=== PATIENT | female | born 1955 | race Caucasian/White ===

== ENCOUNTER 2017-12-11 18:19 | Emergency (ER) | payer MEDICARE, MEDICAID ==
--- NOTE | 2017-12-11 19:08 | EDM.PDOC ---
ED HPI GENERAL MEDICAL PROBLEM - General Chief Complaint: Bite:Animal, Insect Stated Complaint: BEE STING ON LEFT WRIST/INFECTION Time Seen by Provider: 12/11/17 18:55 Source of Information: Reports: Patient History Limitations: Reports: No Limitations - History of Present Illness INITIAL COMMENTS - FREE TEXT/NARRATIVE: The patient got stung by a bee a few days ago and now she has redness and itching to that area. She had a bad bee sting 10 years ago and she had a bad infection and she has a bad scare to her forearm. She denies any fever or chills with this one. She has no chest pain, shortness of breath, abdominal pain, nausea or vomiting. She has some itching with it but very little pain. Onset: Sudden Duration: Day(s): (a couple days ago) Location: Reports: Upper Extremity, Left (Forearm) Quality: Reports: Other (Itchy) Improves with: Reports: None Worsens with: Reports: None Context: Reports: Other (Stung by a bee) Associated Symptoms: Reports: No Other Symptoms Left Arm Pain Score (Numeric/FACES): 2 - Related Data Allergies Allergy/AdvReac Type Severity Reaction Status Date / Time No Known Allergies Allergy Verified 12/11/17 18:43 Home Meds: Home Meds Doxycycline [Vibramycin] 100 mg PO BID #20 cap 12/11/17 [Rx] Lisinopril 10 mg PO DAILY 12/11/17 [History] Simvastatin [Zocor] 20 mg PO BEDTIME 12/11/17 [History] Umeclidinium Brm/Vilanterol Tr [Anoro Ellipta 62.5-25 MCG] 1 puff INH DAILY 05/21 [History] Past Medical History Cardiovascular History: Reports: Hypertension Respiratory History: Reports: Other (See Below) Other Respiratory History: lung issue Social & Family History - Tobacco Use Smoking Status *Q: Current Every Day Smoker Years of Tobacco use: 40 Packs/Tins Daily: 0.5 ED ROS GENERAL - Review of Systems Review Of Systems: See Below Constitutional: Reports: No Symptoms HEENT: Reports: No Symptoms Respiratory: Reports: No Symptoms Cardiovascular: Reports: No Symptoms Endocrine: Reports: No Symptoms GI/Abdominal: Reports: No Symptoms : Reports: No Symptoms Musculoskeletal: Reports: Other (Left forearm redness and itchiness) ED EXAM, ANIMAL BITE - Physical Exam Exam: See Below Exam Limited By: No Limitations General Appearance: Alert, No Apparent Distress Ears: Normal External Exam Nose: Normal Inspection Head: Atraumatic, Normocephalic Neck: Normal Inspection Respiratory/Chest: No Respiratory Distress Extremities: Other (3cm circular area of erythema to the left inner forearm. She has a few small little puncture wounds and 1 larger puncture wound with a scar on it.) Course - Vital Signs Last Recorded V/S: Last Vital Signs Temp 98.2 F 12/11/17 18:44 Pulse 100 12/11/17 18:44 Resp 20 12/11/17 18:44 BP 177/87 H 12/11/17 18:44 Pulse Ox 89 L 12/11/17 18:44 - Re-Assessments/Exams Free Text/Narrative Re-Assessment/Exam: 12/11/17 19:06 She has a cellulitis from a bee sting. I will get her on some doxycycline and have her follow up with Dr Martinez. Departure - Departure Time of Disposition: 19:10 Disposition: Home, Self-Care 01 Condition: Good Clinical Impression: Cellulitis Qualifiers: Site of cellulitis: extremity Site of cellulitis of extremity: upper extremity Laterality: left Qualified Code(s): L03.114 - Cellulitis of left upper limb Bee sting Qualifiers: Encounter type: initial encounter Injury intent: accidental or unintentional Qualified Code(s): T63.441A - Toxic effect of venom of bees, accidental ( unintentional), initial encounter - Discharge Information Prescriptions: Doxycycline [Vibramycin] 100 mg PO BID #20 cap Referrals: Bernard Martinez MD [Primary Care Provider] - 1 Week Additional Instructions: Take the doxycycline 2 times per day for 10 days. Apply warm compresses to the affected area 3 times per day and apply antibiotic ointment after. Follow up with Dr Martinez within a week. Please return if you are worse.
== END 2017-12-11 19:20 | disposition home or self-care (01) ==
LOC: JD.ED 18:19
DX: T63.441A Toxic effect of venom of bees, accidental (unintentional), initial encounter (principal); L03.114 Cellulitis of left upper limb; F17.210 Nicotine dependence, cigarettes, uncomplicated; I10 Essential (primary) hypertension
CPT/HCPCS: 99281; 99283

== ENCOUNTER 2020-08-07 20:14 | Inpatient (IN) | payer MEDICARE, MEDICAID ==
[2020-08-07] MEDS ORDERED: Sodium Chloride 0.9% 10 ML Syringe FLUSH PRN (20:33)
--- NOTE | 2020-08-07 21:21 | EDM.PDOC ---
ED HPI GENERAL MEDICAL PROBLEM - General Chief Complaint: Respiratory Problem Stated Complaint: [facility] Time Seen by Provider: 08/07/20 20:26 Source of Information: Reports: Patient, RN Notes Reviewed History Limitations: Reports: No Limitations - History of Present Illness INITIAL COMMENTS - FREE TEXT/NARRATIVE: Patient is a 65-year-old female presenting to the emergency department after having a fall at home. She has a history of COPD and CHF for which she wears 3 L of chronic home O2. She states of the last few days, she has felt increasingly short of breath and weak. She was walking to the bathroom today and fell backward landing on her tailbone and then hitting her head. She does not feel that she lost consciousness, however she does have a fairly significant headache. She complains of bilateral lower extremity edema. States this has been around for months but that she feels it is worsened over the last few days. She states that she smokes "occasionally ". Denies any cough, fever, chills, nausea, vomiting, or diarrhea. Treatments HALL MONITOR: Reports: Other (see below) Other Treatments HALL MONITOR: nebulizer Headache Pain Score (Numeric/FACES): 9 Buttock Pain Score (Numeric/FACES): 8 - Related Data Allergies Allergy/AdvReac Type Severity Reaction Status Date / Time No Known Allergies Allergy Verified 08/07/20 20:17 Home Meds: Home Meds Simvastatin [Zocor] 20 mg PO BEDTIME 12/11/17 [History] Albuterol [Ventolin HFA] 2 puff INH Q4H PRN 08/07/20 [History] Fluticasone Propion/Salmeterol [Advair Hfa 230-21 Mcg Inhaler] 1 puff IH BID 08/07/20 [History] Furosemide [Lasix] 20 mg PO DAILY 08/07/20 [History] Past Medical History HEENT History: Reports: Impaired Vision Other HEENT History: Wears glasses Cardiovascular History: Reports: Heart Failure, High Cholesterol, Hypertension Respiratory History: Reports: COPD Other Respiratory History: lung issue Dermatologic History: Reports: Cellulitis Social & Family History - Tobacco Use Tobacco Use Status *Q: Former Tobacco User Used Tobacco, but Quit: Yes Month/Year Tobacco Last Used: 01/2019 ED ROS GENERAL - Review of Systems Review Of Systems: See Below Constitutional: Reports: Weakness, Fatigue. Denies: Fever, Chills HEENT: Reports: No Symptoms Respiratory: Reports: Shortness of Breath. Denies: Pleuritic Chest Pain, Cough Cardiovascular: Reports: Edema. Denies: Chest Pain, Lightheadedness Endocrine: Reports: No Symptoms GI/Abdominal: Reports: No Symptoms : Reports: No Symptoms Musculoskeletal: Reports: Back Pain (Lumbar and coccyx.) Skin: Reports: No Symptoms Neurological: Reports: Headache. Denies: Confusion, Dizziness Psychiatric: Reports: No Symptoms Hematologic/Lymphatic: Reports: No Symptoms Immunologic: Reports: No Symptoms ED EXAM, GENERAL - Physical Exam Exam: See Below General Appearance: Alert, WD/WN, No Apparent Distress Respiratory/Chest: No Respiratory Distress, No Accessory Muscle Use, Chest Non- Tender, Decreased Breath Sounds, Crackles (Bilateral bases), Wheezing (Faint expiratory) Cardiovascular: Normal Peripheral Pulses, Regular Rate, Rhythm, No Gallop, No JVD, No Murmur, No Rub, Other (3+ pitting edema to bilateral lower extremities from the level of the ankle to the groin. Pedal pulses 2+.) GI/Abdominal: Normal Bowel Sounds, Soft, Non-Tender, No Organomegaly, No Distention, No Abnormal Bruit, No Mass Back Exam: Normal Inspection, Vertebral Tenderness (L5-S5) Neurological: Alert, Oriented, CN II-XII Intact, Normal Cognition, Normal Gait, Normal Reflexes, No Motor/Sensory Deficits Psychiatric: Normal Affect, Normal Mood Skin Exam: Warm, Dry, Intact, Normal Color, No Rash #1 Interpretation EKG Date: 08/07/20 Time: 20:47 Rhythm: NSR Rate (Beats/Min): 76 [place]: RAD-Right [place] Deviation P-Wave: Present QRS: Normal ST-T: Normal QT: Normal Course - Vital Signs Last Recorded V/S: Last Vital Signs Temp 99.5 F 08/10/20 08:00 Pulse 75 08/10/20 08:00 Resp 18 08/10/20 08:00 BP 153/98 H 08/10/20 08:00 Pulse Ox 92 L 08/10/20 08:00 - Orders/Labs/Meds Orders: Medication Orders Acetaminophen (Tylenol) 975 mg PO Q6H PRN PRN Reason: Pain Albuterol (Proventil Neb Soln) 2.5 mg NEB Q2H PRN PRN Reason: Shortness Of Breath/wheezing Albuterol/Ipratropium (Duoneb 3.0-0.5 Mg/3 Ml) 3 ml NEB BIDRT [facility] Last Admin: 08/10/20 05:17 Dose: 3 ml Documented by: Admin: 08/09/20 20:29 Dose: 3 ml Documented by: Admin: 08/09/20 08:59 Dose: 3 ml Documented by: MARISA Enoxaparin Sodium (Lovenox) 40 mg SUBCUT DAILY [facility] Last Admin: 08/10/20 08:52 Dose: 40 mg Documented by: Admin: 08/09/20 08:07 Dose: 40 mg Documented by: Admin: 08/08/20 08:03 Dose: 40 mg Documented by: JA Furosemide (Lasix) 40 mg IVPUSH BIDDIURETIC [facility] Last Admin: 08/10/20 05:54 Dose: 40 mg Documented by: Admin: 08/09/20 13:58 Dose: 40 mg Documented by: JOSSE Ceftriaxone Sodium 1 gm/ (Sodium Chloride) 100 mls @ 200 mls/hr IV Q24H [facility] Last Admin: 08/09/20 21:09 Dose: 200 mls/hr Documented by: Infusion: 08/08/20 22:46 Dose: 200 mls/hr Documented by: Admin: 08/08/20 22:16 Dose: 200 mls/hr Documented by: EITAN Methylprednisolone Sodium Succinate (Solu-Medrol) 40 mg IVPUSH Q6H [facility] Last Admin: 08/10/20 08:52 Dose: 40 mg Documented by: Admin: 08/10/20 04:05 Dose: 40 mg Documented by: Admin: 08/09/20 19:53 Dose: 40 mg Documented by: Admin: 08/09/20 13:58 Dose: 40 mg Documented by: Admin: 08/09/20 07:38 Dose: 40 mg Documented by: Admin: 08/09/20 02:23 Dose: 40 mg Documented by: Admin: 08/08/20 19:59 Dose: 40 mg Documented by: Admin: 08/08/20 13:02 Dose: 40 mg Documented by: Admin: 08/08/20 07:54 Dose: 40 mg Documented by: JA Morphine Sulfate (Morphine) 2 mg IVPUSH Q2H PRN PRN Reason: Pain Last Admin: 08/09/20 04:31 Dose: 2 mg Documented by: Admin: 08/09/20 01:02 Dose: 2 mg Documented by: EITAN Nystatin (Nystop) 1 gm TOP QID PRN PRN Reason: Itching Last Admin: 08/10/20 10:12 Dose: 1 applic Documented by: JA Ondansetron HCl (Zofran) 4 mg IV Q4H PRN PRN Reason: Nausea/Vomiting Last Admin: 08/10/20 08:52 Dose: 4 mg Documented by: JA Oxycodone HCl (Oxycodone) 10 mg PO Q4H PRN PRN Reason: Pain Last Admin: 08/10/20 05:55 Dose: 10 mg Documented by: Admin: 08/09/20 23:02 Dose: 10 mg Documented by: Admin: 08/09/20 18:53 Dose: 10 mg Documented by: Admin: 08/09/20 13:57 Dose: 10 mg Documented by: Admin: 08/09/20 08:42 Dose: 10 mg Documented by: JOSSE Sodium Chloride (Saline Flush) 10 ml FLUSH ASDIRECTED PRN PRN Reason: Keep Vein Open Last Admin: 08/07/20 20:35 Dose: 10 ml Documented by: PAIGE Spironolactone (Aldactone) 25 mg PO DAILY [facility] Last Admin: 08/10/20 08:53 Dose: 25 mg Documented by: Admin: 08/09/20 08:08 Dose: 25 mg Documented by: JOSSE Labs: Laboratory Tests 08/07/20 08/07/20 08/07/20 Range/Units 20:25 20:25 20:25 WBC 12.16 H (3.98-10.04) K/mm3 RBC 5.04 (3.98-5.22) M/mm3 Hgb 12.1 (11.2-15.7) gm/dl Hct 45.1 H (34.1-44.9) % MCV 89.5 (79.4-94.8) fl MCH 24.0 L (25.6-32.2) pg MCHC 26.8 L (32.2-35.5) g/dl RDW Std Deviation 69.9 H (36.4-46.3) fL Plt Count 216 (182-369) K/mm3 MPV 10.3 (9.4-12.3) fl Neut % (Auto) 82.3 H (34.0-71.1) % Lymph % (Auto) 6.5 L (19.3-51.7) % [place] % (Auto) 9.3 (4.7-12.5) % Eos % (Auto) 1.3 (0.7-5.8) Baso % (Auto) 0.2 (0.1-1.2) % Neut # (Auto) 10.01 H (1.56-6.13) K/mm3 Lymph # (Auto) 0.79 L (1.18-3.74) K/mm3 [place] # (Auto) 1.13 H (0.24-0.36) K/mm3 Eos # (Auto) 0.16 (0.04-0.36) K/mm3 Baso # (Auto) 0.02 (0.01-0.08) K/mm3 Manual Slide Review Abnormal smear Puncture Site ABG pH (7.35-7.45) ABG pCO2 (35.0-45.0) mmHg ABG pO2 (80.0-100.0) mmHg ABG HCO3 (22.0-26.0) meq/L ABG O2 Saturation (96.0-97.0) % ABG Base Excess (-2-2.0) A-a Gradient mmHg O2 Delivery Device Oxygen Flow Rate FiO2 (21.00-100.00) % Sodium 137 (136-145) mEq/L Potassium 4.0 (3.5-5.1) mEq/L Chloride 96 L (98-107) mEq/L Carbon Dioxide 39 H (21-32) mEq/L Anion Gap 6.0 (5-15) BUN 19 H (7-18) mg/dL Creatinine 1.2 H (0.55-1.02) mg/dL Est Cr Clr Drug Dosing TNP Estimated GFR (MDRD) 45 (>60) mL/min BUN/Creatinine Ratio 15.8 (14-18) Glucose 143 H (80-115) mg/dL Lactic Acid (0.4-2.0) mmol/L Calcium 8.8 (8.5-10.1) mg/dL Total Bilirubin 1.5 H (0.2-1.0) mg/dL AST 12 L (15-37) U/L ALT 11 L (14-59) U/L Alkaline Phosphatase 78 (46-116) U/L Troponin I 0.034 (0.00-0.056) ng/mL C-Reactive Protein 1.0 (<1.0) mg/dL NT-Pro-B Natriuret Pep 79254 H (0-125) pg/mL Total Protein 7.2 (6.4-8.2) g/dl Albumin 3.5 (3.4-5.0) g/dl Globulin 3.7 gm/dL Albumin/Globulin Ratio 1.0 (1-2) Urine Color (Yellow) Urine Appearance (Clear) Urine pH (5.0-8.0) Ur Specific [place] (1.005-1.030) Urine Protein (Negative) Urine Glucose (UA) (Negative) Urine Ketones (Negative) Urine Occult Blood (Negative) Urine Nitrite (Negative) Urine Bilirubin (Negative) Urine Urobilinogen (0.2-1.0) Ur Leukocyte Esterase (Negative) U Hyaline Cast (Auto) (0-5) /lpf Urine RBC (0-5) /hpf Urine WBC (0-5) /hpf Urine WBC Clumps (NOT SEEN) /hpf Ur Squamous Epith Cells (0-5) /hpf Urine Bacteria (FEW) /hpf Urine Mucus (FEW) /hpf SARS-CoV-2 RNA (VIVIANA) (NEGATIVE) 08/07/20 08/07/20 08/07/20 Range/Units 20:37 20:45 21:37 WBC (3.98-10.04) K/mm3 RBC (3.98-5.22) M/mm3 Hgb (11.2-15.7) gm/dl Hct (34.1-44.9) % MCV (79.4-94.8) fl MCH (25.6-32.2) pg MCHC (32.2-35.5) g/dl RDW Std Deviation (36.4-46.3) fL Plt Count (182-369) K/mm3 MPV (9.4-12.3) fl Neut % (Auto) (34.0-71.1) % Lymph % (Auto) (19.3-51.7) % [place] % (Auto) (4.7-12.5) % Eos % (Auto) (0.7-5.8) Baso % (Auto) (0.1-1.2) % Neut # (Auto) (1.56-6.13) K/mm3 Lymph # (Auto) (1.18-3.74) K/mm3 [place] # (Auto) (0.24-0.36) K/mm3 Eos # (Auto) (0.04-0.36) K/mm3 Baso # (Auto) (0.01-0.08) K/mm3 Manual Slide Review Puncture Site Lt radial ABG pH 7.29 L (7.35-7.45) ABG pCO2 84.0 H* (35.0-45.0) mmHg ABG pO2 64.0 L (80.0-100.0) mmHg ABG HCO3 39.4 H (22.0-26.0) meq/L ABG O2 Saturation 86.1 L (96.0-97.0) % ABG Base Excess 10.3 H (-2-2.0) A-a Gradient 59 mmHg O2 Delivery Device Nasal cannula Oxygen Flow Rate 3.0 FiO2 32.00 (21.00-100.00) % Sodium (136-145) mEq/L Potassium (3.5-5.1) mEq/L Chloride (98-107) mEq/L Carbon Dioxide (21-32) mEq/L Anion Gap (5-15) BUN (7-18) mg/dL Creatinine (0.55-1.02) mg/dL Est Cr Clr Drug Dosing Estimated GFR (MDRD) (>60) mL/min BUN/Creatinine Ratio (14-18) Glucose (80-115) mg/dL Lactic Acid (0.4-2.0) mmol/L Calcium (8.5-10.1) mg/dL Total Bilirubin (0.2-1.0) mg/dL AST (15-37) U/L ALT (14-59) U/L Alkaline Phosphatase (46-116) U/L Troponin I (0.00-0.056) ng/mL C-Reactive Protein (<1.0) mg/dL NT-Pro-B Natriuret Pep (0-125) pg/mL Total Protein (6.4-8.2) g/dl Albumin (3.4-5.0) g/dl Globulin gm/dL Albumin/Globulin Ratio (1-2) Urine Color Brown H (Yellow) Urine Appearance Turbid H (Clear) Urine pH 6.0 (5.0-8.0) Ur Specific [place] > or = 1.030 (1.005-1.030) Urine Protein 3+ H (Negative) Urine Glucose (UA) Negative (Negative) Urine Ketones Trace H (Negative) Urine Occult Blood 3+ H (Negative) Urine Nitrite Positive H (Negative) Urine Bilirubin 2+ H (Negative) Urine Urobilinogen >=8.0 H (0.2-1.0) Ur Leukocyte Esterase Trace H (Negative) U Hyaline Cast (Auto) 0-5 (0-5) /lpf Urine RBC Too numerous to cnt H (0-5) /hpf Urine WBC 20-30 H (0-5) /hpf Urine WBC Clumps Many (NOT SEEN) /hpf Ur Squamous Epith Cells 0-5 (0-5) /hpf Urine Bacteria Many H (FEW) /hpf Urine Mucus Moderate H (FEW) /hpf SARS-CoV-2 RNA ([facility]IVIANA) Negative (NEGATIVE) 08/07/20 Range/Units 22:32 WBC (3.98-10.04) K/mm3 RBC (3.98-5.22) M/mm3 Hgb (11.2-15.7) gm/dl Hct (34.1-44.9) % MCV (79.4-94.8) fl MCH (25.6-32.2) pg MCHC (32.2-35.5) g/dl RDW Std Deviation (36.4-46.3) fL Plt Count (182-369) K/mm3 MPV (9.4-12.3) fl Neut % (Auto) (34.0-71.1) % Lymph % (Auto) (19.3-51.7) % [place] % (Auto) (4.7-12.5) % Eos % (Auto) (0.7-5.8) Baso % (Auto) (0.1-1.2) % Neut # (Auto) (1.56-6.13) K/mm3 Lymph # (Auto) (1.18-3.74) K/mm3 [place] # (Auto) (0.24-0.36) K/mm3 Eos # (Auto) (0.04-0.36) K/mm3 Baso # (Auto) (0.01-0.08) K/mm3 Manual Slide Review Puncture Site ABG pH (7.35-7.45) ABG pCO2 (35.0-45.0) mmHg ABG pO2 (80.0-100.0) mmHg ABG HCO3 (22.0-26.0) meq/L ABG O2 Saturation (96.0-97.0) % ABG Base Excess (-2-2.0) A-a Gradient mmHg O2 Delivery Device Oxygen Flow Rate FiO2 (21.00-100.00) % Sodium (136-145) mEq/L Potassium (3.5-5.1) mEq/L Chloride (98-107) mEq/L Carbon Dioxide (21-32) mEq/L Anion Gap (5-15) BUN (7-18) mg/dL Creatinine (0.55-1.02) mg/dL Est Cr Clr Drug Dosing Estimated GFR (MDRD) (>60) mL/min BUN/Creatinine Ratio (14-18) Glucose (80-115) mg/dL Lactic Acid 1.4 (0.4-2.0) mmol/L Calcium (8.5-10.1) mg/dL Total Bilirubin (0.2-1.0) mg/dL AST (15-37) U/L ALT (14-59) U/L Alkaline Phosphatase (46-116) U/L Troponin I (0.00-0.056) ng/mL C-Reactive Protein (<1.0) mg/dL NT-Pro-B Natriuret Pep (0-125) pg/mL Total Protein (6.4-8.2) g/dl Albumin (3.4-5.0) g/dl Globulin gm/dL Albumin/Globulin Ratio (1-2) Urine Color (Yellow) Urine Appearance (Clear) Urine pH (5.0-8.0) Ur Specific [place] (1.005-1.030) Urine Protein (Negative) Urine Glucose (UA) (Negative) Urine Ketones (Negative) Urine Occult Blood (Negative) Urine Nitrite (Negative) Urine Bilirubin (Negative) Urine Urobilinogen (0.2-1.0) Ur Leukocyte Esterase (Negative) U Hyaline Cast (Auto) (0-5) /lpf Urine RBC (0-5) /hpf Urine WBC (0-5) /hpf Urine WBC Clumps (NOT SEEN) /hpf Ur Squamous Epith Cells (0-5) /hpf Urine Bacteria (FEW) /hpf Urine Mucus (FEW) /hpf SARS-CoV-2 RNA ([facility]NA) (NEGATIVE) Meds: Medications Generic Name Dose Route Start Last Admin Trade Name Freq PRN Reason Stop Dose Admin Acetaminophen 975 mg 08/09/20 08:32 Tylenol PO Q6H PRN Pain Albuterol 2.5 mg 08/07/20 23:27 Proventil Neb Soln NEB Q2H PRN Shortness Of Breath/wheezing Albuterol/Ipratropium 3 ml 08/09/20 09:00 08/10/20 05:17 Duoneb 3.0-0.5 Mg/3 Ml NEB 3 ml BIDRT MESSI Administration Enoxaparin Sodium 40 mg 08/08/20 09:00 08/10/20 08:52 Lovenox SUBCUT 40 mg DAILY MESSI Administration Furosemide 40 mg 08/09/20 14:00 08/10/20 05:54 Lasix IVPUSH 40 mg BIDDIURETIC MESSI Administration Ceftriaxone Sodium 1 gm/ 100 mls @ 200 mls/hr 08/08/20 22:00 08/09/20 21:09 Sodium Chloride IV 200 mls/hr Q24H MESSI Administration Methylprednisolone Sodium Succinate 40 mg 08/08/20 08:00 08/10/20 08:52 Solu-Medrol IVPUSH 40 mg Q6H MESSI Administration Morphine Sulfate 2 mg 08/09/20 00:57 08/09/20 04:31 Morphine IVPUSH 2 mg Q2H PRN Administration Pain Nystatin 1 gm 08/10/20 10:07 08/10/20 10:12 Nystop TOP 1 applic QID PRN Administration Itching Ondansetron HCl 4 mg 08/07/20 23:27 08/10/20 08:52 Zofran IV 4 mg Q4H PRN Administration Nausea/Vomiting Oxycodone HCl 10 mg 08/09/20 08:32 08/10/20 05:55 Oxycodone PO 10 mg Q4H PRN Administration Pain Sodium Chloride 10 ml 08/07/20 20:33 08/07/20 20:35 Saline Flush FLUSH 10 ml ASDIRECTED PRN Administration Keep Vein Open Spironolactone 25 mg 08/09/20 09:00 08/10/20 08:53 Aldactone PO 25 mg DAILY MESSI Administration Discontinued Medications Generic Name Dose Route Start Last Admin Trade Name Freq PRN Reason Stop Dose Admin Albuterol/Ipratropium 3 ml 08/08/20 03:00 08/09/20 02:18 Duoneb 3.0-0.5 Mg/3 Ml NEB 3 ml Q6HRRT MESSI Administration Bisacodyl 10 mg 08/09/20 10:45 08/09/20 12:44 Dulcolax RECTAL 08/09/20 10:46 Not Given ONETIME ONE Bisacodyl 10 mg 08/10/20 09:43 08/10/20 10:12 Dulcolax RECTAL 08/10/20 09:44 10 mg ONETIME ONE Administration Furosemide 40 mg 08/07/20 21:50 08/07/20 21:56 Lasix IV 08/07/20 21:51 40 mg ONETIME ONE Administration Furosemide 40 mg 08/08/20 06:00 08/09/20 06:16 Lasix IVPUSH 40 mg BIDDIURETIC MESSI Administration Ceftriaxone Sodium 2 gm/ 100 mls @ 200 mls/hr 08/07/20 21:59 08/07/20 22:39 Sodium Chloride IV 08/07/20 22:28 200 mls/hr ONETIME ONE Administration Magnesium Sulfate 4 gm/ Premix 50 mls @ 12.5 mls/hr 08/09/20 08:00 08/09/20 08:09 IV 08/09/20 11:59 12.5 mls/hr ONETIME ONE Administration Influenza Virus Vaccine 1 each 08/08/20 00:14 Pharmacy To Dose - Influenza Vaccine IM 08/08/20 00:15 ONETIME ONE Influenza Virus Vaccine 240 mcg 08/08/20 10:00 Fluzone High-Dose Quad IM 08/08/20 10:01 .ONCE ONE Magnesium Hydroxide 30 ml 08/10/20 09:22 08/10/20 10:58 Milk Of Magnesia PO 08/10/20 09:23 Not Given ONETIME ONE Methylprednisolone Sodium Succinate 125 mg 08/07/20 23:31 08/07/20 23:54 Solu-Medrol IVPUSH 08/07/20 23:32 125 mg ONETIME ONE Administration Metoclopramide HCl 5 mg 08/10/20 09:34 08/10/20 09:56 Reglan IVPUSH 08/10/20 09:35 5 mg ONETIME ONE Administration Morphine Sulfate 2 mg 08/07/20 21:54 08/07/20 22:02 Morphine IVPUSH 08/07/20 21:55 2 mg ONETIME ONE Administration Morphine Sulfate 2 mg 08/07/20 23:27 08/08/20 20:00 Morphine IVPUSH 08/08/20 23:29 2 mg Q2H PRN Administration Pain (severe 7-10) Potassium Chloride 40 meq 08/09/20 08:00 08/09/20 08:08 Klor-Con M20 PO 08/09/20 08:01 40 meq ONETIME ONE Administration - Re-Assessments/Exams Free Text/Narrative Re-Assessment/Exam: Patient is a 65-year-old female presenting to the emergency department after having a fall at home. She states that she has been increasingly short of breath and weak over the last few days. She is a history of CHF and COPD. This evening, she was walking to the bathroom states she fell backward landing on her buttocks and hitting the back of her head. She does not feel that she lost consciousness. She does complain of a headache as well as sacral pain. On exam, she has fine crackles to the bilateral bases with some expiratory wheezing throughout. Lung sounds are diminished. Oxygen saturation was initially 90% on her home 3 L, however it had decreased to 83%. We have ordered an ABG to be completed prior to turning her O2 up. I have also ordered CBC, CMP, CRP, troponin, proBNP, EKG, chest x-ray, sacral x-ray, lumbar x-ray, head CT. 08/07/20 2100 ABG results on 3 L by nasal cannula showed pH of 7.29, PCO2 84, PO2 64, bicarb 39.4, O2 saturation 86.1 with a base excess of 10.3. This is indicating that patient is in partially compensated respiratory acidosis. I have ordered BiPAP to be started. Although remaining work-up is not resulted yet, I did call and speak with the hospitalist, Dr. Shirley to make them aware of the patient and that she will need to be admitted given her hypercapnia. 08/07/20 21:24 Hematology was significant for WBC minimally elevated at 12.16, CO2 39, BUN 19, creatinine 1.2, total bili 1.5, proBNP 10,237. Troponin was negative. EKG showed normal sinus rhythm at 76 with no signs of acute ischemia. Results of urinalysis and radiology studies are pending. 08/07/20 22:27 Urinalysis was grossly positive for urinary tract infection. Urine has been sent for culture. Have ordered blood cultures and lactic acid. Once cultures are collected, we will give Rocephin 2 g IV. Results of radiology indicate that she has a nondisplaced lower sacral fracture, chronic L2 compression fracture with mild compression deformities of L1 and L3, chest x-ray shows emphysema with bronchial wall thickening and some linear interstitial densities in the right lung base suggesting COPD exacerbation. Head CT shows no acute intracranial abnormalities. Patient is tolerating BiPAP at 12/6 on 6 L of O2. Oxygen saturations in the low 90s. Case discussed with Dr. Shirley. He will admit the patient to the ICU. Departure - Departure Time of Disposition: 22:27 Disposition: Admitted As Inpatient 66 Condition: Fair Clinical Impression: COPD exacerbation, Hypercapnic acidosis Congestive heart failure Qualifiers: Heart failure type: unspecified Heart failure chronicity: acute on chronic Qualified Code(s): I50.9 - Heart failure, unspecified Urinary tract infection Qualifiers: Urinary tract infection type: site unspecified Hematuria presence: with hematuria Qualified Code(s): N39.0 - Urinary tract infection, site not specified Sacral fracture Qualifiers: Encounter type: initial encounter Zone of sacrum fracture: unspecified portion of sacrum Fracture type: closed Qualified Code(s): S32.10XA - Unspecified fracture of sacrum, initial encounter for closed fracture - Discharge Information Sepsis Event Note (ED) - Evaluation Sepsis Screening Result: No Definite Risk
[2020-08-07] MEDS ORDERED: Furosemide 40 MG/4 ML VIAL IV ONE (21:50)
[2020-08-07] MEDS ORDERED: Morphine 2 MG/ML SYRINGE IVPUSH ONE (21:54)
[2020-08-07] MEDS ORDERED: cefTRIAXone 2 GM in Sodium Chloride 0.9% 100 ML IV ONE (21:59)
[2020-08-07] MEDS ORDERED: Ondansetron 4 MG/2 ML SDV IV PRN (23:27)
[2020-08-07] MEDS ORDERED: Albuterol 0.083% 2.5 MG/3 ML Neb Soln NEB PRN (23:27)
[2020-08-07] MEDS ORDERED: methylPREDNISolone Sodium Succinate 125 MG/2 ML SDV IVPUSH ONE (23:31)
--- NOTE | 2020-08-07 23:40 | PCM.HP.2 ---
H&P History of Present Illness - General Date of Service: 08/07/20 Admit Problem/Dx: Admission Diagnosis/Problem Admission Diagnosis/Problem Hypercapnia with mixed acid-base disorder - History of Present Illness Initial Comments - Free Text/Narative: 35-year-old female who has had increasing shortness of breath over the last 2 days presents to the emergency department with worsening shortness of breath, dyspnea on exertion, and cough. Patient is normally on 2 L of O2 via nasal cannula, but has increased to 3 L over the last couple of days because of shortness of breath. Today when she was walking to the bathroom she became lightheaded and fell backwards landing on her tailbone. In the emergency department she was found to have a nondisplaced sacral fracture and old compression fractures and degenerative changes of the lumbar spine. Head CT showed nothing significant and no bleeding. Patient was found to have severe hypercapnia with a PCO2 of 84 and a pH of 7.29. Patient was placed on BiPAP 07/09 and repeat blood gases showed some improvement in PCO2 of 81.2 and a pH of 7.32. Chest x-ray did show emphysematous changes and bronchitis. Headache Pain Score (Numeric/FACES): 9 Buttock Pain Score (Numeric/FACES): 8 - Related Data Allergies/Adverse Reactions: Allergies Allergy/AdvReac Type Severity Reaction Status Date / Time No Known Allergies Allergy Verified 08/07/20 20:17 Home Medications: Home Meds Simvastatin [Zocor] 20 mg PO BEDTIME 12/11/17 [History] Albuterol [Ventolin HFA] 2 puff INH Q4H PRN 08/07/20 [History] Fluticasone Propion/Salmeterol [Advair Hfa 230-21 Mcg Inhaler] 1 puff IH BID 08/07/20 [History] Furosemide [Lasix] 20 mg PO DAILY 08/07/20 [History] Past Medical History HEENT History: Reports: Impaired Vision Other HEENT History: Wears glasses Cardiovascular History: Reports: Heart Failure, High Cholesterol, Hypertension Respiratory History: Reports: COPD Other Respiratory History: lung issue Dermatologic History: Reports: Cellulitis Social & Family History - Tobacco Use Tobacco Use Status *Q: Former Tobacco User Used Tobacco, but Quit: Yes Month/Year Tobacco Last Used: 01/2019 H&P Review of Systems - Review of Systems: Review Of Systems: Comprehensive ROS is negative, except as noted in HPI. Exam - Exam Exam: See Below - Vital Signs Vital Signs: Last Vital Signs Temp 97.5 F 08/07/20 20:20 Pulse 75 08/07/20 22:45 Resp 18 08/07/20 22:45 BP 122/78 08/07/20 22:45 Pulse Ox 95 08/07/20 22:45 - Exam Quality Assessment: Supplemental Oxygen, Urinary Catheter General: Alert, Oriented, 4 HEENT: Conjunctiva Clear, Hearing Intact, Mucosa Moist & [place], Normal Nasal Septum Neck: Supple, Trachea Midline, 2 Lungs: Decreased Breath Sounds, Wheezing (Distant breath sounds with occasional wheezing). No: Normal Respiratory Effort (Mildly increased respiratory effort) Cardiovascular: Regular Rate, Regular Rhythm, Other (Distant breath sounds) GI/Abdominal Exam: Normal Bowel Sounds, Soft, Non-Tender, No Organomegaly, No Distention, No Abnormal Bruit, No Mass Back Exam: Normal Inspection Extremities: Normal Inspection, Normal Range of Motion, Non-Tender, Normal Capillary Refill, Pedal Edema (2+ pitting edema) Skin: Warm, Dry, Intact Neuro Extensive - Mental Status: Alert, Oriented x3, Normal Mood/Affect, Normal Cognition Psychiatric: Alert, Normal Affect, Normal Mood - Patient Data Lab Results Last 24 hrs: Laboratory Results - last 24 hr 08/07/20 08/07/20 08/07/20 Range/Units 20:25 20:25 20:25 WBC 12.16 H (3.98-10.04) K/mm3 RBC 5.04 (3.98-5.22) M/mm3 Hgb 12.1 (11.2-15.7) gm/dl Hct 45.1 H (34.1-44.9) % MCV 89.5 (79.4-94.8) fl MCH 24.0 L (25.6-32.2) pg MCHC 26.8 L (32.2-35.5) g/dl RDW Std Deviation 69.9 H (36.4-46.3) fL Plt Count 216 (182-369) K/mm3 MPV 10.3 (9.4-12.3) fl Neut % (Auto) 82.3 H (34.0-71.1) % Lymph % (Auto) 6.5 L (19.3-51.7) % Maury % (Auto) 9.3 (4.7-12.5) % Eos % (Auto) 1.3 (0.7-5.8) Baso % (Auto) 0.2 (0.1-1.2) % Neut # (Auto) 10.01 H (1.56-6.13) K/mm3 Lymph # (Auto) 0.79 L (1.18-3.74) K/mm3 Maury # (Auto) 1.13 H (0.24-0.36) K/mm3 Eos # (Auto) 0.16 (0.04-0.36) K/mm3 Baso # (Auto) 0.02 (0.01-0.08) K/mm3 Manual Slide Review Abnormal smear Puncture Site ABG pH (7.35-7.45) ABG pCO2 (35.0-45.0) mmHg ABG pO2 (80.0-100.0) mmHg ABG HCO3 (22.0-26.0) meq/L ABG O2 Saturation (96.0-97.0) % ABG Base Excess (-2-2.0) A-a Gradient mmHg O2 Delivery Device Oxygen Flow Rate FiO2 (21.00-100.00) % Blood Gas Comments Sodium 137 (136-145) mEq/L Potassium 4.0 (3.5-5.1) mEq/L Chloride 96 L (98-107) mEq/L Carbon Dioxide 39 H (21-32) mEq/L Anion Gap 6.0 (5-15) BUN 19 H (7-18) mg/dL Creatinine 1.2 H (0.55-1.02) mg/dL Est Cr Clr Drug Dosing TNP Estimated GFR (MDRD) 45 (>60) mL/min BUN/Creatinine Ratio 15.8 (14-18) Glucose 143 H (80-115) mg/dL Lactic Acid (0.4-2.0) mmol/L Calcium 8.8 (8.5-10.1) mg/dL Total Bilirubin 1.5 H (0.2-1.0) mg/dL AST 12 L (15-37) U/L ALT 11 L (14-59) U/L Alkaline Phosphatase 78 (46-116) U/L Troponin I 0.034 (0.00-0.056) ng/mL C-Reactive Protein 1.0 (<1.0) mg/dL NT-Pro-B Natriuret Pep 57505 H (0-125) pg/mL Total Protein 7.2 (6.4-8.2) g/dl Albumin 3.5 (3.4-5.0) g/dl Globulin 3.7 gm/dL Albumin/Globulin Ratio 1.0 (1-2) Urine Color (Yellow) Urine Appearance (Clear) Urine pH (5.0-8.0) Ur Specific Chancellor (1.005-1.030) Urine Protein (Negative) Urine Glucose (UA) (Negative) Urine Ketones (Negative) Urine Occult Blood (Negative) Urine Nitrite (Negative) Urine Bilirubin (Negative) Urine Urobilinogen (0.2-1.0) Ur Leukocyte Esterase (Negative) U Hyaline Cast (Auto) (0-5) /lpf Urine RBC (0-5) /hpf Urine WBC (0-5) /hpf Urine WBC Clumps (NOT SEEN) /hpf Ur Squamous Epith Cells (0-5) /hpf Urine Bacteria (FEW) /hpf Urine Mucus (FEW) /hpf SARS-CoV-2 RNA (VIVIANA) (NEGATIVE) 08/07/20 08/07/20 08/07/20 Range/Units 20:37 20:45 21:37 WBC (3.98-10.04) K/mm3 RBC (3.98-5.22) M/mm3 Hgb (11.2-15.7) gm/dl Hct (34.1-44.9) % MCV (79.4-94.8) fl MCH (25.6-32.2) pg MCHC (32.2-35.5) g/dl RDW Std Deviation (36.4-46.3) fL Plt Count (182-369) K/mm3 MPV (9.4-12.3) fl Neut % (Auto) (34.0-71.1) % Lymph % (Auto) (19.3-51.7) % Maury % (Auto) (4.7-12.5) % Eos % (Auto) (0.7-5.8) Baso % (Auto) (0.1-1.2) % Neut # (Auto) (1.56-6.13) K/mm3 Lymph # (Auto) (1.18-3.74) K/mm3 Maury # (Auto) (0.24-0.36) K/mm3 Eos # (Auto) (0.04-0.36) K/mm3 Baso # (Auto) (0.01-0.08) K/mm3 Manual Slide Review Puncture Site Lt radial ABG pH 7.29 L (7.35-7.45) ABG pCO2 84.0 H* (35.0-45.0) mmHg ABG pO2 64.0 L (80.0-100.0) mmHg ABG HCO3 39.4 H (22.0-26.0) meq/L ABG O2 Saturation 86.1 L (96.0-97.0) % ABG Base Excess 10.3 H (-2-2.0) A-a Gradient 59 mmHg O2 Delivery Device Nasal cannula Oxygen Flow Rate 3.0 FiO2 32.00 (21.00-100.00) % Blood Gas Comments Sodium (136-145) mEq/L Potassium (3.5-5.1) mEq/L Chloride (98-107) mEq/L Carbon Dioxide (21-32) mEq/L Anion Gap (5-15) BUN (7-18) mg/dL Creatinine (0.55-1.02) mg/dL Est Cr Clr Drug Dosing Estimated GFR (MDRD) (>60) mL/min BUN/Creatinine Ratio (14-18) Glucose (80-115) mg/dL Lactic Acid (0.4-2.0) mmol/L Calcium (8.5-10.1) mg/dL Total Bilirubin (0.2-1.0) mg/dL AST (15-37) U/L ALT (14-59) U/L Alkaline Phosphatase (46-116) U/L Troponin I (0.00-0.056) ng/mL C-Reactive Protein (<1.0) mg/dL NT-Pro-B Natriuret Pep (0-125) pg/mL Total Protein (6.4-8.2) g/dl Albumin (3.4-5.0) g/dl Globulin gm/dL Albumin/Globulin Ratio (1-2) Urine Color Brown H (Yellow) Urine Appearance Turbid H (Clear) Urine pH 6.0 (5.0-8.0) Ur Specific [place] > or = 1.030 (1.005-1.030) Urine Protein 3+ H (Negative) Urine Glucose (UA) Negative (Negative) Urine Ketones Trace H (Negative) Urine Occult Blood 3+ H (Negative) Urine Nitrite Positive H (Negative) Urine Bilirubin 2+ H (Negative) Urine Urobilinogen >=8.0 H (0.2-1.0) Ur Leukocyte Esterase Trace H (Negative) U Hyaline Cast (Auto) 0-5 (0-5) /lpf Urine RBC Too numerous to cnt H (0-5) /hpf Urine WBC 20-30 H (0-5) /hpf Urine WBC Clumps Many (NOT SEEN) /hpf Ur Squamous Epith Cells 0-5 (0-5) /hpf Urine Bacteria Many H (FEW) /hpf Urine Mucus Moderate H (FEW) /hpf SARS-CoV-2 RNA (VIVIANA) Negative (NEGATIVE) 08/07/20 08/07/20 Range/Units 22:32 23:19 WBC (3.98-10.04) K/mm3 RBC (3.98-5.22) M/mm3 Hgb (11.2-15.7) gm/dl Hct (34.1-44.9) % MCV (79.4-94.8) fl MCH (25.6-32.2) pg MCHC (32.2-35.5) g/dl RDW Std Deviation (36.4-46.3) fL Plt Count (182-369) K/mm3 MPV (9.4-12.3) fl Neut % (Auto) (34.0-71.1) % Lymph % (Auto) (19.3-51.7) % Maury % (Auto) (4.7-12.5) % Eos % (Auto) (0.7-5.8) Baso % (Auto) (0.1-1.2) % Neut # (Auto) (1.56-6.13) K/mm3 Lymph # (Auto) (1.18-3.74) K/mm3 Maury # (Auto) (0.24-0.36) K/mm3 Eos # (Auto) (0.04-0.36) K/mm3 Baso # (Auto) (0.01-0.08) K/mm3 Manual Slide Review Puncture Site Lt radial ABG pH 7.32 L (7.35-7.45) ABG pCO2 81.2 H* (35.0-45.0) mmHg ABG pO2 62.0 L (80.0-100.0) mmHg ABG HCO3 40.7 H (22.0-26.0) meq/L ABG O2 Saturation 84.3 L (96.0-97.0) % ABG Base Excess 11.9 H (-2-2.0) A-a Gradient 135 mmHg O2 Delivery Device Bipap Oxygen Flow Rate 5.0 FiO2 42.00 (21.00-100.00) % Blood Gas Comments Bipap 12/6 Sodium (136-145) mEq/L Potassium (3.5-5.1) mEq/L Chloride (98-107) mEq/L Carbon Dioxide (21-32) mEq/L Anion Gap (5-15) BUN (7-18) mg/dL Creatinine (0.55-1.02) mg/dL Est Cr Clr Drug Dosing Estimated GFR (MDRD) (>60) mL/min BUN/Creatinine Ratio (14-18) Glucose (80-115) mg/dL Lactic Acid 1.4 (0.4-2.0) mmol/L Calcium (8.5-10.1) mg/dL Total Bilirubin (0.2-1.0) mg/dL AST (15-37) U/L ALT (14-59) U/L Alkaline Phosphatase (46-116) U/L Troponin I (0.00-0.056) ng/mL C-Reactive Protein (<1.0) mg/dL NT-Pro-B Natriuret Pep (0-125) pg/mL Total Protein (6.4-8.2) g/dl Albumin (3.4-5.0) g/dl Globulin gm/dL Albumin/Globulin Ratio (1-2) Urine Color (Yellow) Urine Appearance (Clear) Urine pH (5.0-8.0) Ur Specific Chancellor (1.005-1.030) Urine Protein (Negative) Urine Glucose (UA) (Negative) Urine Ketones (Negative) Urine Occult Blood (Negative) Urine Nitrite (Negative) Urine Bilirubin (Negative) Urine Urobilinogen (0.2-1.0) Ur Leukocyte Esterase (Negative) U Hyaline Cast (Auto) (0-5) /lpf Urine RBC (0-5) /hpf Urine WBC (0-5) /hpf Urine WBC Clumps (NOT SEEN) /hpf Ur Squamous Epith Cells (0-5) /hpf Urine Bacteria (FEW) /hpf Urine Mucus (FEW) /hpf SARS-CoV-2 RNA (VIVIANA) (NEGATIVE) Result Diagrams: 08/08/20 04:57 08/08/20 04:57 Sepsis Event Note - Evaluation Sepsis Screening Result: No Definite Risk - Focused Exam Vital Signs: Vital Signs Temp Pulse Resp BP Pulse Ox Pulse Ox 08/07/20 22:45 75 18 122/78 95 08/07/20 21:51 92 L 08/07/20 20:20 97.5 F 80 26 H 140/83 90 L - Problem List (1) COPD exacerbation SNOMED Code(s): 882430601 ICD Code: J44.1 - CHRONIC OBSTRUCTIVE PULMONARY DISEASE W (ACUTE) EXACERB ATION Status: Acute Current Visit: Yes (2) Congestive heart failure SNOMED Code(s): 25699841 ICD Code: I50.9 - HEART FAILURE, UNSPECIFIED Status: Acute Current Visit: Yes Qualifiers: Heart failure type: unspecified Heart failure chronicity: acute on chronic Qualified Code(s): I50.9 - Heart failure, unspecified (3) Hypercapnic acidosis SNOMED Code(s): 99175373 ICD Code: E87.2 - ACIDOSIS Status: Acute Current Visit: Yes (4) Sacral fracture SNOMED Code(s): 788098699 ICD Code: S32.10XA - UNSP FRACTURE OF SACRUM, INIT ENCNTR FOR CLOSED FRACTURE Status: Acute Current Visit: Yes Qualifiers: Encounter type: initial encounter Zone of sacrum fracture: unspecified portion of sacrum Fracture type: closed Qualified Code(s): S32.10XA - Unspecified fracture of sacrum, initial encounter for closed fracture (5) Urinary tract infection SNOMED Code(s): 36057879 ICD Code: N39.0 - URINARY TRACT INFECTION, SITE NOT SPECIFIED Status: Acute Current Visit: Yes Qualifiers: Urinary tract infection type: site unspecified Hematuria presence: with hematuria Qualified Code(s): N39.0 - Urinary tract infection, site not specified; R31.9 - Hematuria, unspecified Problem List Initiated/Reviewed/Updated: Yes Orders Last 24hrs: Active Orders 24 hr Category Date Time Status Patient Status [ADT] Routine ADT 08/07/20 22:53 Active BIPAP [RT BiPAP/CPAP] [RC] ASDIRECTED Care 08/07/20 20:58 Active EKG Documentation Completion [RC] STAT Care 08/07/20 20:31 Active Insert [place] Catheter [Insert Urinary Catheter] [OM.PC] Care 08/07/20 21:30 Ordered Q24H Oxygen Therapy [RC] PRN Care 08/07/20 23:27 Ordered Peripheral IV Care [RC] . DIRECTED Care 08/07/20 20:34 Active RT Aerosol Therapy [RC] ASDIRECTED Care 08/07/20 23:30 Ordered Up With Assistance [RC] ASDIRECTED Care 08/07/20 23:27 Ordered Urinary Catheter Assessment [RC] ASDIRECTED Care 08/07/20 21:27 Active VTE/DVT Education [RC] PER UNIT ROUTINE Care 08/07/20 23:27 Ordered Vital Signs [RC] Q4H Care 08/07/20 23:27 Ordered Clear Liquid Diet [DIET] Diet 08/08/20 Breakfast Ordered Chest 2V [CR] Stat Exams 08/07/20 20:33 Taken Head wo Cont [CT] Stat Exams 08/07/20 20:33 Taken Lumbar Spine 2 or 3V [CR] Stat Exams 08/07/20 20:30 Taken Sacrum Coccyx Min 2V [CR] Stat Exams 08/07/20 20:36 Taken BLOOD GAS ARTERIAL [BG] Routine Lab 08/08/20 06:30 Ordered CBC WITH AUTO DIFF [HEME] AM Lab 08/08/20 05:11 Ordered CMP [COMPREHENSIVE METABOLIC PN,CMP] [CHEM] AM Lab 08/08/20 05:11 Ordered CULTURE BLOOD [BC] Stat Lab 08/07/20 22:17 Received CULTURE BLOOD [BC] Stat Lab 08/07/20 22:32 Received CULTURE URINE [RM] Stat Lab 08/07/20 21:37 Received MAGNESIUM [CHEM] AM Lab 08/08/20 05:11 Ordered PHOSPHORUS [CHEM] AM Lab 08/08/20 05:11 Ordered Albuterol [Proventil Neb Soln] Med 08/07/20 23:27 Ordered 2.5 mg NEB Q2H PRN Albuterol/Ipratropium [DuoNeb 3.0-0.5 MG/3 ML] Med 08/08/20 03:00 Ordered 3 ml NEB Q6HRRT Enoxaparin [Lovenox] Med 08/08/20 09:00 Ordered 40 mg SUBCUT DAILY Furosemide [Lasix] Med 08/08/20 06:00 Ordered 40 mg IVPUSH BIDDIURETIC Morphine Med 08/07/20 23:27 Ordered 2 mg IVPUSH Q2H PRN Ondansetron [Zofran] Med 08/07/20 23:27 Ordered 4 mg IV Q4H PRN Sodium Chloride 0.9% [Saline Flush] Med 08/07/20 20:33 Active 10 ml FLUSH ASDIRECTED PRN cefTRIAXone [Rocephin] 1 gm Med 08/08/20 22:00 Ordered Sodium Chloride 0.9% [Normal Saline] 100 ml IV Q24H methylPREDNISolone Sod Succ [Solu-MEDROL] Med 08/07/20 23:31 Once 125 mg IVPUSH ONETIME ONE methylPREDNISolone Sod Succ [Solu-MEDROL] Med 08/08/20 08:00 Ordered 40 mg IVPUSH Q6H Blood Culture x2 Reflex Set [OM.PC] Stat Oth 08/07/20 21:56 Ordered Peripheral IV Insertion Adult [OM.PC] Stat Oth 08/07/20 20:30 Ordered Resuscitation Status Routine Resus Stat 08/07/20 23:27 Ordered Medication Orders Albuterol (Proventil Neb Soln) 2.5 mg NEB Q2H PRN PRN Reason: Shortness Of Breath/wheezing Albuterol/Ipratropium (Duoneb 3.0-0.5 Mg/3 Ml) 3 ml NEB Q6HRRT MESSI Enoxaparin Sodium (Lovenox) 40 mg SUBCUT DAILY MESSI Furosemide (Lasix) 40 mg IVPUSH BIDDIURETIC MESSI Ceftriaxone Sodium 1 gm/ (Sodium Chloride) 100 mls @ 200 mls/hr IV Q24H MESSI Methylprednisolone Sodium Succinate (Solu-Medrol) 125 mg IVPUSH ONETIME ONE Stop: 08/07/20 23:32 Methylprednisolone Sodium Succinate (Solu-Medrol) 40 mg IVPUSH Q6H MESSI Morphine Sulfate (Morphine) 2 mg IVPUSH Q2H PRN PRN Reason: Pain (severe 7-10) Stop: 08/08/20 23:29 Ondansetron HCl (Zofran) 4 mg IV Q4H PRN PRN Reason: Nausea/Vomiting Sodium Chloride (Saline Flush) 10 ml FLUSH ASDIRECTED PRN PRN Reason: Keep Vein Open Last Admin: 08/07/20 20:35 Dose: 10 ml Documented by: PAIGE Assessment/Plan Comment:: Assessment 65-year-old female with history of coronary artery disease and congestive heart failure presents to the emergency department with increasing shortness of breath and dyspnea on exertion for 2 days. Exacerbation of CHF and COPD with severe hypercapnia * Patient increased her home O2 from 2 L/min to 3 L/min likely worsening her hypercapnia. * Significant increase in her respiratory rate. * White count 12,000 with left shift. * Chest x-ray with no significant infiltrate or edema, but significant for emphysema with bronchitis. * proBNP of 10,237 with known history of congestive heart failure. * Initial PCO2 above 80 with only slight improvement after starting BiPAP. * Initial pH low at 7.29 * No significant mental status changes. * Started on Rocephin in the emergency department and given Lasix IV * She is on Advair at home. Nondisplaced sacral fracture * Morphine 2 mg IV in the emergency department with good results. UTI * Patient denies any symptoms of urinary infection, but does have positive nitrites and 20-30 WBCs. * Urine culture sent in the emergency department * Blood cultures sent Acute renal injury versus chronic renal insufficiency * Estimated GFR 45, creatinine of 1.2. * Likely acute on chronic renal insufficiency secondary to intravascular depletion from her congestive heart failure. Tobaccoism * Patient states that occasionally she still has a cigarette. Otherwise she has stopped smoking. Plan * Admit to ICU on BiPAP * Monitor ABG as needed * Continue Rocephin * Follow blood cultures and urine culture * Increase Lasix to 40 mg IV twice daily * Echocardiogram in the morning * Solu-Medrol 125 mg x 1 then 40 mg every 6 hours starting the morning * DuoNeb every 6 hours * Albuterol nebulizer every 2 hours as needed * Morphine 2 mg IV every 2 hours as needed for pelvic pain. * Start physical therapy in 1 to 2 days. Improve oxygenation prior to starting physical therapy. * Continue BiPAP and titrate per ABGs. * Repeat labs in the morning and ABG * VTE prophylaxis with Lovenox * CODE STATUS: Full code - Mortality Measure Prognosis:: Good
[2020-08-07] MEDS: Morphine 2 MG/ML SYRINGE IVPUSH PRN (23:53)
[2020-08-08] MEDS: Albuterol/Ipratropium 3.0-0.5 MG/3 ML Neb Soln NEB SCH ×4 (02:24→20:45)
[2020-08-08] MEDS: Morphine 2 MG/ML SYRINGE IVPUSH PRN ×4 (03:47→20:00)
[2020-08-08] MEDS: Furosemide 20 MG/2 ML VIAL IVPUSH SCH ×2 (06:36→13:02)
[2020-08-08] MEDS: methylPREDNISolone Sodium Succinate 40 MG/1 ML SDV IVPUSH SCH ×3 (07:54→19:59)
[2020-08-08] MEDS: Enoxaparin 40 MG/0.4 ML Syringe SUBCUT SCH (08:03)
--- NOTE | 2020-08-08 10:38 | CR ---
Chest: 2 views of the chest were obtained. Comparison: No prior chest imaging is available. Heart is slightly enlarged. Upper mediastinum is normal. Emphysematous change is seen. Mild increased lung markings are seen within the right lung base either due to acute bronchitis or worsening of emphysema. Bone window settings show nothing acute. Impression: 1. Emphysematous change. 2. Increased lung markings either due to focal bronchitis or worsening of patient's emphysema. Diagnostic code #3 I agree with preliminary report from [facility], finalized on 08/07/20, 11:09 PM Central Daylight Time
--- NOTE | 2020-08-08 10:43 | CT ---
Head CT Technique: Multiple axial sections through the brain were obtained. Intravenous contrast was not utilized. Comparison: No prior intracranial imaging is available. Findings: Ventricles along with basal cisterns and sulci over convexities are within normal limits for the patient's age. No abnormal parenchymal densities are seen. No evidence of intracranial hemorrhage. No midline shift or mass-effect is seen. Bone window settings were reviewed. Visualized paranasal sinuses and mastoid sinuses show nothing acute. No acute calvarial finding is appreciated. Impression: 1. Nothing acute is appreciated on noncontrast CT study of the brain. 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
--- NOTE | 2020-08-08 10:47 | CR ---
Lumbar spine: AP and lateral views of the lumbar spine were obtained. Comparison: No prior lumbar spine imaging is available. Compression deformity is seen of L2 which shows evidence of prior vertebroplasty. Small amount of vertebroplasty cement is seen within the L2-3 intervertebral disc. Mild compression deformity is noted within L1. Mild compression deformity also noted within L3. Other vertebral body heights are maintained. Minimal disc space narrowing is noted posteriorly at L3-4. Vascular calcification is noted. Bony structures are osteopenic. Impression: 1. Previous compression deformity with vertebroplasty within L2. 2. Mild anterior wedging of L1 and L3 which are nonspecific regarding age. 3. Mild degenerative change and other incidental findings as noted above. Diagnostic code #3 I agree with preliminary report from [facility], finalized on 08/07/20, 11:11 PM RECORD CHANGER
--- NOTE | 2020-08-08 10:47 | CR ---
Sacrum and coccyx: 3 views of the sacrum and coccyx were obtained. Comparison: No prior study. Slight lucency is seen within the lower sacrum. Bony structures are osteopenic. Bowel gas pattern appears within normal limits. Vascular calcification is seen. Impression: 1. Lucency within the distal sacrum. This may represent a fracture if patient is symptomatic to this region. 2. Other findings believed to be incidental. Diagnostic code #3 I agree with preliminary report from [facility], finalized on 08/07/20, 11:07 PM Central Daylight Time
--- NOTE | 2020-08-08 14:14 | PCM.PN ---
- General Info Date of Service: 08/08/20 Admission Dx/Problem (Free Text): Admission Diagnosis/Problem Admission Diagnosis/Problem Hypercapnia with mixed acid-base disorder Subjective Update: Patient states she is feeling better. She continues to be tired but does not have significant shortness of breath. Patient did have an episode of hypoxemia in which the oxygen saturation on the noninvasive monitor was reading in the mid 90s, but the ABG showed O2 saturation of 75% with a PO2 of 46%. She states that her appetite still is good and she is hungry. Functional Status: Reports: Pain Controlled - Review of Systems General: Reports: Fatigue HEENT: Reports: No Symptoms Pulmonary: Reports: Shortness of Breath Cardiovascular: Reports: No Symptoms Gastrointestinal: Reports: No Symptoms - Patient Data Vitals - Most Recent: Last Vital Signs Temp 98.8 F 08/08/20 12:00 Pulse 84 08/08/20 12:00 Resp 16 08/08/20 12:00 BP 117/53 L 08/08/20 12:00 Pulse Ox 94 L 08/08/20 12:00 Weight - Most Recent: 163 lb 9.6 oz I&O - Last 24 Hours: Intake & Output 08/07/20 08/08/20 08/08/20 22:59 06:59 14:59 Intake Total 580 100 Output Total 1525 Balance -945 100 Lab Results Last 24 Hours: Laboratory Results - last 24 hr 08/07/20 08/07/20 08/07/20 Range/Units 20:25 20:25 20:25 WBC 12.16 H (3.98-10.04) K/mm3 RBC 5.04 (3.98-5.22) M/mm3 Hgb 12.1 (11.2-15.7) gm/dl Hct 45.1 H (34.1-44.9) % MCV 89.5 (79.4-94.8) fl MCH 24.0 L (25.6-32.2) pg MCHC 26.8 L (32.2-35.5) g/dl RDW Std Deviation 69.9 H (36.4-46.3) fL Plt Count 216 (182-369) K/mm3 MPV 10.3 (9.4-12.3) fl Neut % (Auto) 82.3 H (34.0-71.1) % Lymph % (Auto) 6.5 L (19.3-51.7) % [place] % (Auto) 9.3 (4.7-12.5) % Eos % (Auto) 1.3 (0.7-5.8) Baso % (Auto) 0.2 (0.1-1.2) % Neut # (Auto) 10.01 H (1.56-6.13) K/mm3 Lymph # (Auto) 0.79 L (1.18-3.74) K/mm3 [place] # (Auto) 1.13 H (0.24-0.36) K/mm3 Eos # (Auto) 0.16 (0.04-0.36) K/mm3 Baso # (Auto) 0.02 (0.01-0.08) K/mm3 Manual Slide Review Abnormal smear Puncture Site ABG pH (7.35-7.45) ABG pCO2 (35.0-45.0) mmHg ABG pO2 (80.0-100.0) mmHg ABG HCO3 (22.0-26.0) meq/L ABG O2 Saturation (96.0-97.0) % ABG Base Excess (-2-2.0) Nail Test A-a Gradient mmHg O2 Delivery Device Oxygen Flow Rate FiO2 (21.00-100.00) % Pressure Support cmH2O Blood Gas Comments Sodium 137 (136-145) mEq/L Potassium 4.0 (3.5-5.1) mEq/L Chloride 96 L (98-107) mEq/L Carbon Dioxide 39 H (21-32) mEq/L Anion Gap 6.0 (5-15) BUN 19 H (7-18) mg/dL Creatinine 1.2 H (0.55-1.02) mg/dL Est Cr Clr Drug Dosing TNP Estimated GFR (MDRD) 45 (>60) mL/min BUN/Creatinine Ratio 15.8 (14-18) Glucose 143 H (80-115) mg/dL Lactic Acid (0.4-2.0) mmol/L Calcium 8.8 (8.5-10.1) mg/dL Phosphorus (2.6-4.7) mg/dL Magnesium (1.8-2.4) mg/dl Total Bilirubin 1.5 H (0.2-1.0) mg/dL AST 12 L (15-37) U/L ALT 11 L (14-59) U/L Alkaline Phosphatase 78 (46-116) U/L Troponin I 0.034 (0.00-0.056) ng/mL C-Reactive Protein 1.0 (<1.0) mg/dL NT-Pro-B Natriuret Pep 07924 H (0-125) pg/mL Total Protein 7.2 (6.4-8.2) g/dl Albumin 3.5 (3.4-5.0) g/dl Globulin 3.7 gm/dL Albumin/Globulin Ratio 1.0 (1-2) Urine Color (Yellow) Urine Appearance (Clear) Urine pH (5.0-8.0) Ur Specific [place] (1.005-1.030) Urine Protein (Negative) Urine Glucose (UA) (Negative) Urine Ketones (Negative) Urine Occult Blood (Negative) Urine Nitrite (Negative) Urine Bilirubin (Negative) Urine Urobilinogen (0.2-1.0) Ur Leukocyte Esterase (Negative) U Hyaline Cast (Auto) (0-5) /lpf Urine RBC (0-5) /hpf Urine WBC (0-5) /hpf Urine WBC Clumps (NOT SEEN) /hpf Ur Squamous Epith Cells (0-5) /hpf Urine Bacteria (FEW) /hpf Urine Mucus (FEW) /hpf SARS-CoV-2 RNA ([facility]IV[facility]NA) (NEGATIVE) 08/07/20 08/07/20 08/07/20 Range/Units 20:37 20:45 21:37 WBC (3.98-10.04) K/mm3 RBC (3.98-5.22) M/mm3 Hgb (11.2-15.7) gm/dl Hct (34.1-44.9) % MCV (79.4-94.8) fl MCH (25.6-32.2) pg MCHC (32.2-35.5) g/dl RDW Std Deviation (36.4-46.3) fL Plt Count (182-369) K/mm3 MPV (9.4-12.3) fl Neut % (Auto) (34.0-71.1) % Lymph % (Auto) (19.3-51.7) % [place] % (Auto) (4.7-12.5) % Eos % (Auto) (0.7-5.8) Baso % (Auto) (0.1-1.2) % Neut # (Auto) (1.56-6.13) K/mm3 Lymph # (Auto) (1.18-3.74) K/mm3 [place] # (Auto) (0.24-0.36) K/mm3 Eos # (Auto) (0.04-0.36) K/mm3 Baso # (Auto) (0.01-0.08) K/mm3 Manual Slide Review Puncture Site Lt radial ABG pH 7.29 L (7.35-7.45) ABG pCO2 84.0 H* (35.0-45.0) mmHg ABG pO2 64.0 L (80.0-100.0) mmHg ABG HCO3 39.4 H (22.0-26.0) meq/L ABG O2 Saturation 86.1 L (96.0-97.0) % ABG Base Excess 10.3 H (-2-2.0) Anil Test A-a Gradient 59 mmHg O2 Delivery Device Nasal cannula Oxygen Flow Rate 3.0 FiO2 32.00 (21.00-100.00) % Pressure Support cmH2O Blood Gas Comments Sodium (136-145) mEq/L Potassium (3.5-5.1) mEq/L Chloride (98-107) mEq/L Carbon Dioxide (21-32) mEq/L Anion Gap (5-15) BUN (7-18) mg/dL Creatinine (0.55-1.02) mg/dL Est Cr Clr Drug Dosing Estimated GFR (MDRD) (>60) mL/min BUN/Creatinine Ratio (14-18) Glucose (80-115) mg/dL Lactic Acid (0.4-2.0) mmol/L Calcium (8.5-10.1) mg/dL Phosphorus (2.6-4.7) mg/dL Magnesium (1.8-2.4) mg/dl Total Bilirubin (0.2-1.0) mg/dL AST (15-37) U/L ALT (14-59) U/L Alkaline Phosphatase (46-116) U/L Troponin I (0.00-0.056) ng/mL C-Reactive Protein (<1.0) mg/dL NT-Pro-B Natriuret Pep (0-125) pg/mL Total Protein (6.4-8.2) g/dl Albumin (3.4-5.0) g/dl Globulin gm/dL Albumin/Globulin Ratio (1-2) Urine Color Brown H (Yellow) Urine Appearance Turbid H (Clear) Urine pH 6.0 (5.0-8.0) Ur Specific [place] > or = 1.030 (1.005-1.030) Urine Protein 3+ H (Negative) Urine Glucose (UA) Negative (Negative) Urine Ketones Trace H (Negative) Urine Occult Blood 3+ H (Negative) Urine Nitrite Positive H (Negative) Urine Bilirubin 2+ H (Negative) Urine Urobilinogen >=8.0 H (0.2-1.0) Ur Leukocyte Esterase Trace H (Negative) U Hyaline Cast (Auto) 0-5 (0-5) /lpf Urine RBC Too numerous to cnt H (0-5) /hpf Urine WBC 20-30 H (0-5) /hpf Urine WBC Clumps Many (NOT SEEN) /hpf Ur Squamous Epith Cells 0-5 (0-5) /hpf Urine Bacteria Many H (FEW) /hpf Urine Mucus Moderate H (FEW) /hpf SARS-CoV-2 RNA ([facility]NA) Negative (NEGATIVE) 08/07/20 08/07/20 08/08/20 Range/Units 22:32 23:19 04:57 WBC 10.83 H (3.98-10.04) K/mm3 RBC 4.75 (3.98-5.22) M/mm3 Hgb 11.4 (11.2-15.7) gm/dl Hct 42.5 (34.1-44.9) % MCV 89.5 (79.4-94.8) fl MCH 24.0 L (25.6-32.2) pg MCHC 26.8 L (32.2-35.5) g/dl RDW Std Deviation 69.2 H (36.4-46.3) fL Plt Count 165 L (182-369) K/mm3 MPV 10.6 (9.4-12.3) fl Neut % (Auto) 94.2 H (34.0-71.1) % Lymph % (Auto) 2.0 L (19.3-51.7) % [place] % (Auto) 3.3 L (4.7-12.5) % Eos % (Auto) 0 L (0.7-5.8) Baso % (Auto) 0.1 (0.1-1.2) % Neut # (Auto) 10.20 H (1.56-6.13) K/mm3 Lymph # (Auto) 0.22 L (1.18-3.74) K/mm3 [place] # (Auto) 0.36 (0.24-0.36) K/mm3 Eos # (Auto) 0.00 L (0.04-0.36) K/mm3 Baso # (Auto) 0.01 (0.01-0.08) K/mm3 Manual Slide Review Abnormal smear Puncture Site Lt radial ABG pH 7.32 L (7.35-7.45) ABG pCO2 81.2 H* (35.0-45.0) mmHg ABG pO2 62.0 L (80.0-100.0) mmHg ABG HCO3 40.7 H (22.0-26.0) meq/L ABG O2 Saturation 84.3 L (96.0-97.0) % ABG Base Excess 11.9 H (-2-2.0) Anil Test A-a Gradient 135 mmHg O2 Delivery Device Bipap Oxygen Flow Rate 5.0 FiO2 42.00 (21.00-100.00) % Pressure Support cmH2O Blood Gas Comments Bipap 12/6 Sodium (136-145) mEq/L Potassium (3.5-5.1) mEq/L Chloride (98-107) mEq/L Carbon Dioxide (21-32) mEq/L Anion Gap (5-15) BUN (7-18) mg/dL Creatinine (0.55-1.02) mg/dL Est Cr Clr Drug Dosing Estimated GFR (MDRD) (>60) mL/min BUN/Creatinine Ratio (14-18) Glucose (80-115) mg/dL Lactic Acid 1.4 (0.4-2.0) mmol/L Calcium (8.5-10.1) mg/dL Phosphorus (2.6-4.7) mg/dL Magnesium (1.8-2.4) mg/dl Total Bilirubin (0.2-1.0) mg/dL AST (15-37) U/L ALT (14-59) U/L Alkaline Phosphatase (46-116) U/L Troponin I (0.00-0.056) ng/mL C-Reactive Protein (<1.0) mg/dL NT-Pro-B Natriuret Pep (0-125) pg/mL Total Protein (6.4-8.2) g/dl Albumin (3.4-5.0) g/dl Globulin gm/dL Albumin/Globulin Ratio (1-2) Urine Color (Yellow) Urine Appearance (Clear) Urine pH (5.0-8.0) Ur Specific [place] (1.005-1.030) Urine Protein (Negative) Urine Glucose (UA) (Negative) Urine Ketones (Negative) Urine Occult Blood (Negative) Urine Nitrite (Negative) Urine Bilirubin (Negative) Urine Urobilinogen (0.2-1.0) Ur Leukocyte Esterase (Negative) U Hyaline Cast (Auto) (0-5) /lpf Urine RBC (0-5) /hpf Urine WBC (0-5) /hpf Urine WBC Clumps (NOT SEEN) /hpf Ur Squamous Epith Cells (0-5) /hpf Urine Bacteria (FEW) /hpf Urine Mucus (FEW) /hpf SARS-CoV-2 RNA ([facility]) (NEGATIVE) 08/08/20 08/08/20 Range/Units 04:57 06:14 WBC (3.98-10.04) K/mm3 RBC (3.98-5.22) M/mm3 Hgb (11.2-15.7) gm/dl Hct (34.1-44.9) % MCV (79.4-94.8) fl MCH (25.6-32.2) pg MCHC (32.2-35.5) g/dl RDW Std Deviation (36.4-46.3) fL Plt Count (182-369) K/mm3 MPV (9.4-12.3) fl Neut % (Auto) (34.0-71.1) % Lymph % (Auto) (19.3-51.7) % [place] % (Auto) (4.7-12.5) % Eos % (Auto) (0.7-5.8) Baso % (Auto) (0.1-1.2) % Neut # (Auto) (1.56-6.13) K/mm3 Lymph # (Auto) (1.18-3.74) K/mm3 [place] # (Auto) (0.24-0.36) K/mm3 Eos # (Auto) (0.04-0.36) K/mm3 Baso # (Auto) (0.01-0.08) K/mm3 Manual Slide Review Puncture Site Lt radial ABG pH 7.34 L (7.35-7.45) ABG pCO2 81.0 H* (35.0-45.0) mmHg ABG pO2 57.0 L (80.0-100.0) mmHg ABG HCO3 42.1 H (22.0-26.0) meq/L ABG O2 Saturation 81.5 L (96.0-97.0) % ABG Base Excess 13.5 H (-2-2.0) Anil Test Positive A-a Gradient mmHg O2 Delivery Device Bipap Oxygen Flow Rate 6.0 FiO2 (21.00-100.00) % Pressure Support 6.0 cmH2O Blood Gas Comments 6 Sodium 140 (136-145) mEq/L Potassium 3.6 (3.5-5.1) mEq/L Chloride 95 L (98-107) mEq/L Carbon Dioxide 40 H (21-32) mEq/L Anion Gap 8.6 (5-15) BUN 17 (7-18) mg/dL Creatinine 1.0 (0.55-1.02) mg/dL Est Cr Clr Drug Dosing 44.36 Estimated GFR (MDRD) 56 (>60) mL/min BUN/Creatinine Ratio 17.0 (14-18) Glucose 113 (80-115) mg/dL Lactic Acid (0.4-2.0) mmol/L Calcium 8.7 (8.5-10.1) mg/dL Phosphorus 3.6 (2.6-4.7) mg/dL Magnesium 1.7 L (1.8-2.4) mg/dl Total Bilirubin 1.3 H (0.2-1.0) mg/dL AST 13 L (15-37) U/L ALT 10 L (14-59) U/L Alkaline Phosphatase 66 (46-116) U/L Troponin I (0.00-0.056) ng/mL C-Reactive Protein (<1.0) mg/dL NT-Pro-B Natriuret Pep (0-125) pg/mL Total Protein 6.9 (6.4-8.2) g/dl Albumin 3.3 L (3.4-5.0) g/dl Globulin 3.6 gm/dL Albumin/Globulin Ratio 0.9 L (1-2) Urine Color (Yellow) Urine Appearance (Clear) Urine pH (5.0-8.0) Ur Specific [place] (1.005-1.030) Urine Protein (Negative) Urine Glucose (UA) (Negative) Urine Ketones (Negative) Urine Occult Blood (Negative) Urine Nitrite (Negative) Urine Bilirubin (Negative) Urine Urobilinogen (0.2-1.0) Ur Leukocyte Esterase (Negative) U Hyaline Cast (Auto) (0-5) /lpf Urine RBC (0-5) /hpf Urine WBC (0-5) /hpf Urine WBC Clumps (NOT SEEN) /hpf Ur Squamous Epith Cells (0-5) /hpf Urine Bacteria (FEW) /hpf Urine Mucus (FEW) /hpf SARS-CoV-2 RNA ([facility]NA) (NEGATIVE) [place] Results Last 24 Hours: Microbiology 08/07/20 21:37 Urine Culture - Preliminary Urine, [place] ([place]) Gram Negative Rods Med Orders - Current: Current Medications Albuterol (Proventil Neb Soln) 2.5 mg NEB Q2H PRN PRN Reason: Shortness Of Breath/wheezing Albuterol/Ipratropium (Duoneb 3.0-0.5 Mg/3 Ml) 3 ml NEB Q6HRRT [facility] Last Admin: 08/08/20 08:22 Dose: 3 ml Documented by: Enoxaparin Sodium (Lovenox) 40 mg SUBCUT DAILY [facility] Last Admin: 08/08/20 08:03 Dose: 40 mg Documented by: Furosemide (Lasix) 40 mg IVPUSH BIDDIURETIC [facility] Last Admin: 08/08/20 13:02 Dose: 40 mg Documented by: Ceftriaxone Sodium 1 gm/ (Sodium Chloride) 100 mls @ 200 mls/hr IV Q24H [facility] Methylprednisolone Sodium Succinate (Solu-Medrol) 40 mg IVPUSH Q6H [facility] Last Admin: 08/08/20 13:02 Dose: 40 mg Documented by: Morphine Sulfate (Morphine) 2 mg IVPUSH Q2H PRN PRN Reason: Pain (severe 7-10) Stop: 08/08/20 23:29 Last Admin: 08/08/20 12:59 Dose: 2 mg Documented by: Ondansetron HCl (Zofran) 4 mg IV Q4H PRN PRN Reason: Nausea/Vomiting Sodium Chloride (Saline Flush) 10 ml FLUSH ASDIRECTED PRN PRN Reason: Keep Vein Open Last Admin: 08/07/20 20:35 Dose: 10 ml Documented by: Discontinued Medications Furosemide (Lasix) 40 mg IV ONETIME ONE Stop: 08/07/20 21:51 Last Admin: 08/07/20 21:56 Dose: 40 mg Documented by: Ceftriaxone Sodium 2 gm/ (Sodium Chloride) 100 mls @ 200 mls/hr IV ONETIME ONE Stop: 08/07/20 22:28 Last Admin: 08/07/20 22:39 Dose: 200 mls/hr Documented by: Influenza Virus Vaccine (Pharmacy To Dose - Influenza Vaccine) 1 each IM ONETIME ONE Stop: 08/08/20 00:15 Influenza Virus Vaccine (Fluzone High-Dose Quad ) 240 mcg IM .ONCE ONE Stop: 08/08/20 10:01 Methylprednisolone Sodium Succinate (Solu-Medrol) 125 mg IVPUSH ONETIME ONE Stop: 08/07/20 23:32 Last Admin: 08/07/20 23:54 Dose: 125 mg Documented by: Morphine Sulfate (Morphine) 2 mg IVPUSH ONETIME ONE Stop: 08/07/20 21:55 Last Admin: 08/07/20 22:02 Dose: 2 mg Documented by: - Exam Quality Assessment: Supplemental Oxygen, Urine Catheter General: Alert, Oriented HEENT: Pupils Equal, Mucous Membr. Moist/Hilo Neck: Supple Lungs: Decreased Breath Sounds (Throughout). No: Normal Respiratory Effort (Mildly increased respiratory effort) Cardiovascular: Regular Rate, Regular Rhythm GI/Abdominal Exam: Normal Bowel Sounds, Soft, Non-Tender, No Distention Extremities: Normal Inspection, Pedal Edema (1-2+) Skin: Warm, Dry, Intact Psy/Mental Status: Alert, Normal Affect, Normal Mood Sepsis Event Note - Evaluation Sepsis Screening Result: No Definite Risk - Focused Exam Vital Signs: Vital Signs Temp Pulse Resp BP Pulse Ox Pulse Ox Pulse Ox 08/08/20 12:00 98.8 F 84 16 117/53 L 94 L 08/08/20 10:00 90 L 08/08/20 08:23 92 L 08/08/20 08:00 99.2 F 83 14 123/62 92 L 08/08/20 04:00 98 F 78 20 124/54 L 96 08/08/20 02:28 92 L - Problem List & Annotations (1) COPD exacerbation SNOMED Code(s): 830635785 Code(s): J44.1 - CHRONIC OBSTRUCTIVE PULMONARY DISEASE W (ACUTE) EXACERBATION Status: Acute Current Visit: Yes (2) Congestive heart failure SNOMED Code(s): 29846327 Code(s): I50.9 - HEART FAILURE, UNSPECIFIED Status: Acute Current Visit: Yes Qualifiers: Heart failure type: unspecified Heart failure chronicity: acute on chronic Qualified Code(s): I50.9 - Heart failure, unspecified (3) Hypercapnic acidosis SNOMED Code(s): 88762297 Code(s): E87.2 - ACIDOSIS Status: Acute Current Visit: Yes (4) Sacral fracture SNOMED Code(s): 303284549 Code(s): S32.10XA - UNSP FRACTURE OF SACRUM, INIT ENCNTR FOR CLOSED FRACTURE Status: Acute Current Visit: Yes Qualifiers: Encounter type: initial encounter Zone of sacrum fracture: unspecified portion of sacrum Fracture type: closed Qualified Code(s): S32.10XA - Unspecified fracture of sacrum, initial encounter for closed fracture (5) Urinary tract infection SNOMED Code(s): 71717719 Code(s): N39.0 - URINARY TRACT INFECTION, SITE NOT SPECIFIED Status: Acute Current Visit: Yes Qualifiers: Urinary tract infection type: site unspecified Hematuria presence: with hematuria Qualified Code(s): N39.0 - Urinary tract infection, site not specified; R31.9 - Hematuria, unspecified - Problem List Review Problem List Initiated/Reviewed/Updated: Yes - My Orders Last 24 Hours: My Active Orders 08/07/20 23:27 Oxygen Therapy [RC] PRN Up With Assistance [RC] ASDIRECTED VTE/DVT Education [RC] Vital Signs [RC] Q4HR Albuterol [Proventil Neb Soln] 2.5 mg NEB Q2H PRN Morphine 2 mg IVPUSH Q2H PRN Ondansetron [Zofran] 4 mg IV Q4H PRN Resuscitation Status Routine 08/07/20 23:30 RT Aerosol Therapy [RC] ASDIRECTED 08/08/20 00:14 Influenza Vaccine Charge [RC] .DISCHARGE 08/08/20 03:00 Albuterol/Ipratropium [DuoNeb 3.0-0.5 MG/3 ML] 3 ml NEB Q6HRRT 08/08/20 06:00 Furosemide [Lasix] 40 mg IVPUSH BIDDIURETIC 08/08/20 08:00 methylPREDNISolone Sod Succ [Solu-MEDROL] 40 mg IVPUSH Q6H 08/08/20 09:00 Enoxaparin [Lovenox] 40 mg SUBCUT DAILY 08/08/20 Lunch Regular Diet [DIET] 08/08/20 13:48 ABG [BLOOD GAS ARTERIAL] [BG] Urgent 08/08/20 22:00 cefTRIAXone [Rocephin] 1 gm Sodium Chloride 0.9% [Normal Saline] 100 ml IV Q24H 08/09/20 05:11 C-REACTIVE PROTEIN [CHEM] AM CBC WITH AUTO DIFF [HEME] AM CMP [COMPREHENSIVE METABOLIC PN,CMP] [CHEM] AM MAGNESIUM [CHEM] AM - Plan Plan:: Assessment 65-year-old female with history of coronary artery disease and congestive heart failure presents to the emergency department with increasing shortness of breath and dyspnea on exertion for 2 days. Exacerbation of CHF and COPD with severe hypercapnia * Patient increased her home O2 from 2 L/min to 3 L/min likely worsening her hypercapnia. * Significant increase in her respiratory rate. * White count 12,000 with left shift. * Chest x-ray with no significant infiltrate or edema, but significant for emphysema with bronchitis. * proBNP of 10,237 with known history of congestive heart failure. * Initial PCO2 above 80 with only slight improvement after starting BiPAP. * Initial pH low at 7.29 * No significant mental status changes. * Started on Rocephin in the emergency department and given Lasix IV * She is on Advair at home. Nondisplaced sacral fracture * Morphine 2 mg IV in the emergency department with good results. UTI * Patient denies any symptoms of urinary infection, but does have positive nitrites and 20-30 WBCs. * Urine culture sent in the emergency department * Blood cultures sent Acute renal injury versus chronic renal insufficiency * Estimated GFR 45, creatinine of 1.2. * Likely acute on chronic renal insufficiency secondary to intravascular depletion from her congestive heart failure. Tobaccoism * Patient states that occasionally she still has a cigarette. Otherwise she has stopped smoking. Plan * Admit to ICU on BiPAP * Monitor ABG as needed * Continue Rocephin * Follow blood cultures and urine culture * Increase Lasix to 40 mg IV twice daily * Echocardiogram in the morning * Solu-Medrol 125 mg x 1 then 40 mg every 6 hours starting the morning * DuoNeb every 6 hours * Albuterol nebulizer every 2 hours as needed * Morphine 2 mg IV every 2 hours as needed for pelvic pain. * Start physical therapy in 1 to 2 days. Improve oxygenation prior to starting physical therapy. * Continue BiPAP and titrate per ABGs. * Repeat labs in the morning and ABG * VTE prophylaxis with Lovenox * CODE STATUS: Full code 08/08/2020 55-year-old female with history of COPD and CHF with no significant change overnight. Patient continues on IV Lasix, Solu-Medrol, DuoNeb, and BiPAP. There was some issue with oxygen saturation inappropriately reading high and repeat blood gases have shown no significant changes except for a increase in her bicarb correcting the acidosis. PCO2 on repeat blood gas is still elevated at 82. Echocardiogram has been performed and pending. Renal function has also improved. Creatinine of 1.0 with estimated GFR greater than 60. Continue on Rocephin and BiPAP overnight. Recheck ABG as needed.
[2020-08-08] MEDS: cefTRIAXone 1 GM in Sodium Chloride 0.9% 100 ML IV SCH (22:16)
[2020-08-09] MEDS: Morphine 2 MG/ML SYRINGE IVPUSH PRN ×2 (01:02→04:31)
[2020-08-09] MEDS: Albuterol/Ipratropium 3.0-0.5 MG/3 ML Neb Soln NEB SCH ×3 (02:18→20:29)
[2020-08-09] MEDS: methylPREDNISolone Sodium Succinate 40 MG/1 ML SDV IVPUSH SCH ×4 (02:23→19:53)
[2020-08-09] MEDS: Furosemide 20 MG/2 ML VIAL IVPUSH SCH (06:16)
[2020-08-09] MEDS ORDERED: Potassium Chloride 20 MEQ Tab.ER PO ONE (08:00)
[2020-08-09] MEDS ORDERED: Magnesium Sulfate/Water 4 GM in Premix Bag 1 BAG IV ONE (08:00)
--- NOTE | 2020-08-09 08:04 | PCM.PN ---
- General Info Date of Service: 08/09/20 Admission Dx/Problem (Free Text): Admission Diagnosis/Problem Admission Diagnosis/Problem Hypercapnia with mixed acid-base disorder Subjective Update: Patient states that she is feeling much better. Oxygen saturations have been stable and her PCO2 has improved overnight. Patient has tolerated BiPAP well and appetite is good. Functional Status: Reports: Pain Controlled - Review of Systems General: Reports: No Symptoms HEENT: Reports: No Symptoms Pulmonary: Reports: Shortness of Breath Cardiovascular: Reports: No Symptoms Gastrointestinal: Reports: No Symptoms Musculoskeletal: Reports: No Symptoms Skin: Reports: No Symptoms Neurological: Reports: No Symptoms - Patient Data Vitals - Most Recent: Last Vital Signs Temp 96.6 F L 08/09/20 07:40 Pulse 72 08/09/20 07:40 Resp 18 08/09/20 07:40 BP 137/75 08/09/20 07:40 Pulse Ox 93 L 08/09/20 07:40 Weight - Most Recent: 171 lb 14.4 oz I&O - Last 24 Hours: Intake & Output 08/08/20 08/09/20 08/09/20 22:59 06:59 14:59 Intake Total 1040 400 Output Total 850 350 200 Balance 190 50 -200 Lab Results Last 24 Hours: Laboratory Results - last 24 hr 08/08/20 08/08/20 08/08/20 Range/Units 14:02 15:43 16:30 WBC (3.98-10.04) K/mm3 RBC (3.98-5.22) M/mm3 Hgb (11.2-15.7) gm/dl Hct (34.1-44.9) % MCV (79.4-94.8) fl MCH (25.6-32.2) pg MCHC (32.2-35.5) g/dl RDW Std Deviation (36.4-46.3) fL Plt Count (182-369) K/mm3 MPV (9.4-12.3) fl Neut % (Auto) (34.0-71.1) % Lymph % (Auto) (19.3-51.7) % Stokes % (Auto) (4.7-12.5) % Eos % (Auto) (0.7-5.8) Baso % (Auto) (0.1-1.2) % Neut # (Auto) (1.56-6.13) K/mm3 Lymph # (Auto) (1.18-3.74) K/mm3 Stokes # (Auto) (0.24-0.36) K/mm3 Eos # (Auto) (0.04-0.36) K/mm3 Baso # (Auto) (0.01-0.08) K/mm3 Manual Slide Review Puncture Site Rt radial Rt radial ABG pH 7.40 7.39 (7.35-7.45) ABG pCO2 76.6 H* 82.1 H* (35.0-45.0) mmHg ABG pO2 46.0 L 70.0 L (80.0-100.0) mmHg ABG HCO3 45.9 H 48.0 H (22.0-26.0) meq/L ABG O2 Saturation 75.0 L 92.7 L (96.0-97.0) % ABG Base Excess 17.5 H 19.3 H (-2-2.0) Anil Test Positive Positive A-a Gradient 115 312 mmHg O2 Delivery Device Bipap Bipap Oxygen Flow Rate 4.0 12.0 FiO2 36.00 68.00 (21.00-100.00) % Sodium 139 (136-145) mEq/L Potassium 3.7 (3.5-5.1) mEq/L Chloride 94 L (98-107) mEq/L Carbon Dioxide 44 H* (21-32) mEq/L Anion Gap 4.7 L (5-15) BUN 17 (7-18) mg/dL Creatinine 1.2 H (0.55-1.02) mg/dL Est Cr Clr Drug Dosing 36.97 mL/min Estimated GFR (MDRD) 45 (>60) mL/min BUN/Creatinine Ratio 14.2 (14-18) Glucose 131 H (80-115) mg/dL Calcium 8.9 (8.5-10.1) mg/dL Magnesium (1.8-2.4) mg/dl Total Bilirubin (0.2-1.0) mg/dL AST (15-37) U/L ALT (14-59) U/L Alkaline Phosphatase (46-116) U/L C-Reactive Protein (<1.0) mg/dL NT-Pro-B Natriuret Pep (0-125) pg/mL Total Protein (6.4-8.2) g/dl Albumin (3.4-5.0) g/dl Globulin gm/dL Albumin/Globulin Ratio (1-2) 08/08/20 08/09/20 08/09/20 Range/Units 16:30 04:14 04:14 WBC 6.66 (3.98-10.04) K/mm3 RBC 4.52 (3.98-5.22) M/mm3 Hgb 10.4 L (11.2-15.7) gm/dl Hct 39.8 (34.1-44.9) % MCV 88.1 (79.4-94.8) fl MCH 23.0 L (25.6-32.2) pg MCHC 26.1 L (32.2-35.5) g/dl RDW Std Deviation 67.0 H (36.4-46.3) fL Plt Count 165 L (182-369) K/mm3 MPV 11.0 (9.4-12.3) fl Neut % (Auto) 92.7 H (34.0-71.1) % Lymph % (Auto) 3.0 L (19.3-51.7) % Stokes % (Auto) 4.1 L (4.7-12.5) % Eos % (Auto) 0 L (0.7-5.8) Baso % (Auto) 0.0 L (0.1-1.2) % Neut # (Auto) 6.18 H (1.56-6.13) K/mm3 Lymph # (Auto) 0.20 L (1.18-3.74) K/mm3 Stokes # (Auto) 0.27 (0.24-0.36) K/mm3 Eos # (Auto) 0.00 L (0.04-0.36) K/mm3 Baso # (Auto) 0.00 L (0.01-0.08) K/mm3 Manual Slide Review Abnormal smear Puncture Site ABG pH (7.35-7.45) ABG pCO2 (35.0-45.0) mmHg ABG pO2 (80.0-100.0) mmHg ABG HCO3 (22.0-26.0) meq/L ABG O2 Saturation (96.0-97.0) % ABG Base Excess (-2-2.0) Anil Test A-a Gradient mmHg O2 Delivery Device Oxygen Flow Rate FiO2 (21.00-100.00) % Sodium 139 (136-145) mEq/L Potassium 3.1 L (3.5-5.1) mEq/L Chloride 94 L (98-107) mEq/L Carbon Dioxide 42 H* (21-32) mEq/L Anion Gap 6.1 (5-15) BUN 20 H (7-18) mg/dL Creatinine 1.2 H (0.55-1.02) mg/dL Est Cr Clr Drug Dosing 36.97 mL/min Estimated GFR (MDRD) 45 (>60) mL/min BUN/Creatinine Ratio 16.7 (14-18) Glucose 144 H (80-115) mg/dL Calcium 8.4 L (8.5-10.1) mg/dL Magnesium 1.5 L (1.8-2.4) mg/dl Total Bilirubin 0.8 (0.2-1.0) mg/dL AST 7 L (15-37) U/L ALT 7 L (14-59) U/L Alkaline Phosphatase 59 (46-116) U/L C-Reactive Protein 1.1 H* (<1.0) mg/dL NT-Pro-B Natriuret Pep 50614 H (0-125) pg/mL Total Protein 6.3 L (6.4-8.2) g/dl Albumin 3.0 L (3.4-5.0) g/dl Globulin 3.3 gm/dL Albumin/Globulin Ratio 0.9 L (1-2) 08/09/20 Range/Units 04:14 WBC (3.98-10.04) K/mm3 RBC (3.98-5.22) M/mm3 Hgb (11.2-15.7) gm/dl Hct (34.1-44.9) % MCV (79.4-94.8) fl MCH (25.6-32.2) pg MCHC (32.2-35.5) g/dl RDW Std Deviation (36.4-46.3) fL Plt Count (182-369) K/mm3 MPV (9.4-12.3) fl Neut % (Auto) (34.0-71.1) % Lymph % (Auto) (19.3-51.7) % Stokes % (Auto) (4.7-12.5) % Eos % (Auto) (0.7-5.8) Baso % (Auto) (0.1-1.2) % Neut # (Auto) (1.56-6.13) K/mm3 Lymph # (Auto) (1.18-3.74) K/mm3 Stokes # (Auto) (0.24-0.36) K/mm3 Eos # (Auto) (0.04-0.36) K/mm3 Baso # (Auto) (0.01-0.08) K/mm3 Manual Slide Review Puncture Site ABG pH (7.35-7.45) ABG pCO2 (35.0-45.0) mmHg ABG pO2 (80.0-100.0) mmHg ABG HCO3 (22.0-26.0) meq/L ABG O2 Saturation (96.0-97.0) % ABG Base Excess (-2-2.0) Anil Test A-a Gradient mmHg O2 Delivery Device Oxygen Flow Rate FiO2 (21.00-100.00) % Sodium (136-145) mEq/L Potassium (3.5-5.1) mEq/L Chloride (98-107) mEq/L Carbon Dioxide (21-32) mEq/L Anion Gap (5-15) BUN (7-18) mg/dL Creatinine (0.55-1.02) mg/dL Est Cr Clr Drug Dosing mL/min Estimated GFR (MDRD) (>60) mL/min BUN/Creatinine Ratio (14-18) Glucose (80-115) mg/dL Calcium (8.5-10.1) mg/dL Magnesium (1.8-2.4) mg/dl Total Bilirubin (0.2-1.0) mg/dL AST (15-37) U/L ALT (14-59) U/L Alkaline Phosphatase (46-116) U/L C-Reactive Protein (<1.0) mg/dL NT-Pro-B Natriuret Pep 12495 H (0-125) pg/mL Total Protein (6.4-8.2) g/dl Albumin (3.4-5.0) g/dl Globulin gm/dL Albumin/Globulin Ratio (1-2) [place] Results Last 24 Hours: Microbiology 08/07/20 22:17 Aerobic Blood Culture - Preliminary Blood - Venous - Lab Draw NO GROWTH AFTER 1 DAY Anaerobic Blood Culture - Preliminary NO GROWTH AFTER 1 DAY 08/07/20 22:32 Aerobic Blood Culture - Preliminary Blood - Venous NO GROWTH AFTER 1 DAY Anaerobic Blood Culture - Preliminary NO GROWTH AFTER 1 DAY 08/07/20 21:37 Urine Culture - Preliminary Urine, [place] [facility] ([place]) Gram Negative Rods Med Orders - Current: Current Medications Albuterol (Proventil Neb Soln) 2.5 mg NEB Q2H PRN PRN Reason: Shortness Of Breath/wheezing Albuterol/Ipratropium (Duoneb 3.0-0.5 Mg/3 Ml) [address] [facility] Last Admin: 08/09/20 02:18 Dose: 3 ml Documented by: Enoxaparin Sodium (Lovenox) [address] [facility] Last Admin: 08/08/20 08:03 Dose: 40 mg Documented by: Furosemide (Lasix) [address] [facility] Ceftriaxone Sodium 1 gm/ (Sodium Chloride) 100 mls @ 200 mls/hr IV Q24H [facility] Last Admin: 08/08/20 22:16 Dose: 200 mls/hr Documented by: Magnesium Sulfate 4 gm/ Premix 50 mls @ 12.5 mls/hr IV ONETIME ONE Stop: 08/09/20 11:59 Methylprednisolone Sodium Succinate (Solu-Medrol) [address] [facility] Last Admin: 08/09/20 07:38 Dose: 40 mg Documented by: Morphine Sulfate (Morphine) 2 mg IVPUSH Q2H PRN PRN Reason: Pain Last Admin: 08/09/20 04:31 Dose: 2 mg Documented by: Ondansetron HCl (Zofran) 4 mg IV Q4H PRN PRN Reason: Nausea/Vomiting Potassium Chloride (Klor-Con M20) 40 meq PO ONETIME ONE Stop: 08/09/20 08:01 Sodium Chloride (Saline Flush) 10 ml FLUSH ASDIRECTED PRN PRN Reason: Keep Vein Open Last Admin: 08/07/20 20:35 Dose: 10 ml Documented by: Discontinued Medications Furosemide (Lasix) 40 mg IV ONETIME ONE Stop: 08/07/20 21:51 Last Admin: 08/07/20 21:56 Dose: 40 mg Documented by: Furosemide (Lasix) 40 mg IVPUSH BIDDIURETIC [facility] Last Admin: 08/09/20 06:16 Dose: 40 mg Documented by: Ceftriaxone Sodium 2 gm/ (Sodium Chloride) 100 mls @ 200 mls/hr IV ONETIME ONE Stop: 08/07/20 22:28 Last Admin: 08/07/20 22:39 Dose: 200 mls/hr Documented by: Influenza Virus Vaccine (Pharmacy To Dose - Influenza Vaccine) 1 each IM ONETIME ONE Stop: 08/08/20 00:15 Influenza Virus Vaccine (Fluzone High-Dose Quad ) 240 mcg IM .ONCE ONE Stop: 08/08/20 10:01 Methylprednisolone Sodium Succinate (Solu-Medrol) 125 mg IVPUSH ONETIME ONE Stop: 08/07/20 23:32 Last Admin: 08/07/20 23:54 Dose: 125 mg Documented by: Morphine Sulfate (Morphine) 2 mg IVPUSH ONETIME ONE Stop: 08/07/20 21:55 Last Admin: 08/07/20 22:02 Dose: 2 mg Documented by: Morphine Sulfate (Morphine) 2 mg IVPUSH Q2H PRN PRN Reason: Pain (severe 7-10) Stop: 08/08/20 23:29 Last Admin: 08/08/20 20:00 Dose: 2 mg Documented by: - Exam Quality Assessment: Supplemental Oxygen, Urine Catheter General: Alert, Oriented HEENT: Pupils Equal, Mucous Membr. Moist/[place] Neck: Supple Lungs: Normal Respiratory Effort, Crackles Cardiovascular: Regular Rate, Regular Rhythm GI/Abdominal Exam: Normal Bowel Sounds, Soft, Non-Tender, No Distention, No Abnormal Bruit Extremities: Normal Inspection, Normal Range of Motion, Non-Tender, No Pedal Edema, Normal Capillary Refill Skin: Warm, Dry, Intact Psy/Mental Status: Alert, Normal Affect, Normal Mood Sepsis Event Note - Evaluation Sepsis Screening Result: No Definite Risk - Focused Exam Vital Signs: Vital Signs Temp Pulse Resp BP Pulse Ox Pulse Ox 08/09/20 07:40 96.6 F L 72 18 137/75 93 L 08/09/20 06:29 91 L 08/09/20 04:00 98.4 F 65 18 126/59 L 95 08/09/20 02:18 95 08/09/20 00:00 97.9 F 72 18 127/71 93 L 08/08/20 20:45 90 L - Problem List & Annotations (1) COPD exacerbation SNOMED Code(s): 089692913 Code(s): J44.1 - CHRONIC OBSTRUCTIVE PULMONARY DISEASE W (ACUTE) EXACERBATION Status: Acute Current Visit: Yes (2) Congestive heart failure SNOMED Code(s): 26630249 Code(s): I50.9 - HEART FAILURE, UNSPECIFIED Status: Acute Current Visit: Yes Qualifiers: Heart failure type: unspecified Heart failure chronicity: acute on chronic Qualified Code(s): I50.9 - Heart failure, unspecified (3) Hypercapnic acidosis SNOMED Code(s): 17084675 Code(s): E87.2 - ACIDOSIS Status: Acute Current Visit: Yes (4) Sacral fracture SNOMED Code(s): 837762670 Code(s): S32.10XA - UNSP FRACTURE OF SACRUM, INIT ENCNTR FOR CLOSED FRACTURE Status: Acute Current Visit: Yes Qualifiers: Encounter type: initial encounter Zone of sacrum fracture: unspecified portion of sacrum Fracture type: closed Qualified Code(s): S32.10XA - Unspecified fracture of sacrum, initial encounter for closed fracture (5) Urinary tract infection SNOMED Code(s): 60651404 Code(s): N39.0 - URINARY TRACT INFECTION, SITE NOT SPECIFIED Status: Acute Current Visit: Yes Qualifiers: Urinary tract infection type: site unspecified Hematuria presence: with hematuria Qualified Code(s): N39.0 - Urinary tract infection, site not specified; R31.9 - Hematuria, unspecified - Problem List Review Problem List Initiated/Reviewed/Updated: Yes - My Orders Last 24 Hours: My Active Orders 08/08/20 08:00 methylPREDNISolone Sod Succ [Solu-MEDROL] 40 mg IVPUSH Q6H 08/08/20 09:00 Enoxaparin [Lovenox] 40 mg SUBCUT DAILY 08/08/20 Lunch Regular Diet [DIET] 08/08/20 Dinner Fluid Restriction [DIET] 08/08/20 22:00 cefTRIAXone [Rocephin] 1 gm Sodium Chloride 0.9% [Normal Saline] 100 ml IV Q24H 08/09/20 00:57 Morphine 2 mg IVPUSH Q2H PRN 08/09/20 08:00 Magnesium Sulfate/Water [Magnesium Sulfate in Water Premix] 4 gm Premix Bag 1 bag IV ONETIME Potassium Chloride [Klor-Con M20] 40 meq PO ONETIME ONE 08/09/20 09:00 Spironolactone [Aldactone] 25 mg PO DAILY 08/09/20 14:00 Furosemide [Lasix] 40 mg IVPUSH BIDDIURETIC - Plan Plan:: Assessment 65-year-old female with history of coronary artery disease and congestive heart failure presents to the emergency department with increasing shortness of breath and dyspnea on exertion for 2 days. Exacerbation of CHF and COPD with severe hypercapnia * Patient increased her home O2 from 2 L/min to 3 L/min likely worsening her hypercapnia. * Significant increase in her respiratory rate. * White count 12,000 with left shift. * Chest x-ray with no significant infiltrate or edema, but significant for emphysema with bronchitis. * proBNP of 10,237 with known history of congestive heart failure. * Initial PCO2 above 80 with only slight improvement after starting BiPAP. * Initial pH low at 7.29 * No significant mental status changes. * Started on Rocephin in the emergency department and given Lasix IV * She is on Advair at home. Nondisplaced sacral fracture * Morphine 2 mg IV in the emergency department with good results. UTI * Patient denies any symptoms of urinary infection, but does have positive nitrites and 20-30 WBCs. * Urine culture sent in the emergency department * Blood cultures sent Acute renal injury versus chronic renal insufficiency * Estimated GFR 45, creatinine of 1.2. * Likely acute on chronic renal insufficiency secondary to intravascular depl etion from her congestive heart failure. Tobaccoism * Patient states that occasionally she still has a cigarette. Otherwise she has stopped smoking. Plan * Admit to ICU on BiPAP * Monitor ABG as needed * Continue Rocephin * Follow blood cultures and urine culture * Increase Lasix to 40 mg IV twice daily * Echocardiogram in the morning * Solu-Medrol 125 mg x 1 then 40 mg every 6 hours starting the morning * DuoNeb every 6 hours * Albuterol nebulizer every 2 hours as needed * Morphine 2 mg IV every 2 hours as needed for pelvic pain. * Start physical therapy in 1 to 2 days. Improve oxygenation prior to starting physical therapy. * Continue BiPAP and titrate per ABGs. * Repeat labs in the morning and ABG * VTE prophylaxis with Lovenox * CODE STATUS: Full code 08/08/2020 55-year-old female with history of COPD and CHF with no significant change overnight. Patient continues on IV Lasix, Solu-Medrol, DuoNeb, and BiPAP. There was some issue with oxygen saturation inappropriately reading high and repeat blood gases have shown no significant changes except for a increase in her bicarb correcting the acidosis. PCO2 on repeat blood gas is still elevated at 82. Echocardiogram has been performed and pending. Renal function has also improved. Creatinine of 1.0 with estimated GFR greater than 60. Continue on Rocephin and BiPAP overnight. Recheck ABG as needed. 08/09/2020 Patient has had significant improvement. Her ventilation has improved. Her current pH is 7.44 with a PCO2 of 69. PO2 was 67 mmHg. Bicarb continues to be elevated at 45.6 on blood gas and 42 on serum reflecting a delay in the compensation from her hypercapnia. Renal function is stable with creatinine at 1.2. Hypomagnesemia and hypokalemia likely secondary to diuresis. Both of those will be corrected today. BNP at last night was increased to 16,000 and today it is 13,000. Overall patient is making significant improvements and should be able to tolerate periods of O2 via nasal cannula. When she sleeps she still needs to be on BiPAP. Continue on Rocephin for her UTI. Gram-negative rods are growing in her urine culture. Blood cultures continue to be negative. Continue Lasix 40 mg IV twice a day. Patient will also be started on spironolactone 25 mg daily. Continue on Solu-Medrol 40 mg every 6 hours today and decrease it to every 8 hours tomorrow.
[2020-08-09] MEDS: Enoxaparin 40 MG/0.4 ML Syringe SUBCUT SCH (08:07)
[2020-08-09] MEDS: Spironolactone 25 MG Tab PO SCH (08:08)
[2020-08-09] MEDS ORDERED: Acetaminophen 325 MG Tab PO PRN (08:32)
[2020-08-09] MEDS: oxyCODONE 5 MG Tab PO PRN ×4 (08:42→23:02)
[2020-08-09] MEDS ORDERED: Bisacodyl 10 MG Supp RECTAL ONE (10:45)
[2020-08-09] MEDS: Furosemide 40 MG/4 ML VIAL IVPUSH SCH (13:58)
[2020-08-09] MEDS: cefTRIAXone 1 GM in Sodium Chloride 0.9% 100 ML IV SCH (21:09)
[2020-08-10] MEDS: methylPREDNISolone Sodium Succinate 40 MG/1 ML SDV IVPUSH SCH ×4 (04:05→20:09)
[2020-08-10] MEDS: Albuterol/Ipratropium 3.0-0.5 MG/3 ML Neb Soln NEB SCH ×2 (05:17→20:52)
[2020-08-10] MEDS: Furosemide 40 MG/4 ML VIAL IVPUSH SCH ×2 (05:54→13:53)
[2020-08-10] MEDS: oxyCODONE 5 MG Tab PO PRN (05:55)
[2020-08-10] MEDS: Enoxaparin 40 MG/0.4 ML Syringe SUBCUT SCH (08:52)
[2020-08-10] MEDS: Spironolactone 25 MG Tab PO SCH (08:53)
[2020-08-10] MEDS ORDERED: Magnesium Hydroxide 400 MG/5 ML Susp 30 ML Cup PO ONE (09:22)
[2020-08-10] MEDS ORDERED: Metoclopramide 10 MG/2 ML SDV IVPUSH ONE (09:34)
[2020-08-10] MEDS ORDERED: Bisacodyl 10 MG Supp RECTAL ONE (09:43)
[2020-08-10] MEDS ORDERED: Nystatin Topical Powder 15 GM Bottle TOP PRN (10:07)
--- NOTE | 2020-08-10 11:45 | PCM.PN ---
- General Info Date of Service: 08/10/20 Admission Dx/Problem (Free Text): Admission Diagnosis/Problem Admission Diagnosis/Problem Hypercapnia with mixed acid-base disorder Subjective Update: Patient's respiratory rate and mentation has been in and out most of the day. This is correlating well with her PCO2. When patient is more obtunded her PCO2 certainly increases. Patient has stated several times that she does not want to fight anymore, but when asked if she still wants to be intubated she says she does. She initially stated that she wants to be intubated just so her family is near her when she dies. Patient has family here now and has been determined that she will continue to be treated as a full code. Patient also had a 3.3 L fluid loss over hospitalization. Unfortunately, there appears to have been some issue with initial weights, therefore weights appear to be inaccurate. Functional Status: Reports: Pain Controlled - Review of Systems General: Reports: Weakness, Fatigue HEENT: Reports: No Symptoms Pulmonary: Reports: Shortness of Breath Cardiovascular: Reports: No Symptoms Gastrointestinal: Reports: No Symptoms Neurological: Reports: Confusion - Patient Data Vitals - Most Recent: Last Vital Signs Temp 99.5 F 08/10/20 08:00 Pulse 75 08/10/20 08:00 Resp 18 08/10/20 08:00 BP 153/98 H 08/10/20 08:00 Pulse Ox 92 L 08/10/20 08:00 Weight - Most Recent: 170 lb 4.8 oz I&O - Last 24 Hours: Intake & Output 08/09/20 08/10/20 08/10/20 22:59 06:59 14:59 Intake Total 670 250 240 Output Total 1050 350 405 Balance -380 -100 -165 Lab Results Last 24 Hours: Laboratory Results - last 24 hr 08/10/20 08/10/20 08/10/20 Range/Units 04:23 04:23 07:20 WBC 10.16 H (3.98-10.04) K/mm3 RBC 4.73 (3.98-5.22) M/mm3 Hgb 11.4 (11.2-15.7) gm/dl Hct 42.3 (34.1-44.9) % MCV 89.4 (79.4-94.8) fl MCH 24.1 L (25.6-32.2) pg MCHC 27.0 L (32.2-35.5) g/dl RDW Std Deviation 68.9 H (36.4-46.3) fL Plt Count 151 L (182-369) K/mm3 MPV 10.9 (9.4-12.3) fl Neut % (Auto) 93.0 H (34.0-71.1) % Lymph % (Auto) 2.2 L (19.3-51.7) % [place] % (Auto) 4.6 L (4.7-12.5) % Eos % (Auto) 0 L (0.7-5.8) Baso % (Auto) 0.0 L (0.1-1.2) % Neut # (Auto) 9.45 H (1.56-6.13) K/mm3 Lymph # (Auto) 0.22 L (1.18-3.74) K/mm3 [place] # (Auto) 0.47 H (0.24-0.36) K/mm3 Eos # (Auto) 0.00 L (0.04-0.36) K/mm3 Baso # (Auto) 0.00 L (0.01-0.08) K/mm3 Manual Slide Review Abnormal smear Puncture Site Rt radial ABG pH 7.35 (7.35-7.45) ABG pCO2 91.1 H* (35.0-45.0) mmHg ABG pO2 62.0 L (80.0-100.0) mmHg ABG HCO3 49.1 H (22.0-26.0) meq/L ABG O2 Saturation 86.7 L (96.0-97.0) % ABG Base Excess 19.4 H (-2-2.0) Anil Test Positive A-a Gradient 138 mmHg O2 Delivery Device Nasal cannula Oxygen Flow Rate 6.0 FiO2 44.00 (21.00-100.00) % Sodium 139 (136-145) mEq/L Potassium 3.5 (3.5-5.1) mEq/L Chloride 93 L (98-107) mEq/L Carbon Dioxide 44 H* (21-32) mEq/L Anion Gap 5.5 (5-15) BUN 21 H (7-18) mg/dL Creatinine 1.0 (0.55-1.02) mg/dL Est Cr Clr Drug Dosing 44.36 mL/min Estimated GFR (MDRD) 56 (>60) mL/min BUN/Creatinine Ratio 21.0 H (14-18) Glucose 124 H (80-115) mg/dL Calcium 8.7 (8.5-10.1) mg/dL Magnesium 2.2 (1.8-2.4) mg/dl Total Bilirubin 0.9 (0.2-1.0) mg/dL AST 11 L (15-37) U/L ALT 8 L (14-59) U/L Alkaline Phosphatase 60 (46-116) U/L C-Reactive Protein 0.6 (<1.0) mg/dL Total Protein 7.1 (6.4-8.2) g/dl Albumin 3.4 (3.4-5.0) g/dl Globulin 3.7 gm/dL Albumin/Globulin Ratio 0.9 L (1-2) [place] Results Last 24 Hours: Microbiology 08/07/20 22:17 Aerobic Blood Culture - Preliminary Blood - Venous - Lab Draw NO GROWTH AFTER 2 DAYS Anaerobic Blood Culture - Preliminary NO GROWTH AFTER 2 DAYS 08/07/20 22:32 Aerobic Blood Culture - Preliminary Blood - Venous NO GROWTH AFTER 2 DAYS Anaerobic Blood Culture - Preliminary NO GROWTH AFTER 2 DAYS 08/07/20 21:37 Urine Culture - Final Urine, [place] Cath (Indwelling) Escherichia Coli Med Orders - Current: Current Medications Acetaminophen (Tylenol) 975 mg PO Q6H PRN PRN Reason: Pain Albuterol (Proventil Neb Soln) 2.5 mg NEB Q2H PRN PRN Reason: Shortness Of Breath/wheezing Albuterol/Ipratropium (Duoneb 3.0-0.5 Mg/3 Ml) 3 ml NEB BIDRT [facility] Last Admin: 08/10/20 05:17 Dose: 3 ml Documented by: Enoxaparin Sodium (Lovenox) 40 mg SUBCUT DAILY [facility] Last Admin: 08/10/20 08:52 Dose: 40 mg Documented by: Furosemide (Lasix) 40 mg IVPUSH BIDDIURETIC [facility] Last Admin: 08/10/20 05:54 Dose: 40 mg Documented by: Ceftriaxone Sodium 1 gm/ (Sodium Chloride) 100 mls @ 200 mls/hr IV Q24H [facility] Last Admin: 08/09/20 21:09 Dose: 200 mls/hr Documented by: Methylprednisolone Sodium Succinate (Solu-Medrol) 40 mg IVPUSH Q6H [facility] Last Admin: 08/10/20 08:52 Dose: 40 mg Documented by: Morphine Sulfate (Morphine) 2 mg IVPUSH Q2H PRN PRN Reason: Pain Last Admin: 08/09/20 04:31 Dose: 2 mg Documented by: Nystatin (Nystop) 1 gm TOP QID PRN PRN Reason: Itching Last Admin: 08/10/20 10:12 Dose: 1 applic Documented by: Ondansetron HCl (Zofran) 4 mg IV Q4H PRN PRN Reason: Nausea/Vomiting Last Admin: 08/10/20 08:52 Dose: 4 mg Documented by: Oxycodone HCl (Oxycodone) 10 mg PO Q4H PRN PRN Reason: Pain Last Admin: 08/10/20 05:55 Dose: 10 mg Documented by: Sodium Chloride (Saline Flush) 10 ml FLUSH ASDIRECTED PRN PRN Reason: Keep Vein Open Last Admin: 08/07/20 20:35 Dose: 10 ml Documented by: Spironolactone (Aldactone) 25 mg PO DAILY [facility] Last Admin: 08/10/20 08:53 Dose: 25 mg Documented by: Discontinued Medications Albuterol/Ipratropium (Duoneb 3.0-0.5 Mg/3 Ml) 3 ml NEB Q6HRRT [facility] Last Admin: 08/09/20 02:18 Dose: 3 ml Documented by: Bisacodyl (Dulcolax) 10 mg RECTAL ONETIME ONE Stop: 08/09/20 10:46 Last Admin: 08/09/20 12:44 Dose: Not Given Documented by: Bisacodyl (Dulcolax) 10 mg RECTAL ONETIME ONE Stop: 08/10/20 09:44 Last Admin: 08/10/20 10:12 Dose: 10 mg Documented by: Furosemide (Lasix) 40 mg IV ONETIME ONE Stop: 08/07/20 21:51 Last Admin: 08/07/20 21:56 Dose: 40 mg Documented by: Furosemide (Lasix) 40 mg IVPUSH BIDDIURETIC [facility] Last Admin: 08/09/20 06:16 Dose: 40 mg Documented by: Ceftriaxone Sodium 2 gm/ (Sodium Chloride) 100 mls @ 200 mls/hr IV ONETIME ONE Stop: 08/07/20 22:28 Last Admin: 08/07/20 22:39 Dose: 200 mls/hr Documented by: Magnesium Sulfate 4 gm/ Premix 50 mls @ 12.5 mls/hr IV ONETIME ONE Stop: 08/09/20 11:59 Last Admin: 08/09/20 08:09 Dose: 12.5 mls/hr Documented by: Influenza Virus Vaccine (Pharmacy To Dose - Influenza Vaccine) 1 each IM ONETIME ONE Stop: 08/08/20 00:15 Influenza Virus Vaccine (Fluzone High-Dose Quad ) 240 mcg IM .ONCE ONE Stop: 08/08/20 10:01 Magnesium Hydroxide (Milk Of Magnesia) 30 ml PO ONETIME ONE Stop: 08/10/20 09:23 Last Admin: 08/10/20 10:58 Dose: Not Given Documented by: Methylprednisolone Sodium Succinate (Solu-Medrol) 125 mg IVPUSH ONETIME ONE Stop: 08/07/20 23:32 Last Admin: 08/07/20 23:54 Dose: 125 mg Documented by: Metoclopramide HCl (Reglan) 5 mg IVPUSH ONETIME ONE Stop: 08/10/20 09:35 Last Admin: 08/10/20 09:56 Dose: 5 mg Documented by: Morphine Sulfate (Morphine) 2 mg IVPUSH ONETIME ONE Stop: 08/07/20 21:55 Last Admin: 08/07/20 22:02 Dose: 2 mg Documented by: Morphine Sulfate (Morphine) 2 mg IVPUSH Q2H PRN PRN Reason: Pain (severe 7-10) Stop: 08/08/20 23:29 Last Admin: 08/08/20 20:00 Dose: 2 mg Documented by: Potassium Chloride (Klor-Con M20) 40 meq PO ONETIME ONE Stop: 08/09/20 08:01 Last Admin: 08/09/20 08:08 Dose: 40 meq Documented by: - Exam Quality Assessment: Supplemental Oxygen, Urine Catheter General: Alert, Oriented Neck: Supple Lungs: Decreased Breath Sounds (Increased), Crackles, Wheezing. No: Normal Respiratory Effort Cardiovascular: Regular Rate, Regular Rhythm GI/Abdominal Exam: Normal Bowel Sounds, Soft, Non-Tender, No Distention Extremities: Normal Inspection, Normal Capillary Refill, Pedal Edema (1-2+) Skin: Warm, Dry, Intact Sepsis Event Note - Evaluation Sepsis Screening Result: No Definite Risk - Focused Exam Vital Signs: Vital Signs Temp Pulse Resp BP Pulse Ox Pulse Ox Pulse Ox 08/10/20 08:00 99.5 F 75 18 153/98 H 92 L 08/10/20 05:24 92 L 08/10/20 05:17 99 08/10/20 01:42 98 08/10/20 00:58 90 L 08/10/20 00:57 88 L 08/10/20 00:00 98.2 F 69 18 120/62 96 - Problem List & Annotations (1) COPD exacerbation SNOMED Code(s): 777032230 Code(s): J44.1 - CHRONIC OBSTRUCTIVE PULMONARY DISEASE W (ACUTE) EXACERBATION Status: Acute Current Visit: Yes (2) Congestive heart failure SNOMED Code(s): 63512594 Code(s): I50.9 - HEART FAILURE, UNSPECIFIED Status: Acute Current Visit: Yes Qualifiers: Heart failure type: unspecified Heart failure chronicity: acute on chronic Qualified Code(s): I50.9 - Heart failure, unspecified (3) Hypercapnic acidosis SNOMED Code(s): 35393924 Code(s): E87.2 - ACIDOSIS Status: Acute Current Visit: Yes (4) Sacral fracture SNOMED Code(s): 248266405 Code(s): S32.10XA - UNSP FRACTURE OF SACRUM, INIT ENCNTR FOR CLOSED FRACTURE Status: Acute Current Visit: Yes Qualifiers: Encounter type: initial encounter Zone of sacrum fracture: unspecified portion of sacrum Fracture type: closed Qualified Code(s): S32.10XA - Unspecified fracture of sacrum, initial encounter for closed fracture (5) Urinary tract infection SNOMED Code(s): 23727334 Code(s): N39.0 - URINARY TRACT INFECTION, SITE NOT SPECIFIED Status: Acute Current Visit: Yes Qualifiers: Urinary tract infection type: site unspecified Hematuria presence: with hematuria Qualified Code(s): N39.0 - Urinary tract infection, site not specified; R31.9 - Hematuria, unspecified - Problem List Review Problem List Initiated/Reviewed/Updated: Yes - My Orders Last 24 Hours: My Active Orders 08/09/20 14:00 Furosemide [Lasix] 40 mg IVPUSH BIDDIURETIC 08/09/20 14:24 PT Evaluation and Treatment [CONS] Routine 08/09/20 14:25 OT Evaluation and Treatment [CONS] Routine 08/10/20 10:07 Nystatin [Nystop] 1 gm TOP QID PRN 08/10/20 10:48 Chest 1V Frontal [CR] Urgent - Plan Plan:: Assessment 65-year-old female with history of coronary artery disease and congestive heart failure presents to the emergency department with increasing shortness of breath and dyspnea on exertion for 2 days. Exacerbation of CHF and COPD with severe hypercapnia * Patient increased her home O2 from 2 L/min to 3 L/min likely worsening her hypercapnia. * Significant increase in her respiratory rate. * White count 12,000 with left shift. * Chest x-ray with no significant infiltrate or edema, but significant for emphysema with bronchitis. * proBNP of 10,237 with known history of congestive heart failure. * Initial PCO2 above 80 with only slight improvement after starting BiPAP. * Initial pH low at 7.29 * No significant mental status changes. * Started on Rocephin in the emergency department and given Lasix IV * She is on Advair at home. Nondisplaced sacral fracture * Morphine 2 mg IV in the emergency department with good results. UTI * Patient denies any symptoms of urinary infection, but does have positive nitrites and 20-30 WBCs. * Urine culture sent in the emergency department * Blood cultures sent Acute renal injury versus chronic renal insufficiency * Estimated GFR 45, creatinine of 1.2. * Likely acute on chronic renal insufficiency secondary to intravascular depletion from her congestive heart failure. Tobaccoism * Patient states that occasionally she still has a cigarette. Otherwise she has stopped smoking. Plan * Admit to ICU on BiPAP * Monitor ABG as needed * Continue Rocephin * Follow blood cultures and urine culture * Increase Lasix to 40 mg IV twice daily * Echocardiogram in the morning * Solu-Medrol 125 mg x 1 then 40 mg every 6 hours starting the morning * DuoNeb every 6 hours * Albuterol nebulizer every 2 hours as needed * Morphine 2 mg IV every 2 hours as needed for pelvic pain. * Start physical therapy in 1 to 2 days. Improve oxygenation prior to starting physical therapy. * Continue BiPAP and titrate per ABGs. * Repeat labs in the morning and ABG * VTE prophylaxis with Lovenox * CODE STATUS: Full code 08/08/2020 55-year-old female with history of COPD and CHF with no significant change overnight. Patient continues on IV Lasix, Solu-Medrol, DuoNeb, and BiPAP. There was some issue with oxygen saturation inappropriately reading high and repeat blood gases have shown no significant changes except for a increase in her bicarb correcting the acidosis. PCO2 on repeat blood gas is still elevated at 82. Echocardiogram has been performed and pending. Renal function has also improved. Creatinine of 1.0 with estimated GFR greater than 60. Continue on Rocephin and BiPAP overnight. Recheck ABG as needed. 08/09/2020 Patient has had significant improvement. Her ventilation has improved. Her current pH is 7.44 with a PCO2 of 69. PO2 was 67 mmHg. Bicarb continues to be elevated at 45.6 on blood gas and 42 on serum reflecting a delay in the compensation from her hypercapnia. Renal function is stable with creatinine at 1.2. Hypomagnesemia and hypokalemia likely secondary to diuresis. Both of those will be corrected today. BNP at last night was increased to 16,000 and t monica it is 13,000. Overall patient is making significant improvements and should be able to tolerate periods of O2 via nasal cannula. When she sleeps she still needs to be on BiPAP. Continue on Rocephin for her UTI. Gram-negative rods are growing in her urine culture. Blood cultures continue to be negative. Continue Lasix 40 mg IV twice a day. Patient will also be started on spironolactone 25 mg daily. Continue on Solu-Medrol 40 mg every 6 hours today and decrease it to every 8 hours tomorrow. 08/10/2020 Respiratory status has worsened today with her most recent ABG: pH 7.35, PCO2 92.0, PO2 63, bicarb 49.5, on BiPAP settings of 20/12, FiO2 40%. This is an improvement over earlier blood gases that showed a PCO2 of 105. Patient is fully compensated for the respiratory acidosis. She was given 1 dose of acetazolamide 250 mg with minimal improvement in her bicarb. CTA of the chest was performed secondary to worsening hypoxemia, hypercarbia, and elevated D-dimer. Impression showed bilateral pulmonary effusions with moderate emphysema. There was some changes to the left breast noted and may be inflammatory or neoplastic. This will need to be followed up. Echocardiogram: Summary: 1. Low ventricular ejection fraction, by visual estimation, is 60 to 65%. 2. Right ventricular size is severely enlarged. 3. Severely reduced right ventricular systolic function. 4. Aortic valve is structurally normal and tricuspid 5. No aortic valve stenosis. 6. Mild aortic valve regurgitation. 7. Mild mitral valve regurgitation. 8. Mild to moderate tricuspid valve regurgitation. 9. The right ventricular systolic pressure is severely elevated at 75.2 mmHg. 10. No regional wall motion abnormalities. 11. "D-shaped" septal flattening consistent with pulmonary hypertension. Consider pulmonary embolism. (CTA ruled out pulmonary embolism) Plan: Patient will continue on BiPAP titrated to PCO2. Goal will be improved ventilation. Acetazolamide 250 mg IV will be given 1 additional time in the morning. Lasix will be held tomorrow morning to reduce the likelihood of hypotension and metabolic alkalosis. Long discussion with her and her niece today in regards to intubation. Patient only want to be intubated so she could stay alive long enough for her family to see her. Apparently, family is now in town. Patient does want to be intubated still if BiPAP fails. Routine labs in the morning. CODE STATUS remains full code, but she has a very poor prognosis.
[2020-08-10] MEDS ORDERED: Iopamidol 755 Mg/ML 100 ML Bottle IVPUSH ONE (13:57)
[2020-08-10] MEDS ORDERED: Sodium Chloride 0.9% 10 ML Syringe FLUSH PRN (13:57)
[2020-08-10] MEDS ORDERED: Sodium Chloride 0.9% 100 ML IV SCH (14:00)
[2020-08-10] MEDS ORDERED: acetaZOLAMIDE 500 MG Vial IVPUSH ONE (16:00)
[2020-08-10] MEDS: NS + KCl 20mEq/L 1,000 ML IV SCH (17:21)
[2020-08-10] MEDS: Morphine 2 MG/ML SYRINGE IVPUSH PRN (20:12)
[2020-08-10] MEDS: cefTRIAXone 1 GM in Sodium Chloride 0.9% 100 ML IV SCH (22:01)
[2020-08-11] MEDS: methylPREDNISolone Sodium Succinate 40 MG/1 ML SDV IVPUSH SCH ×4 (01:49→20:00)
[2020-08-11] MEDS: Morphine 2 MG/ML SYRINGE IVPUSH PRN ×2 (02:06→15:06)
[2020-08-11] MEDS ORDERED: acetaZOLAMIDE 500 MG Vial IVPUSH ONE (04:00)
[2020-08-11] MEDS: NS + KCl 20mEq/L 1,000 ML IV SCH ×2 (05:34→18:51)
[2020-08-11] MEDS: Albuterol/Ipratropium 3.0-0.5 MG/3 ML Neb Soln NEB SCH ×2 (05:45→20:39)
[2020-08-11] MEDS: Enoxaparin 40 MG/0.4 ML Syringe SUBCUT SCH (08:04)
[2020-08-11] MEDS: Spironolactone 25 MG Tab PO SCH (08:05)
--- NOTE | 2020-08-11 11:17 | CR ---
Chest: Portable view of the chest was obtained. Comparison: Prior chest x-ray of 08/07/20. Heart is enlarged. Upper mediastinum is normal. Lungs are clear. Bony structures are grossly intact. Impression: 1. Cardiomegaly. 2. Nothing acute is appreciated. Diagnostic code #2 I agree with preliminary report from [facility], finalized on 08/10/20, 12:39 PM [employer]
--- NOTE | 2020-08-11 11:20 | CT ---
CT chest Technique: Multiple axial sections were obtained from above the lung apices inferiorly through the lung bases. Intravenous contrast was utilized. Study has been performed as a pulmonary angiogram protocol. Findings: Small bilateral pleural effusions are noted. Small amount of fluid is seen around the upper liver within the abdomen. Heart is slightly enlarged with no pleural effusion. Mild coronary artery calcification is seen. Thoracic aorta shows atherosclerotic change without aneurysm. There is no pulmonary embolism being seen. There is subcutaneous edema being seen within the left breast. Emphysematous changes are seen throughout both lungs. No acute parenchymal change is definitely appreciated. Minimal atelectasis is seen adjacent to the pleural effusion within the left lung base. Bone window settings were obtained which show prior compression deformity and vertebroplasty within L2. Mild compression deformity seen of L1. Scattered disc space narrowing and endplate spurring are noted within the spine. Two old rib fractures are seen within the left fifth and sixth ribs. No acute osseous finding is appreciated. Impression: 1. Small bilateral pleural effusions. Small amount of fluid around the right lobe of the liver. 2. Mild atelectasis within the left lung base. 3. Prominent edema within the soft tissues of the left breast which could be due to inflammatory change or neoplastic. 4. No findings of pulmonary embolism. 5. Other findings as noted above. Diagnostic code #9 I agree with preliminary report from [facility], finalized on 08/10/20, 3:30 PM [employer]
[2020-08-11] MEDS ORDERED: Sodium Chloride 0.9% 250 ML IV SCH (13:30)
[2020-08-11] MEDS ORDERED: Sodium Chloride 0.9% 500 ML ONE (13:34)
[2020-08-11] MEDS: oxyCODONE 5 MG Tab PO PRN (21:55)
[2020-08-11] MEDS: cefTRIAXone 1 GM in Sodium Chloride 0.9% 100 ML IV SCH (21:56)
[2020-08-11] MEDS: FLU Vacc QV2020-21(65YR UP)/PF 240 MCG/0.7 ML Syringe IM ONE (22:38)
--- NOTE | 2020-08-11 22:48 | PCM.PN ---
- General Info Date of Service: 08/11/20 Admission Dx/Problem (Free Text): Admission Diagnosis/Problem Admission Diagnosis/Problem Hypercapnia with mixed acid-base disorder Subjective Update: Patient started the morning with having difficulty being aroused. It appeared that she was "playing possum.". Sternal rub cause very little change in her mentation but when the covers were lifted to look at her hands that she opened her eyes, move them, and then appeared wide-awake. Later in the evening patient admitted to ignoring her attempts to arouse her. She actually stated that she purposely ignored me rubbing her sternum. She has done much better with lower P CO2 overnight on BiPAP. Functional Status: Reports: Pain Controlled - Review of Systems General: Reports: Fatigue HEENT: Reports: No Symptoms Pulmonary: Reports: No Symptoms Cardiovascular: Reports: No Symptoms Gastrointestinal: Reports: No Symptoms Genitourinary: Reports: No Symptoms Musculoskeletal: Reports: No Symptoms - Patient Data Vitals - Most Recent: Last Vital Signs Temp 97.8 F 08/11/20 20:00 Pulse 80 08/11/20 04:00 Resp 20 08/11/20 20:00 BP 163/90 H 08/11/20 20:00 Pulse Ox 95 08/11/20 20:39 Weight - Most Recent: 171 lb 12.8 oz I&O - Last 24 Hours: Intake & Output 08/11/20 08/11/20 08/11/20 06:59 14:59 22:59 Intake Total 1005 927 Output Total 295 350 310 Balance 710 -350 617 Lab Results Last 24 Hours: Laboratory Results - last 24 hr 08/11/20 08/11/20 08/11/20 Range/Units 06:00 08:37 08:37 WBC 11.54 H (3.98-10.04) K/mm3 RBC 4.86 (3.98-5.22) M/mm3 Hgb 11.7 (11.2-15.7) gm/dl Hct 43.7 (34.1-44.9) % MCV 89.9 (79.4-94.8) fl MCH 24.1 L (25.6-32.2) pg MCHC 26.8 L (32.2-35.5) g/dl RDW Std Deviation 69.8 H (36.4-46.3) fL Plt Count 149 L (182-369) K/mm3 MPV 10.1 (9.4-12.3) fl Neut % (Auto) 94.3 H (34.0-71.1) % Lymph % (Auto) 1.2 L (19.3-51.7) % Power % (Auto) 4.2 L (4.7-12.5) % Eos % (Auto) 0 L (0.7-5.8) Baso % (Auto) 0.0 L (0.1-1.2) % Neut # (Auto) 10.89 H (1.56-6.13) K/mm3 Lymph # (Auto) 0.14 L (1.18-3.74) K/mm3 Power # (Auto) 0.48 H (0.24-0.36) K/mm3 Eos # (Auto) 0.00 L (0.04-0.36) K/mm3 Baso # (Auto) 0.00 L (0.01-0.08) K/mm3 Manual Slide Review Abnormal smear Puncture Site Rt radial ABG pH 7.38 (7.35-7.45) ABG pCO2 79.5 H* (35.0-45.0) mmHg ABG pO2 69.0 L (80.0-100.0) mmHg ABG HCO3 46.3 H (22.0-26.0) meq/L ABG O2 Saturation 92.4 L (96.0-97.0) % ABG Base Excess 17.5 H (-2-2.0) Anil Test Positive A-a Gradient 117 mmHg O2 Delivery Device Bipap FiO2 0.00 L (21.00-100.00) % PEEP 12.0 cmH20 Pressure Support 20.0 cmH2O Sodium 139 (136-145) mEq/L Potassium 3.4 L (3.5-5.1) mEq/L Chloride 94 L (98-107) mEq/L Carbon Dioxide 43 H* (21-32) mEq/L Anion Gap 5.4 (5-15) BUN 23 H (7-18) mg/dL Creatinine 0.9 (0.55-1.02) mg/dL Est Cr Clr Drug Dosing 49.29 mL/min Estimated GFR (MDRD) > 60 (>60) mL/min BUN/Creatinine Ratio 25.6 H (14-18) Glucose 136 H (80-115) mg/dL Calcium 9.2 (8.5-10.1) mg/dL Phosphorus 3.2 (2.6-4.7) mg/dL Magnesium 2.0 (1.8-2.4) mg/dl Total Bilirubin 1.1 H (0.2-1.0) mg/dL AST 4 L (15-37) U/L ALT 11 L (14-59) U/L Alkaline Phosphatase 61 (46-116) U/L Total Protein 7.0 (6.4-8.2) g/dl Albumin 3.5 (3.4-5.0) g/dl Globulin 3.5 gm/dL Albumin/Globulin Ratio 1.0 (1-2) Martinez Results Last 24 Hours: Microbiology 08/07/20 22:17 Aerobic Blood Culture - Preliminary Blood - Venous - Lab Draw NO GROWTH AFTER 4 DAYS Anaerobic Blood Culture - Preliminary NO GROWTH AFTER 4 DAYS 08/07/20 22:32 Aerobic Blood Culture - Preliminary Blood - Venous NO GROWTH AFTER 4 DAYS Anaerobic Blood Culture - Preliminary NO GROWTH AFTER 4 DAYS Med Orders - Current: Current Medications Acetaminophen (Tylenol) 975 mg PO Q6H PRN PRN Reason: Pain Albuterol (Proventil Neb Soln) 2.5 mg NEB Q2H PRN PRN Reason: Shortness Of Breath/wheezing Albuterol/Ipratropium (Duoneb 3.0-0.5 Mg/3 Ml) 3 ml NEB BIDRT [facility] Last Admin: 08/11/20 20:39 Dose: 3 ml Documented by: Enoxaparin Sodium (Lovenox) 40 mg SUBCUT DAILY [facility] Last Admin: 08/11/20 08:04 Dose: 40 mg Documented by: Ceftriaxone Sodium 1 gm/ (Sodium Chloride) 100 mls @ 200 mls/hr IV Q24H [facility] Last Admin: 08/11/20 21:56 Dose: 200 mls/hr Documented by: Sodium Chloride (Normal Saline) 250 mls @ 10 mls/hr IV ASDIRECTED [facility] Methylprednisolone Sodium Succinate (Solu-Medrol) 40 mg IVPUSH Q6H [facility] Last Admin: 08/11/20 20:00 Dose: 40 mg Documented by: Morphine Sulfate (Morphine) 2 mg IVPUSH Q2H PRN PRN Reason: Pain Last Admin: 08/11/20 15:06 Dose: 2 mg Documented by: Nystatin (Nystop) 1 gm TOP QID PRN PRN Reason: Itching Last Admin: 08/10/20 10:12 Dose: 1 applic Documented by: Ondansetron HCl (Zofran) 4 mg IV Q4H PRN PRN Reason: Nausea/Vomiting Last Admin: 08/10/20 08:52 Dose: 4 mg Documented by: Oxycodone HCl (Oxycodone) 10 mg PO Q4H PRN PRN Reason: Pain Last Admin: 08/11/20 21:55 Dose: 10 mg Documented by: Sodium Chloride (Saline Flush) 10 ml FLUSH ASDIRECTED PRN PRN Reason: Keep Vein Open Last Admin: 08/07/20 20:35 Dose: 10 ml Documented by: Spironolactone (Aldactone) 25 mg PO DAILY [facility] Last Admin: 08/11/20 08:05 Dose: 25 mg Documented by: Discontinued Medications Acetazolamide (Diamox) 250 mg IVPUSH ONETIME ONE Stop: 08/10/20 16:01 Last Admin: 08/10/20 16:38 Dose: 250 mg Documented by: Acetazolamide (Diamox) 250 mg IVPUSH ONETIME ONE Stop: 08/11/20 04:01 Last Admin: 08/11/20 03:49 Dose: 250 mg Documented by: Albuterol/Ipratropium (Duoneb 3.0-0.5 Mg/3 Ml) 3 ml NEB Q6HRRT [facility] Last Admin: 08/09/20 02:18 Dose: 3 ml Documented by: Bisacodyl (Dulcolax) 10 mg RECTAL ONETIME ONE Stop: 08/09/20 10:46 Last Admin: 08/09/20 12:44 Dose: Not Given Documented by: Bisacodyl (Dulcolax) 10 mg RECTAL ONETIME ONE Stop: 08/10/20 09:44 Last Admin: 08/10/20 10:12 Dose: 10 mg Documented by: Furosemide (Lasix) 40 mg IV ONETIME ONE Stop: 08/07/20 21:51 Last Admin: 08/07/20 21:56 Dose: 40 mg Documented by: Furosemide (Lasix) 40 mg IVPUSH BIDDIURETIC [facility] Last Admin: 08/09/20 06:16 Dose: 40 mg Documented by: Furosemide (Lasix) 40 mg IVPUSH BIDDIURETIC [facility] Last Admin: 08/10/20 13:53 Dose: 40 mg Documented by: Ceftriaxone Sodium 2 gm/ (Sodium Chloride) 100 mls @ 200 mls/hr IV ONETIME ONE Stop: 08/07/20 22:28 Last Admin: 08/07/20 22:39 Dose: 200 mls/hr Documented by: Magnesium Sulfate 4 gm/ Premix 50 mls @ 12.5 mls/hr IV ONETIME ONE Stop: 08/09/20 11:59 Last Admin: 08/09/20 08:09 Dose: 12.5 mls/hr Documented by: Sodium Chloride (Normal Saline) 100 mls @ 75 mls/hr IV ASDIRECTED [facility] Stop: 08/10/20 16:30 Last Admin: 08/10/20 14:17 Dose: 75 mls/hr Documented by: Potassium Chloride/Sodium Chloride (Normal Saline With 20 Meq Kcl) 1,000 mls @ 75 mls/hr IV ASDIRECTED [facility] Last Admin: 08/11/20 18:51 Dose: 75 mls/hr Documented by: Sodium Chloride (Normal Saline) Confirm Administered Dose 500 mls @ as directed .ROUTE .STK-MED ONE Stop: 08/11/20 13:35 Last Admin: 08/11/20 13:58 Dose: Not Given Documented by: Influenza Virus Vaccine (Pharmacy To Dose - Influenza Vaccine) 1 each IM ONETIME ONE Stop: 08/08/20 00:15 Influenza Virus Vaccine (Fluzone High-Dose Quad 2019-) 240 mcg IM .ONCE ONE Stop: 08/08/20 10:01 Last Admin: 08/11/20 22:38 Dose: Not Given Documented by: Iopamidol (Isovue-370 (76%)) 100 ml IVPUSH ONETIME ONE Stop: 08/10/20 13:58 Last Admin: 08/10/20 14:17 Dose: 100 ml Documented by: Magnesium Hydroxide (Milk Of Magnesia) 30 ml PO ONETIME ONE Stop: 08/10/20 09:23 Last Admin: 08/10/20 10:58 Dose: Not Given Documented by: Methylprednisolone Sodium Succinate (Solu-Medrol) 125 mg IVPUSH ONETIME ONE Stop: 08/07/20 23:32 Last Admin: 08/07/20 23:54 Dose: 125 mg Documented by: Metoclopramide HCl (Reglan) 5 mg IVPUSH ONETIME ONE Stop: 08/10/20 09:35 Last Admin: 08/10/20 09:56 Dose: 5 mg Documented by: Morphine Sulfate (Morphine) 2 mg IVPUSH ONETIME ONE Stop: 08/07/20 21:55 Last Admin: 08/07/20 22:02 Dose: 2 mg Documented by: Morphine Sulfate (Morphine) 2 mg IVPUSH Q2H PRN PRN Reason: Pain (severe 7-10) Stop: 08/08/20 23:29 Last Admin: 08/08/20 20:00 Dose: 2 mg Documented by: Potassium Chloride (Klor-Con M20) 40 meq PO ONETIME ONE Stop: 08/09/20 08:01 Last Admin: 08/09/20 08:08 Dose: 40 meq Documented by: Sodium Chloride (Saline Flush) 10 ml FLUSH ONETIME PRN PRN Reason: IV FLUSH Stop: 08/10/20 16:30 Last Admin: 08/10/20 14:17 Dose: 10 ml Documented by: - Exam Quality Assessment: Supplemental Oxygen (BiPAP), Urine Catheter General: No Acute Distress HEENT: Pupils Equal Neck: Supple Lungs: Decreased Breath Sounds, Rales (Throughout). No: Normal Respiratory Effort (Increased respiratory rate and effort) Cardiovascular: Regular Rate, Regular Rhythm GI/Abdominal Exam: Normal Bowel Sounds, Soft, Non-Tender, No Distention Extremities: Normal Inspection, Normal Capillary Refill Skin: Warm, Dry, Intact Sepsis Event Note - Evaluation Sepsis Screening Result: No Definite Risk - Focused Exam Vital Signs: Vital Signs Temp Resp BP Pulse Ox Pulse Ox 08/11/20 20:39 95 08/11/20 20:00 97.8 F 20 163/90 H 93 L 08/11/20 16:00 98.2 F 20 143/84 H 94 L 08/11/20 12:00 97.2 F 19 169/101 H 92 L - Problem List & Annotations (1) COPD exacerbation SNOMED Code(s): 548160877 Code(s): J44.1 - CHRONIC OBSTRUCTIVE PULMONARY DISEASE W (ACUTE) EXACERBATION Status: Acute Current Visit: Yes (2) Congestive heart failure SNOMED Code(s): 95709779 Code(s): I50.9 - HEART FAILURE, UNSPECIFIED Status: Acute Current Visit: Yes Qualifiers: Heart failure type: unspecified Heart failure chronicity: acute on chronic Qualified Code(s): I50.9 - Heart failure, unspecified (3) Hypercapnic acidosis SNOMED Code(s): 22641697 Code(s): E87.2 - ACIDOSIS Status: Acute Current Visit: Yes (4) Sacral fracture SNOMED Code(s): 776556146 Code(s): S32.10XA - UNSP FRACTURE OF SACRUM, INIT ENCNTR FOR CLOSED FRACTURE Status: Acute Current Visit: Yes Qualifiers: Encounter type: initial encounter Zone of sacrum fracture: unspecified portion of sacrum Fracture type: closed Qualified Code(s): S32.10XA - Unspecified fracture of sacrum, initial encounter for closed fracture (5) Urinary tract infection SNOMED Code(s): 69906362 Code(s): N39.0 - URINARY TRACT INFECTION, SITE NOT SPECIFIED Status: Acute Current Visit: Yes Qualifiers: Urinary tract infection type: site unspecified Hematuria presence: with hematuria Qualified Code(s): N39.0 - Urinary tract infection, site not sp ecified; R31.9 - Hematuria, unspecified - Problem List Review Problem List Initiated/Reviewed/Updated: Yes - My Orders Last 24 Hours: My Active Orders 08/11/20 13:28 Arterial Line Insertion [OM.PC] Routine 08/11/20 13:30 Sodium Chloride 0.9% [Normal Saline] 250 ml IV ASDIRECTED 08/11/20 13:58 Code Status [Resuscitation Status] Routine 08/11/20 21:23 Convert IV to Saline Lock [OM.PC] Routine 08/12/20 06:00 BLOOD GAS ARTERIAL [BG] Routine - Plan Plan:: Assessment 65-year-old female with history of coronary artery disease and congestive heart failure presents to the emergency department with increasing shortness of breath and dyspnea on exertion for 2 days. Exacerbation of CHF and COPD with severe hypercapnia * Patient increased her home O2 from 2 L/min to 3 L/min likely worsening her hypercapnia. * Significant increase in her respiratory rate. * White count 12,000 with left shift. * Chest x-ray with no significant infiltrate or edema, but significant for emphysema with bronchitis. * proBNP of 10,237 with known history of congestive heart failure. * Initial PCO2 above 80 with only slight improvement after starting BiPAP. * Initial pH low at 7.29 * No significant mental status changes. * Started on Rocephin in the emergency department and given Lasix IV * She is on Advair at home. Nondisplaced sacral fracture * Morphine 2 mg IV in the emergency department with good results. UTI * Patient denies any symptoms of urinary infection, but does have positive nitrites and 20-30 WBCs. * Urine culture sent in the emergency department * Blood cultures sent Acute renal injury versus chronic renal insufficiency * Estimated GFR 45, creatinine of 1.2. * Likely acute on chronic renal insufficiency secondary to intravascular depletion from her congestive heart failure. Tobaccoism * Patient states that occasionally she still has a cigarette. Otherwise she has stopped smoking. Plan * Admit to ICU on BiPAP * Monitor ABG as needed * Continue Rocephin * Follow blood cultures and urine culture * Increase Lasix to 40 mg IV twice daily * Echocardiogram in the morning * Solu-Medrol 125 mg x 1 then 40 mg every 6 hours starting the morning * DuoNeb every 6 hours * Albuterol nebulizer every 2 hours as needed * Morphine 2 mg IV every 2 hours as needed for pelvic pain. * Start physical therapy in 1 to 2 days. Improve oxygenation prior to starting physical therapy. * Continue BiPAP and titrate per ABGs. * Repeat labs in the morning and ABG * VTE prophylaxis with Lovenox * CODE STATUS: Full code 08/08/2020 55-year-old female with history of COPD and CHF with no significant change overnight. Patient continues on IV Lasix, Solu-Medrol, DuoNeb, and BiPAP. There was some issue with oxygen saturation inappropriately reading high and repeat blood gases have shown no significant changes except for a increase in her bicarb correcting the acidosis. PCO2 on repeat blood gas is still elevated at 82. Echocardiogram has been performed and pending. Renal function has also improved. Creatinine of 1.0 with estimated GFR greater than 60. Continue on Rocephin and BiPAP overnight. Recheck ABG as needed. 08/09/2020 Patient has had significant improvement. Her ventilation has improved. Her current pH is 7.44 with a PCO2 of 69. PO2 was 67 mmHg. Bicarb continues to be elevated at 45.6 on blood gas and 42 on serum reflecting a delay in the compensation from her hypercapnia. Renal function is stable with creatinine at 1.2. Hypomagnesemia and hypokalemia likely secondary to diuresis. Both of those will be corrected today. BNP at last night was increased to 16,000 and today it is 13,000. Overall patient is making significant improvements and should be able to tolerate periods of O2 via nasal cannula. When she sleeps she still needs to be on BiPAP. Continue on Rocephin for her UTI. Gram-negative rods are growing in her urine culture. Blood cultures continue to be negative. Continue Lasix 40 mg IV twice a day. Patient will also be started on spironolactone 25 mg daily. Continue on Solu-Medrol 40 mg every 6 hours today and decrease it to every 8 hours tomorrow. 08/10/2020 Respiratory status has worsened today with her most recent ABG: pH 7.35, PCO2 92.0, PO2 63, bicarb 49.5, on BiPAP settings of 20/12, FiO2 40%. This is an improvement over earlier blood gases that showed a PCO2 of 105. Patient is fully compensated for the respiratory acidosis. She was given 1 dose of acet azolamide 250 mg with minimal improvement in her bicarb. CTA of the chest was performed secondary to worsening hypoxemia, hypercarbia, and elevated D-dimer. Impression showed bilateral pulmonary effusions with moderate emphysema. There was some changes to the left breast noted and may be inflammatory or neoplastic. This will need to be followed up. Echocardiogram: Summary: 1. Low ventricular ejection fraction, by visual estimation, is 60 to 65%. 2. Right ventricular size is severely enlarged. 3. Severely reduced right ventricular systolic function. 4. Aortic valve is structurally normal and tricuspid 5. No aortic valve stenosis. 6. Mild aortic valve regurgitation. 7. Mild mitral valve regurgitation. 8. Mild to moderate tricuspid valve regurgitation. 9. The right ventricular systolic pressure is severely elevated at 75.2 mmHg. 10. No regional wall motion abnormalities. 11. "D-shaped" septal flattening consistent with pulmonary hypertension. Consider pulmonary embolism. (CTA ruled out pulmonary embolism) Plan: Patient will continue on BiPAP titrated to PCO2. Goal will be improved ventilation. Acetazolamide 250 mg IV will be given 1 additional time in the morning. Lasix will be held tomorrow morning to reduce the likelihood of hypotension and metabolic alkalosis. Long discussion with her and her niece today in regards to intubation. Patient only want to be intubated so she could stay alive long enough for her family to see her. Apparently, family is now in town. Patient does want to be intubated still if BiPAP fails. Routine labs in the morning. CODE STATUS remains full code, but she has a very poor prognosis. 08/11/2020 65-year-old female with severe COPD and oxygen dependent stabilized on BiPAP of 23/07. Ventilation has improved and PCO2 is in to the 70s. Second dose of acetazolamide given this morning. Afebrile with white count of 11,000 likely secondary to steroid effect and on Rocephin for UTI. Continue with Rocephin. Solu-Medrol 40 mg IV every 6 hours Hold diuretics at this time secondary to good systolic function and with severely reduced right ventricular systolic function may worsen hypotension.
[2020-08-12] MEDS: methylPREDNISolone Sodium Succinate 40 MG/1 ML SDV IVPUSH SCH ×4 (01:36→20:06)
[2020-08-12] MEDS: Albuterol/Ipratropium 3.0-0.5 MG/3 ML Neb Soln NEB SCH ×2 (06:03→21:16)
[2020-08-12] MEDS: Spironolactone 25 MG Tab PO SCH (09:30)
[2020-08-12] MEDS: Enoxaparin 40 MG/0.4 ML Syringe SUBCUT SCH (09:30)
[2020-08-12] MEDS: oxyCODONE 5 MG Tab PO PRN (10:00)
[2020-08-12] MEDS: Potassium Chloride 10 MEQ in Premix Bag 1 BAG IV SCH ×4 (11:35→16:41)
[2020-08-12] MEDS ORDERED: Benzocaine/Cetylpyridinium/Menthol Lozenge MUCMEM PRN (11:47)
--- NOTE | 2020-08-12 18:33 | PCM.PN ---
- General Info Date of Service: 08/12/20 Admission Dx/Problem (Free Text): Admission Diagnosis/Problem Admission Diagnosis/Problem Hypercapnia with mixed acid-base disorder Subjective Update: Patient is doing much better. She is tolerating the BiPAP well. Slept well. Her blood gas this morning continues to improve. Appetite is good. Still has not had a bowel movement. Functional Status: Reports: Pain Controlled - Review of Systems General: Reports: No Symptoms HEENT: Reports: No Symptoms Pulmonary: Reports: No Symptoms Cardiovascular: Reports: No Symptoms Musculoskeletal: Reports: No Symptoms - Patient Data Vitals - Most Recent: Last Vital Signs Temp 97.8 F 08/12/20 16:00 Pulse 79 08/12/20 00:00 Resp 19 08/12/20 16:00 BP 152/91 H 08/12/20 16:00 Pulse Ox 97 08/12/20 17:46 Weight - Most Recent: 173 lb 12.8 oz I&O - Last 24 Hours: Intake & Output 08/12/20 08/12/20 08/12/20 06:59 14:59 22:59 Intake Total 350 520 243 Output Total 240 205 100 Balance 110 315 143 Lab Results Last 24 Hours: Laboratory Results - last 24 hr 08/12/20 08/12/20 08/12/20 Range/Units 04:18 04:18 06:15 WBC 8.10 (3.98-10.04) K/mm3 RBC 4.77 (3.98-5.22) M/mm3 Hgb 11.4 (11.2-15.7) gm/dl Hct 42.3 (34.1-44.9) % MCV 88.7 (79.4-94.8) fl MCH 23.9 L (25.6-32.2) pg MCHC 27.0 L (32.2-35.5) g/dl RDW Std Deviation 66.5 H (36.4-46.3) fL Plt Count 142 L (182-369) K/mm3 MPV 10.2 (9.4-12.3) fl Neut % (Auto) 94.6 H (34.0-71.1) % Lymph % (Auto) 1.7 L (19.3-51.7) % [place] % (Auto) 3.5 L (4.7-12.5) % Eos % (Auto) 0 L (0.7-5.8) Baso % (Auto) 0.0 L (0.1-1.2) % Neut # (Auto) 7.66 H (1.56-6.13) K/mm3 Lymph # (Auto) 0.14 L (1.18-3.74) K/mm3 [place] # (Auto) 0.28 (0.24-0.36) K/mm3 Eos # (Auto) 0.00 L (0.04-0.36) K/mm3 Baso # (Auto) 0.00 L (0.01-0.08) K/mm3 Manual Slide Review Abnormal smear Puncture Site Lt radial ABG pH 7.40 (7.35-7.45) ABG pCO2 72.9 H* (35.0-45.0) mmHg ABG pO2 66.0 L (80.0-100.0) mmHg ABG HCO3 44.0 H (22.0-26.0) meq/L ABG O2 Saturation 92.4 L (96.0-97.0) % ABG Base Excess 16.2 H (-2-2.0) A-a Gradient 128 mmHg O2 Delivery Device Bipap FiO2 40.00 (21.00-100.00) % Blood Gas Comments Bipap 20/12 Sodium 141 (136-145) mEq/L Potassium 3.2 L (3.5-5.1) mEq/L Chloride 95 L (98-107) mEq/L Carbon Dioxide 41 H* (21-32) mEq/L Anion Gap 8.2 (5-15) BUN 23 H (7-18) mg/dL Creatinine 0.9 (0.55-1.02) mg/dL Est Cr Clr Drug Dosing 49.29 mL/min Estimated GFR (MDRD) > 60 (>60) mL/min BUN/Creatinine Ratio 25.6 H (14-18) Glucose 123 H (80-115) mg/dL Calcium 9.0 (8.5-10.1) mg/dL Phosphorus 3.1 (2.6-4.7) mg/dL Magnesium 2.0 (1.8-2.4) mg/dl Total Bilirubin 1.1 H (0.2-1.0) mg/dL AST 10 L (15-37) U/L ALT 11 L (14-59) U/L Alkaline Phosphatase 52 (46-116) U/L C-Reactive Protein <0.2 (<1.0) mg/dL Total Protein 6.7 (6.4-8.2) g/dl Albumin 3.4 (3.4-5.0) g/dl Globulin 3.3 gm/dL Albumin/Globulin Ratio 1.0 (1-2) [place] Results Last 24 Hours: Microbiology 08/07/20 22:17 Aerobic Blood Culture - Preliminary Blood - Venous - Lab Draw NO GROWTH AFTER 4 DAYS Anaerobic Blood Culture - Preliminary NO GROWTH AFTER 4 DAYS 08/07/20 22:32 Aerobic Blood Culture - Preliminary Blood - Venous NO GROWTH AFTER 4 DAYS Anaerobic Blood Culture - Preliminary NO GROWTH AFTER 4 DAYS Med Orders - Current: Current Medications Acetaminophen (Tylenol) 975 mg PO Q6H PRN PRN Reason: Pain Albuterol (Proventil Neb Soln) 2.5 mg NEB Q2H PRN PRN Reason: Shortness Of Breath/wheezing Albuterol/Ipratropium (Duoneb 3.0-0.5 Mg/3 Ml) 3 ml NEB BIDRT [facility] Last Admin: 08/12/20 06:03 Dose: 3 ml Documented by: Benzocaine/Menthol (Cepacol Sore Throat) 1 lozenge MUCMEM Q4H PRN PRN Reason: Sore Throat Enoxaparin Sodium (Lovenox) 40 mg SUBCUT DAILY [facility] Last Admin: 08/12/20 09:30 Dose: 40 mg Documented by: Ceftriaxone Sodium 1 gm/ (Sodium Chloride) 100 mls @ 200 mls/hr IV Q24H [facility] Last Admin: 08/11/20 21:56 Dose: 200 mls/hr Documented by: Methylprednisolone Sodium Succinate (Solu-Medrol) 40 mg IVPUSH Q12H [facility] Morphine Sulfate (Morphine) 2 mg IVPUSH Q2H PRN PRN Reason: Pain Last Admin: 08/11/20 15:06 Dose: 2 mg Documented by: Nystatin (Nystop) 1 gm TOP QID PRN PRN Reason: Itching Last Admin: 08/10/20 10:12 Dose: 1 applic Documented by: Ondansetron HCl (Zofran) 4 mg IV Q4H PRN PRN Reason: Nausea/Vomiting Last Admin: 08/10/20 08:52 Dose: 4 mg Documented by: Oxycodone HCl (Oxycodone) 10 mg PO Q4H PRN PRN Reason: Pain Last Admin: 08/12/20 10:00 Dose: 10 mg Documented by: Sodium Chloride (Saline Flush) 10 ml FLUSH ASDIRECTED PRN PRN Reason: Keep Vein Open Last Admin: 08/07/20 20:35 Dose: 10 ml Documented by: Spironolactone (Aldactone) 25 mg PO DAILY [facility] Last Admin: 08/12/20 09:30 Dose: 25 mg Documented by: Discontinued Medications Acetazolamide (Diamox) 250 mg IVPUSH ONETIME ONE Stop: 08/10/20 16:01 Last Admin: 08/10/20 16:38 Dose: 250 mg Documented by: Acetazolamide (Diamox) 250 mg IVPUSH ONETIME ONE Stop: 08/11/20 04:01 Last Admin: 08/11/20 03:49 Dose: 250 mg Documented by: Albuterol/Ipratropium (Duoneb 3.0-0.5 Mg/3 Ml) 3 ml NEB Q6HRRT [facility] Last Admin: 08/09/20 02:18 Dose: 3 ml Documented by: Bisacodyl (Dulcolax) 10 mg RECTAL ONETIME ONE Stop: 08/09/20 10:46 Last Admin: 08/09/20 12:44 Dose: Not Given Documented by: Bisacodyl (Dulcolax) 10 mg RECTAL ONETIME ONE Stop: 08/10/20 09:44 Last Admin: 08/10/20 10:12 Dose: 10 mg Documented by: Furosemide (Lasix) 40 mg IV ONETIME ONE Stop: 08/07/20 21:51 Last Admin: 08/07/20 21:56 Dose: 40 mg Documented by: Furosemide (Lasix) 40 mg IVPUSH BIDDIURETIC [facility] Last Admin: 08/09/20 06:16 Dose: 40 mg Documented by: Furosemide (Lasix) 40 mg IVPUSH BIDDIURETIC [facility] Last Admin: 08/10/20 13:53 Dose: 40 mg Documented by: Ceftriaxone Sodium 2 gm/ (Sodium Chloride) 100 mls @ 200 mls/hr IV ONETIME ONE Stop: 08/07/20 22:28 Last Admin: 08/07/20 22:39 Dose: 200 mls/hr Documented by: Magnesium Sulfate 4 gm/ Premix 50 mls @ 12.5 mls/hr IV ONETIME ONE Stop: 08/09/20 11:59 Last Admin: 08/09/20 08:09 Dose: 12.5 mls/hr Documented by: Sodium Chloride (Normal Saline) 100 mls @ 75 mls/hr IV ASDIRECTED [facility] Stop: 08/10/20 16:30 Last Admin: 08/10/20 14:17 Dose: 75 mls/hr Documented by: Potassium Chloride/Sodium Chloride (Normal Saline With 20 Meq Kcl) 1,000 mls @ 75 mls/hr IV ASDIRECTED [facility] Last Admin: 08/11/20 18:51 Dose: 75 mls/hr Documented by: Sodium Chloride (Normal Saline) 250 mls @ 10 mls/hr IV ASDIRECTED [facility] Sodium Chloride (Normal Saline) Confirm Administered Dose 500 mls @ as directed .ROUTE .STK-MED ONE Stop: 08/11/20 13:35 Last Admin: 08/11/20 13:58 Dose: Not Given Documented by: Potassium Chloride 10 meq/ (Premix) 100 mls @ 100 mls/hr IV Q1H [facility] Stop: 08/12/20 14:29 Last Admin: 08/12/20 16:41 Dose: 75 mls/hr Documented by: Influenza Virus Vaccine (Pharmacy To Dose - Influenza Vaccine) 1 each IM ONETIME ONE Stop: 08/08/20 00:15 Influenza Virus Vaccine (Fluzone High-Dose Quad 2020-21) 240 mcg IM .ONCE ONE Stop: 08/08/20 10:01 Last Admin: 08/11/20 22:38 Dose: Not Given Documented by: Iopamidol (Isovue-370 (76%)) 100 ml IVPUSH ONETIME ONE Stop: 08/10/20 13:58 Last Admin: 08/10/20 14:17 Dose: 100 ml Documented by: Magnesium Hydroxide (Milk Of Magnesia) 30 ml PO ONETIME ONE Stop: 08/10/20 09:23 Last Admin: 08/10/20 10:58 Dose: Not Given Documented by: Methylprednisolone Sodium Succinate (Solu-Medrol) 125 mg IVPUSH ONETIME ONE Stop: 08/07/20 23:32 Last Admin: 08/07/20 23:54 Dose: 125 mg Documented by: Methylprednisolone Sodium Succinate (Solu-Medrol) 40 mg IVPUSH Q6H [facility] Last Admin: 08/12/20 14:33 Dose: 40 mg Documented by: Metoclopramide HCl (Reglan) 5 mg IVPUSH ONETIME ONE Stop: 08/10/20 09:35 Last Admin: 08/10/20 09:56 Dose: 5 mg Documented by: Morphine Sulfate (Morphine) 2 mg IVPUSH ONETIME ONE Stop: 08/07/20 21:55 Last Admin: 08/07/20 22:02 Dose: 2 mg Documented by: Morphine Sulfate (Morphine) 2 mg IVPUSH Q2H PRN PRN Reason: Pain (severe 7-10) Stop: 08/08/20 23:29 Last Admin: 08/08/20 20:00 Dose: 2 mg Documented by: Potassium Chloride (Klor-Con M20) 40 meq PO ONETIME ONE Stop: 08/09/20 08:01 Last Admin: 08/09/20 08:08 Dose: 40 meq Documented by: Sodium Chloride (Saline Flush) 10 ml FLUSH ONETIME PRN PRN Reason: IV FLUSH Stop: 08/10/20 16:30 Last Admin: 08/10/20 14:17 Dose: 10 ml Documented by: - Exam Quality Assessment: Supplemental Oxygen, Urine Catheter General: Alert, Oriented HEENT: Pupils Equal, Mucous Membr. Moist/Blossom Neck: Supple Lungs: Normal Respiratory Effort, Crackles Cardiovascular: Regular Rate, Regular Rhythm GI/Abdominal Exam: Normal Bowel Sounds, Soft, Non-Tender, No Distention Extremities: Normal Inspection, Normal Range of Motion, Non-Tender, No Pedal Edema, Normal Capillary Refill Skin: Warm, Dry, Intact Psy/Mental Status: Alert, Normal Affect, Normal Mood Sepsis Event Note - Evaluation Sepsis Screening Result: No Definite Risk - Focused Exam Vital Signs: Vital Signs Temp Resp BP Pulse Ox Pulse Ox Pulse Ox 08/12/20 17:46 97 08/12/20 16:00 97.8 F 19 152/91 H 93 L 08/12/20 12:00 98.2 F 23 H 93 L 08/12/20 09:44 95 08/12/20 08:03 93 L 08/12/20 08:00 98.1 F 21 H 154/83 H 92 L - Problem List & Annotations (1) COPD exacerbation SNOMED Code(s): 487288298 Code(s): J44.1 - CHRONIC OBSTRUCTIVE PULMONARY DISEASE W (ACUTE) EXACERBATION Status: Acute Current Visit: Yes (2) Congestive heart failure SNOMED Code(s): 42095788 Code(s): I50.9 - HEART FAILURE, UNSPECIFIED Status: Acute Current Visit: Yes Qualifiers: Heart failure type: unspecified Heart failure chronicity: acute on chronic Qualified Code(s): I50.9 - Heart failure, unspecified (3) Hypercapnic acidosis SNOMED Code(s): 17887461 Code(s): E87.2 - ACIDOSIS Status: Acute Current Visit: Yes (4) Sacral fracture SNOMED Code(s): 966697895 Code(s): S32.10XA - UNSP FRACTURE OF SACRUM, INIT ENCNTR FOR CLOSED FRACTURE Status: Acute Current Visit: Yes Qualifiers: Encounter type: initial encounter Zone of sacrum fracture: unspecified portion of sacrum Fracture type: closed Qualified Code(s): S32.10XA - Unspecified fracture of sacrum, initial encounter for closed fracture (5) Urinary tract infection SNOMED Code(s): 44854202 Code(s): N39.0 - URINARY TRACT INFECTION, SITE NOT SPECIFIED Status: Acute Current Visit: Yes Qualifiers: Urinary tract infection type: site unspecified Hematuria presence: with hematuria Qualified Code(s): N39.0 - Urinary tract infection, site not specified; R31.9 - Hematuria, unspecified - Problem List Review Problem List Initiated/Reviewed/Updated: Yes - My Orders Last 24 Hours: My Active Orders 08/11/20 21:23 Convert IV to Saline Lock [OM.PC] Routine 08/12/20 11:47 Benzocaine/Cetylpyrd/Menthol [Cepacol Sore Throat] 1 lozenge MUCMEM Q4H PRN 08/12/20 21:00 methylPREDNISolone Sod Succ [Solu-MEDROL] 40 mg IVPUSH Q12H - Plan Plan:: Assessment 65-year-old female with history of coronary artery disease and congestive heart failure presents to the emergency department with increasing shortness of breath and dyspnea on exertion for 2 days. Exacerbation of CHF and COPD with severe hypercapnia * Patient increased her home O2 from 2 L/min to 3 L/min likely worsening her hypercapnia. * Significant increase in her respiratory rate. * White count 12,000 with left shift. * Chest x-ray with no significant infiltrate or edema, but significant for emphysema with bronchitis. * proBNP of 10,237 with known history of congestive heart failure. * Initial PCO2 above 80 with only slight improvement after starting BiPAP. * Initial pH low at 7.29 * No significant mental status changes. * Started on Rocephin in the emergency department and given Lasix IV * She is on Advair at home. Nondisplaced sacral fracture * Morphine 2 mg IV in the emergency department with good results. UTI * Patient denies any symptoms of urinary infection, but does have positive nitrites and 20-30 WBCs. * Urine culture sent in the emergency department * Blood cultures sent Acute renal injury versus chronic renal insufficiency * Estimated GFR 45, creatinine of 1.2. * Likely acute on chronic renal insufficiency secondary to intravascular depletion from her congestive heart failure. Tobaccoism * Patient states that occasionally she still has a cigarette. Otherwise she has stopped smoking. Plan * Admit to ICU on BiPAP * Monitor ABG as needed * Continue Rocephin * Follow blood cultures and urine culture * Increase Lasix to 40 mg IV twice daily * Echocardiogram in the morning * Solu-Medrol 125 mg x 1 then 40 mg every 6 hours starting the morning * DuoNeb every 6 hours * Albuterol nebulizer every 2 hours as needed * Morphine 2 mg IV every 2 hours as needed for pelvic pain. * Start physical therapy in 1 to 2 days. Improve oxygenation prior to starting physical therapy. * Continue BiPAP and titrate per ABGs. * Repeat labs in the morning and ABG * VTE prophylaxis with Lovenox * CODE STATUS: Full code 08/08/2020 65-year-old female with history of COPD and CHF with no significant change overnight. Patient continues on IV Lasix, Solu-Medrol, DuoNeb, and BiPAP. There was some issue with oxygen saturation inappropriately reading high and repeat blood gases have shown no significant changes except for a increase in her bicarb correcting the acidosis. PCO2 on repeat blood gas is still elevated at 82. Echocardiogram has been performed and pending. Renal function has also improved. Creatinine of 1.0 with estimated GFR greater than 60. Continue on Rocephin and BiPAP overnight. Recheck ABG as needed. 08/09/2020 Patient has had significant improvement. Her ventilation has improved. Her current pH is 7.44 with a PCO2 of 69. PO2 was 67 mmHg. Bicarb continues to be elevated at 45.6 on blood gas and 42 on serum reflecting a delay in the compensation from her hypercapnia. Renal function is stable with creatinine at 1.2. Hypomagnesemia and hypokalemia likely secondary to diuresis. Both of those will be corrected today. BNP at last night was increased to 16,000 and today it is 13,000. Overall patient is making significant improvements and should be able to tolerate periods of O2 via nasal cannula. When she sleeps she still needs to be on BiPAP. Continue on Rocephin for her UTI. Gram-negative rods are growing in her urine culture. Blood cultures continue to be negative. Continue Lasix 40 mg IV twice a day. Patient will also be started on spironolactone 25 mg daily. Continue on Solu-Medrol 40 mg every 6 hours today and decrease it to every 8 hours tomorrow. 08/10/2020 Respiratory status has worsened today with her most recent ABG: pH 7.35, PCO2 92.0, PO2 63, bicarb 49.5, on BiPAP settings of 20/12, FiO2 40%. This is an improvement over earlier blood gases that showed a PCO2 of 105. Patient is fully compensated for the respiratory acidosis. She was given 1 dose of acetazolamide 250 mg with minimal improvement in her bicarb. CTA of the chest was performed secondary to worsening hypoxemia, hypercarbia, and elevated D-dimer. Impression showed bilateral pulmonary effusions with moderate emphysema. There was some changes to the left breast noted and may be inflammatory or neoplastic. This will need to be followed up. Echocardiogram: Summary: 1. Low ventricular ejection fraction, by visual estimation, is 60 to 65%. 2. Right ventricular size is severely enlarged. 3. Severely reduced right ventricular systolic function. 4. Aortic valve is structurally normal and tricuspid 5. No aortic valve stenosis. 6. Mild aortic valve regurgitation. 7. Mild mitral valve regurgitation. 8. Mild to moderate tricuspid valve regurgitation. 9. The right ventricular systolic pressure is severely elevated at 75.2 mmHg. 10. No regional wall motion abnormalities. 11. "D-shaped" septal flattening consistent with pulmonary hypertension. Consider pulmonary embolism. (CTA ruled out pulmonary embolism) Plan: Patient will continue on BiPAP titrated to PCO2. Goal will be improved ventilation. Acetazolamide 250 mg IV will be given 1 additional time in the morning. Lasix will be held tomorrow morning to reduce the likelihood of hypotension and metabolic alkalosis. Long discussion with her and her niece today in regards to intubation. Patient only want to be intubated so she could stay alive long enough for her family to see her. Apparently, family is now in town. Patient does want to be intubated still if BiPAP fails. Routine labs in the morning. CODE STATUS remains full code, but she has a very poor prognosis. 08/11/2020 65-year-old female with severe COPD and oxygen dependent stabilized on BiPAP of 23/07. Ventilation has improved and PCO2 is in to the 70s. Second dose of acetazolamide given this morning. Afebrile with white count of 11,000 likely secondary to steroid effect and on Rocephin for UTI. Continue with Rocephin. Solu-Medrol 40 mg IV every 6 hours Hold diuretics at this time secondary to good systolic function and with severely reduced right ventricular systolic function may worsen hypotension. 08/12/2020 65-year-old female with history of coronary artery disease and congestive heart failure presents to the emergency department with increasing shortness of breath and dyspnea on exertion for 2 days there to admission. Exacerbation of CHF and COPD with severe hypercapnia Patient continues to improve. Blood gas is significantly better: pH of 7.40, PCO2 of 73, bicarb of 44, and PO2 of 66. She is tolerating BiPAP well. Plan for patient to continue with BiPAP today and assuming that blood gas continues to improve with lowering PCO2 and bicarb she will likely be able to move back to her nasal cannula O2. Decrease Solu-Medrol to 40mg to 12 hours. Last dose of Rocephin tonight Nondisplaced sacral fracture Pain is improving Physical therapy consulted Will require home health at time of discharge. Face to Face meeting with pt and or family. Pt has Hypercapnia with mixed acid- base disorder, sacral fracture, COPD and CHF. Pt is in need Home Health Care services for; low activity tolerance, functional mobility, standing balance, strength, transfers. Nursing for pain management, vitals, skilled assessment, medication education, disease education and disease management. Physical therapy for pt for gait training, neuromuscular reduction, therapeutic exercises, safety education and transfer training. Occupational therapy for activity tolerance, self-care training, ADLs and t/f training. Pt is currently homebound related to being walker dependent, decreased activity tolerance, and a decreased level of endurance. Pt will be followed by her primary provider, Belkys Quevedo. UTI E. coli pansensitive Last dose of Rocephin tonight. Acute renal injury resolved
[2020-08-12] MEDS: cefTRIAXone 1 GM in Sodium Chloride 0.9% 100 ML IV SCH (20:07)
[2020-08-13] MEDS: oxyCODONE 5 MG Tab PO PRN ×5 (02:30→22:14)
[2020-08-13] MEDS: Albuterol/Ipratropium 3.0-0.5 MG/3 ML Neb Soln NEB SCH ×2 (06:11→21:13)
--- NOTE | 2020-08-13 08:00 | PCM.PN ---
- General Info Date of Service: 08/13/20 Admission Dx/Problem (Free Text): Admission Diagnosis/Problem Admission Diagnosis/Problem Hypercapnia with mixed acid-base disorder Subjective Update: No overnight or acute issues. She slept good last night and feels better this AM. Her blood gas continues to improve. Her blood cultures are negative. Her UA grew E.coli. Functional Status: Reports: Pain Controlled, Tolerating Diet, Ambulating, Urinat ing - Review of Systems General: Denies: Fever, Chills HEENT: Reports: No Symptoms Pulmonary: Reports: Shortness of Breath Cardiovascular: Reports: Palpitations. Denies: Chest Pain, Dyspnea on Exertion Gastrointestinal: Denies: Abdominal Pain, Nausea, Vomiting Musculoskeletal: Denies: Joint Pain Skin: Reports: Bruising. Denies: Cyanosis Neurological: Denies: Dizziness, Syncope Psychiatric: Denies: Depression, Anxiety - Patient Data Vitals - Most Recent: Last Vital Signs Temp 36.1 C 08/13/20 04:00 Pulse 82 08/13/20 04:38 Resp 19 08/13/20 04:00 BP 163/97 H 08/13/20 04:38 Pulse Ox 93 L 08/13/20 06:12 Weight - Most Recent: 79.379 kg I&O - Last 24 Hours: Intake & Output 08/12/20 08/13/20 08/13/20 22:59 06:59 14:59 Intake Total 243 300 Output Total 235 310 Balance 8 -10 Lab Results Last 24 Hours: Laboratory Results - last 24 hr 08/13/20 08/13/20 08/13/20 Range/Units 04:50 04:50 07:28 WBC 10.35 H (3.98-10.04) K/mm3 RBC 5.01 (3.98-5.22) M/mm3 Hgb 12.1 (11.2-15.7) gm/dl Hct 43.8 (34.1-44.9) % MCV 87.4 (79.4-94.8) fl MCH 24.2 L (25.6-32.2) pg MCHC 27.6 L (32.2-35.5) g/dl RDW Std Deviation 65.3 H (36.4-46.3) fL Plt Count 128 L (182-369) K/mm3 MPV 10.5 (9.4-12.3) fl Neut % (Auto) 94.8 H (34.0-71.1) % Lymph % (Auto) 2.6 L (19.3-51.7) % [place] % (Auto) 2.4 L (4.7-12.5) % Eos % (Auto) 0 L (0.7-5.8) Baso % (Auto) 0.0 L (0.1-1.2) % Neut # (Auto) 9.81 H (1.56-6.13) K/mm3 Lymph # (Auto) 0.27 L (1.18-3.74) K/mm3 [place] # (Auto) 0.25 (0.24-0.36) K/mm3 Eos # (Auto) 0.00 L (0.04-0.36) K/mm3 Baso # (Auto) 0.00 L (0.01-0.08) K/mm3 Manual Slide Review Abnormal smear Puncture Site Lt radial ABG pH 7.44 (7.35-7.45) ABG pCO2 62.1 H (35.0-45.0) mmHg ABG pO2 81.0 (80.0-100.0) mmHg ABG HCO3 41.6 H (22.0-26.0) meq/L ABG O2 Saturation 95.5 L (96.0-97.0) % ABG Base Excess 14.9 H (-2-2.0) Anil Test Positive A-a Gradient 127 mmHg O2 Delivery Device Bipap FiO2 40.00 (21.00-100.00) % Blood Gas Comments /12 Sodium 141 (136-145) mEq/L Potassium 3.8 (3.5-5.1) mEq/L Chloride 96 L (98-107) mEq/L Carbon Dioxide 40 H (21-32) mEq/L Anion Gap 8.8 (5-15) BUN 28 H (7-18) mg/dL Creatinine 1.0 (0.55-1.02) mg/dL Est Cr Clr Drug Dosing 44.36 mL/min Estimated GFR (MDRD) 56 (>60) mL/min BUN/Creatinine Ratio 28.0 H (14-18) Glucose 140 H (80-115) mg/dL Calcium 9.2 (8.5-10.1) mg/dL Phosphorus 3.2 (2.6-4.7) mg/dL Magnesium 2.0 (1.8-2.4) mg/dl Total Bilirubin 1.1 H (0.2-1.0) mg/dL AST 16 (15-37) U/L ALT 18 (14-59) U/L Alkaline Phosphatase 54 (46-116) U/L Total Protein 6.7 (6.4-8.2) g/dl Albumin 3.5 (3.4-5.0) g/dl Globulin 3.2 gm/dL Albumin/Globulin Ratio 1.1 (1-2) [place] Results Last 24 Hours: Microbiology 08/07/20 22:17 Aerobic Blood Culture - Preliminary Blood - Venous - Lab Draw NO GROWTH AFTER 5 DAYS Anaerobic Blood Culture - Preliminary NO GROWTH AFTER 5 DAYS 08/07/20 22:32 Aerobic Blood Culture - Preliminary Blood - Venous NO GROWTH AFTER 5 DAYS Anaerobic Blood Culture - Preliminary NO GROWTH AFTER 5 DAYS Med Orders - Current: Current Medications Acetaminophen (Tylenol) 975 mg PO Q6H PRN PRN Reason: Pain Albuterol (Proventil Neb Soln) 2.5 mg NEB Q2H PRN PRN Reason: Shortness Of Breath/wheezing Albuterol/Ipratropium (Duoneb 3.0-0.5 Mg/3 Ml) 3 ml NEB BIDRT [facility] Last Admin: 08/13/20 06:11 Dose: 3 ml Documented by: Benzocaine/Menthol (Cepacol Sore Throat) 1 lozenge MUCMEM Q4H PRN PRN Reason: Sore Throat Enoxaparin Sodium (Lovenox) 40 mg SUBCUT DAILY [facility] Last Admin: 08/12/20 09:30 Dose: 40 mg Documented by: Ceftriaxone Sodium 1 gm/ (Sodium Chloride) 100 mls @ 200 mls/hr IV Q24H [facility] Last Admin: 08/12/20 20:07 Dose: 200 mls/hr Documented by: Methylprednisolone Sodium Succinate (Solu-Medrol) 40 mg IVPUSH Q12H [facility] Last Admin: 08/12/20 20:06 Dose: 40 mg Documented by: Morphine Sulfate (Morphine) 2 mg IVPUSH Q2H PRN PRN Reason: Pain Last Admin: 08/11/20 15:06 Dose: 2 mg Documented by: Nystatin (Nystop) 1 gm TOP QID PRN PRN Reason: Itching Last Admin: 08/10/20 10:12 Dose: 1 applic Documented by: Ondansetron HCl (Zofran) 4 mg IV Q4H PRN PRN Reason: Nausea/Vomiting Last Admin: 08/10/20 08:52 Dose: 4 mg Documented by: Oxycodone HCl (Oxycodone) 10 mg PO Q4H PRN PRN Reason: Pain Last Admin: 08/13/20 02:30 Dose: 10 mg Documented by: Sodium Chloride (Saline Flush) 10 ml FLUSH ASDIRECTED PRN PRN Reason: Keep Vein Open Last Admin: 08/07/20 20:35 Dose: 10 ml Documented by: Spironolactone (Aldactone) 25 mg PO DAILY [facility] Last Admin: 08/12/20 09:30 Dose: 25 mg Documented by: Discontinued Medications Acetazolamide (Diamox) 250 mg IVPUSH ONETIME ONE Stop: 08/10/20 16:01 Last Admin: 08/10/20 16:38 Dose: 250 mg Documented by: Acetazolamide (Diamox) 250 mg IVPUSH ONETIME ONE Stop: 08/11/20 04:01 Last Admin: 08/11/20 03:49 Dose: 250 mg Documented by: Albuterol/Ipratropium (Duoneb 3.0-0.5 Mg/3 Ml) 3 ml NEB Q6HRRT [facility] Last Admin: 08/09/20 02:18 Dose: 3 ml Documented by: Bisacodyl (Dulcolax) 10 mg RECTAL ONETIME ONE Stop: 08/09/20 10:46 Last Admin: 08/09/20 12:44 Dose: Not Given Documented by: Bisacodyl (Dulcolax) 10 mg RECTAL ONETIME ONE Stop: 08/10/20 09:44 Last Admin: 08/10/20 10:12 Dose: 10 mg Documented by: Furosemide (Lasix) 40 mg IV ONETIME ONE Stop: 08/07/20 21:51 Last Admin: 08/07/20 21:56 Dose: 40 mg Documented by: Furosemide (Lasix) 40 mg IVPUSH BIDDIURETIC [facility] Last Admin: 08/09/20 06:16 Dose: 40 mg Documented by: Furosemide (Lasix) 40 mg IVPUSH BIDDIURETIC [facility] Last Admin: 08/10/20 13:53 Dose: 40 mg Documented by: Ceftriaxone Sodium 2 gm/ (Sodium Chloride) 100 mls @ 200 mls/hr IV ONETIME ONE Stop: 08/07/20 22:28 Last Admin: 08/07/20 22:39 Dose: 200 mls/hr Documented by: Ceftriaxone Sodium 1 gm/ (Sodium Chloride) 100 mls @ 200 mls/hr IV Q24H [facility] Last Admin: 08/11/20 21:56 Dose: 200 mls/hr Documented by: Magnesium Sulfate 4 gm/ Premix 50 mls @ 12.5 mls/hr IV ONETIME ONE Stop: 08/09/20 11:59 Last Admin: 08/09/20 08:09 Dose: 12.5 mls/hr Documented by: Sodium Chloride (Normal Saline) 100 mls @ 75 mls/hr IV ASDIRECTED [facility] Stop: 08/10/20 16:30 Last Admin: 08/10/20 14:17 Dose: 75 mls/hr Documented by: Potassium Chloride/Sodium Chloride (Normal Saline With 20 Meq Kcl) 1,000 mls @ 75 mls/hr IV ASDIRECTED [facility] Last Admin: 08/11/20 18:51 Dose: 75 mls/hr Documented by: Sodium Chloride (Normal Saline) 250 mls @ 10 mls/hr IV ASDIRECTED [facility] Sodium Chloride (Normal Saline) Confirm Administered Dose 500 mls @ as directed .ROUTE .STK-MED ONE Stop: 08/11/20 13:35 Last Admin: 08/11/20 13:58 Dose: Not Given Documented by: Potassium Chloride 10 meq/ (Premix) 100 mls @ 100 mls/hr IV Q1H [facility] Stop: 08/12/20 14:29 Last Admin: 08/12/20 16:41 Dose: 75 mls/hr Documented by: Influenza Virus Vaccine (Pharmacy To Dose - Influenza Vaccine) 1 each IM ONETIME ONE Stop: 08/08/20 00:15 Influenza Virus Vaccine (Fluzone High-Dose Quad ) 240 mcg IM .ONCE ONE Stop: 08/08/20 10:01 Last Admin: 08/11/20 22:38 Dose: Not Given Documented by: Iopamidol (Isovue-370 (76%)) 100 ml IVPUSH ONETIME ONE Stop: 08/10/20 13:58 Last Admin: 08/10/20 14:17 Dose: 100 ml Documented by: Magnesium Hydroxide (Milk Of Magnesia) 30 ml PO ONETIME ONE Stop: 08/10/20 09:23 Last Admin: 08/10/20 10:58 Dose: Not Given Documented by: Methylprednisolone Sodium Succinate (Solu-Medrol) 125 mg IVPUSH ONETIME ONE Stop: 08/07/20 23:32 Last Admin: 08/07/20 23:54 Dose: 125 mg Documented by: Methylprednisolone Sodium Succinate (Solu-Medrol) 40 mg IVPUSH Q6H [facility] Last Admin: 08/12/20 14:33 Dose: 40 mg Documented by: Metoclopramide HCl (Reglan) 5 mg IVPUSH ONETIME ONE Stop: 08/10/20 09:35 Last Admin: 08/10/20 09:56 Dose: 5 mg Documented by: Morphine Sulfate (Morphine) 2 mg IVPUSH ONETIME ONE Stop: 08/07/20 21:55 Last Admin: 08/07/20 22:02 Dose: 2 mg Documented by: Morphine Sulfate (Morphine) 2 mg IVPUSH Q2H PRN PRN Reason: Pain (severe 7-10) Stop: 08/08/20 23:29 Last Admin: 08/08/20 20:00 Dose: 2 mg Documented by: Potassium Chloride (Klor-Con M20) 40 meq PO ONETIME ONE Stop: 08/09/20 08:01 Last Admin: 08/09/20 08:08 Dose: 40 meq Documented by: Sodium Chloride (Saline Flush) 10 ml FLUSH ONETIME PRN PRN Reason: IV FLUSH Stop: 08/10/20 16:30 Last Admin: 08/10/20 14:17 Dose: 10 ml Documented by: - Exam Quality Assessment: Supplemental Oxygen (with BIPAP), DVT Prophylaxis General: Alert, Oriented, Cooperative, No Acute Distress HEENT: Pupils Equal, Pupils Reactive, EOMI Neck: Supple Lungs: Clear to Auscultation, Normal Respiratory Effort, Other (good aeration) Cardiovascular: Regular Rate, Regular Rhythm GI/Abdominal Exam: Normal Bowel Sounds, Soft, Non-Tender, No Organomegaly, No Distention, No Abnormal Bruit, No Mass (Female) Exam: Deferred Back Exam: Normal Inspection, Decreased Range of Motion Extremities: Normal Inspection, Normal Range of Motion, Non-Tender, Slow Capillary Refill, Other (lower extremity pitting edema 1+). No: Pedal Edema Peripheral Pulses: 1+: Dorsalis Pedis (L), Dorsalis Pedis (R) Skin: Warm, Dry, Intact Neurological: No New Focal Deficit Psy/Mental Status: Alert, Normal Affect, Normal Mood Sepsis Event Note - Evaluation Sepsis Screening Result: No Definite Risk - Focused Exam Vital Signs: Vital Signs Temp Pulse Resp BP BP Pulse Ox Pulse Ox 08/13/20 06:12 93 L 08/13/20 04:38 82 163/97 H 08/13/20 04:15 81 165/105 H 08/13/20 04:00 36.1 C 83 19 170/105 H 95 08/12/20 23:37 36.1 C 75 160/92 H 08/12/20 21:17 93 L 08/12/20 20:00 36.2 C 79 24 H 152/91 H 97 - Problem List Review Problem List Initiated/Reviewed/Updated: Yes - Assessment Assessment:: Assessment 65-year-old female with history of coronary artery disease and congestive heart failure presents to the emergency department with increasing shortness of breath and dyspnea on exertion for 2 days. Exacerbation of CHF and (Advanced) COPD with hypoxic and severe hypercapnia * Patient increased her home O2 from 2 L/min to 3 L/min likely worsening her hypercapnia. * Significant increase in her respiratory rate. * White count 12,000 with left shift. * Chest x-ray with no significant infiltrate or edema, but significant for emphysema with bronchitis. * proBNP of 10,237 with known history of congestive heart failure. * Initial PCO2 above 80 with only slight improvement after starting BiPAP. * Initial pH low at 7.29. * No significant mental status changes. * Started on Rocephin in the emergency department and given Lasix IV * She is on Advair at home. * Patient continues to improve. Blood gas is significantly better: pH of 7.40, PCO2 of 73, bicarb of 44, and PO2 of 66. She is tolerating BiPAP well. Plan for patient to continue with BiPAP today and assuming that blood gas continues to improve with lowering PCO2 and bicarb she will likely be able to move back to her nasal cannula O2. Decrease Solu-Medrol to 40mg to 12 hours. Last dose of Rocephin tonight * 08/10/2020: Echocardiogram: Summary: 1. Low ventricular ejection fraction, by visual estimation, is 60 to 65%. 2. Right ventricular size is severely enlarged. 3. Severely reduced right ventricular systolic function. 4. Aortic valve is structurally normal and tricuspid 5. No aortic valve stenosis. 6. Mild aortic valve regurgitation. 7. Mild mitral valve regurgitation. 8. Mild to moderate tricuspid valve regurgitation. 9. The right ventricular systolic pressure is severely elevated at 75.2 mmHg. 10. No regional wall motion abnormalities. 11. "D-shaped" septal flattening consistent with pulmonary hyperte nsion. Consider pulmonary embolism. (CTA ruled out pulmonary embolism) * Hs underlying pulmonary hypertension with severely elevated RVSP of 75.2 mmHg. Nondisplaced sacral fracture, stable * Morphine 2 mg IV in the emergency department with good results. * Pain has improved. * Physical therapy consulted. * Will require home health at time of discharge. * Continue PRN pain medication. UTI * UA shows E. Coli. * Patient denies any symptoms of urinary infection, but does have positive nitrites and 20-30 WBCs. * Urine culture sent in the emergency department. * Blood cultures negative. * Rocephin last dose was last night. Acute renal injury versus chronic renal insufficiency, resolved * Estimated GFR 45, creatinine of 1.2. * Likely acute on chronic renal insufficiency secondary to intravascular depletion from her congestive heart failure. Tobaccoism * Patient states that occasionally she still has a cigarette. Otherwise she has stopped smoking. * Has chantix and nicotine gum for home use. Mild Leukocytosis * Secondary to steroid use. Hypokalemia, resolved * Likely from renal loss due to diuretic. * K is 3.8. * Will replete and monitor. Hyperglycemia * Carries a hx/o per-Diabetes. * She is on Metformin per niece. * BS is fairly controlled. * Will monitor. Mildly Elevated Total Bilirubin * T. Bili of 1.1. * Stable. * Will monitor. Elevated Liver Enzymes, resolved * CTA noted "small amount of fluid around the right lobe of the liver". * Liver enzymes now back to baseline. * Will monitor. Small Bilateral Pleural Effusions and Mild Atelectasis within the Left Lung Base * Likely from underlying CHF. * IS as directed. * Continue heart failure regimen. Acute on chronic Hypercapnea * Has advanced COPD. * Does not follow a lung doctor per niece. * CO2 has been improving. * Renal panel is at baseline * May benefit with diamox at least for 2 days. Accelerated Hypertension * Carries a hx/o it per niece. * She used to be on ACEI but was discontinued due to adverse reaction (hyperkalemia). * She is currently on aldactone, carvedilol, and lasix. * BS 150s-170s systolic and 80s-105s. * PRN Hydralazine Q6H PRN. * Resume home dose lasix. Status Post Fall - Plan Plan:: Plan: 08/07/2020 * Admit to ICU on BiPAP * Monitor ABG as needed * Continue Rocephin * Follow blood cultures and urine culture * Increase Lasix to 40 mg IV twice daily * Echocardiogram in the morning * Solu-Medrol 125 mg x 1 then 40 mg every 6 hours starting the morning * DuoNeb every 6 hours * Albuterol nebulizer every 2 hours as needed * Morphine 2 mg IV every 2 hours as needed for pelvic pain. * Start physical therapy in 1 to 2 days. Improve oxygenation prior to starting physical therapy. * Continue BiPAP and titrate per ABGs. * Repeat labs in the morning and ABG * VTE prophylaxis with Lovenox * CODE STATUS: Full code 08/08/2020 65-year-old female with history of COPD and CHF with no significant change overnight. Patient continues on IV Lasix, Solu-Medrol, DuoNeb, and BiPAP. There was some issue with oxygen saturation inappropriately reading high and repeat blood gases have shown no significant changes except for a increase in her bicarb correcting the acidosis. PCO2 on repeat blood gas is still elevated at 82. Echocardiogram has been performed and pending. Renal function has also improved. Creatinine of 1.0 with estimated GFR greater than 60. Continue on Rocephin and BiPAP overnight. Recheck ABG as needed. 08/09/2020 Patient has had significant improvement. Her ventilation has improved. Her current pH is 7.44 with a PCO2 of 69. PO2 was 67 mmHg. Bicarb continues to be elevated at 45.6 on blood gas and 42 on serum reflecting a delay in the compensation from her hypercapnia. Renal function is stable with creatinine at 1.2. Hypomagnesemia and hypokalemia likely secondary to diuresis. Both of those will be corrected today. BNP at last night was increased to 16,000 and today it is 13,000. Overall patient is making significant improvements and should be able to tolerate periods of O2 via nasal cannula. When she sleeps she still needs to be on BiPAP. Continue on Rocephin for her UTI. Gram-negative rods are growing in her urine culture. Blood cultures continue to be negative. Continue Lasix 40 mg IV twice a day. Patient will also be started on spironolactone 25 mg daily. Continue on Solu-Medrol 40 mg every 6 hours today and decrease it to every 8 hours tomorrow. 08/10/2020 Respiratory status has worsened today with her most recent ABG: pH 7.35, PCO2 92.0, PO2 63, bicarb 49.5, on BiPAP settings of 20/12, FiO2 40%. This is an improvement over earlier blood gases that showed a PCO2 of 105. Patient is fully compensated for the respiratory acidosis. She was given 1 dose of acetazolamide 250 mg with minimal improvement in her bicarb. CTA of the chest was performed secondary to worsening hypoxemia, hypercarbia, and elevated D-dimer. Impression showed bilateral pulmonary effusions with moderate emphysema. There was some changes to the left breast noted and may be inflammatory or neoplastic. This will need to be followed up. Echocardiogram: Summary: 1. Low ventricular ejection fraction, by visual estimation, is 60 to 65%. 2. Right ventricular size is severely enlarged. 3. Severely reduced right ventricular systolic function. 4. Aortic valve is structurally normal and tricuspid 5. No aortic valve stenosis. 6. Mild aortic valve regurgitation. 7. Mild mitral valve regurgitation. 8. Mild to moderate tricuspid valve regurgitation. 9. The right ventricular systolic pressure is severely elevated at 75.2 mmHg. 10. No regional wall motion abnormalities. 11. "D-shaped" septal flattening consistent with pulmonary hypertension. Consider pulmonary embolism. (CTA ruled out pulmonary embolism) Plan: Patient will continue on BiPAP titrated to PCO2. Goal will be improved ventilation. Acetazolamide 250 mg IV will be given 1 additional time in the morning. Lasix will be held tomorrow morning to reduce the likelihood of hypotension and metabolic alkalosis. Long discussion with her and her niece today in regards to intubation. Patient only want to be intubated so she could stay alive long enough for her family to see her. Apparently, family is now in town. Patient does want to be intubated still if BiPAP fails. Routine labs in the morning. CODE STATUS remains full code, but she has a very poor prognosis. 08/11/2020 65-year-old female with severe COPD and oxygen dependent stabilized on BiPAP of 20/12. Ventilation has improved and PCO2 is in to the 70s. Second dose of acetazolamide given this morning. Afebrile with white count of 11,000 likely secondary to steroid effect and on Rocephin for UTI. Continue with Rocephin. Solu-Medrol 40 mg IV every 6 hours Hold diuretics at this time secondary to good systolic function and with severely reduced right ventricular systolic function may worsen hypotension. 08/12/2020 65-year-old female with history of coronary artery disease and congestive heart failure presents to the emergency department with increasing shortness of breath and dyspnea on exertion for 2 days there to admission. Exacerbation of CHF and COPD with severe hypercapnia Patient continues to improve. Blood gas is significantly better: pH of 7.40, PCO2 of 73, bicarb of 44, and PO2 of 66. She is tolerating BiPAP well. Plan for patient to continue with BiPAP today and assuming that blood gas continues to improve with lowering PCO2 and bicarb she will likely be able to move back to her nasal cannula O2. Decrease Solu-Medrol to 40mg to 12 hours. Last dose of Rocephin tonight Nondisplaced sacral fracture Pain is improving Physical therapy consulted Will require home health at time of discharge. Face to Face meeting with pt and or family. Pt has Hypercapnia with mixed acid- base disorder, sacral fracture, COPD and CHF. Pt is in need Home Health Care services for; low activity tolerance, functional mobility, standing balance, strength, transfers. Nursing for pain management, vitals, skilled assessment, medication education, disease education and disease management. Physical therapy for pt for gait training, neuromuscular reduction, therapeutic exercises, safety education and transfer training. Occupational therapy for activity tolerance, self-care training, ADLs and t/f training. Pt is currently homebound related to being walker dependent, decreased activity tolerance, and a decreased level of endurance. Pt will be followed by her primary provider, Belkys Quevedo. UTI E. coli pansensitive Last dose of Rocephin tonight. Acute renal injury resolved 08/13/2020 * She appears to be clinically improving * Her serial ABGs has shown significant improvement * Will give a rial of high flow and keep O2 sat at higher than 89% * PRN BIPAP/V60 23/07 * Discontinue Rocephin * Restart home dose lasix fo 20 mg po daily along with aldactone 25 mg po daily * Resume home dose chantix * Echocardiogram in the morning * Solu-Medrol now 40 mg IVP BID * DuoNeb BIDRT * Diamox for 2 days * Albuterol nebulizer every 2 hours as needed * Morphine 2 mg IV every 2 hours as needed for severe pelvic pain * Consider PT/OT in AM * Ambulate as tolerated * Repeat labs in the morning and ABG * VTE prophylaxis with Lovenox * CODE STATUS: DNR/DNI 1206: Patient desatting while sleeping/resting, O2 sat in the 70s. We will switch back V60 23/07.
[2020-08-13] MEDS: methylPREDNISolone Sodium Succinate 40 MG/1 ML SDV IVPUSH SCH ×2 (08:17→22:13)
[2020-08-13] MEDS: Spironolactone 25 MG Tab PO SCH (08:17)
[2020-08-13] MEDS: Enoxaparin 40 MG/0.4 ML Syringe SUBCUT SCH (08:17)
[2020-08-13] MEDS ORDERED: hydrALAZINE 20 MG/ML SDV IVPUSH PRN (10:23)
[2020-08-13] MEDS ORDERED: acetaZOLAMIDE 500 MG Vial IVPUSH ONE (10:26)
[2020-08-13] MEDS ORDERED: acetaZOLAMIDE 250 MG Tab PO ONE (11:08)
[2020-08-13] MEDS: Formoterol/Mometasone 200-5 MCG 8.8 GM Inhaler IH SCH ×2 (21:14→22:30)
[2020-08-13] MEDS: Carvedilol 12.5 MG Tab PO SCH (22:13)
[2020-08-13] MEDS: acetaZOLAMIDE 250 MG Tab PO SCH (22:13)
[2020-08-14] MEDS: cefTRIAXone 1 GM in Sodium Chloride 0.9% 100 ML IV SCH (02:06)
--- NOTE | 2020-08-14 08:08 | PCM.PN ---
- General Info Date of Service: 08/14/20 Admission Dx/Problem (Free Text): Admission Diagnosis/Problem Admission Diagnosis/Problem Hypercapnia with mixed acid-base disorder Subjective Update: She rested well overnight and states she feels much better. She is now back on supplemental O2. Her BPs have been controlled. She has no acute issues. Functional Status: Reports: Pain Controlled, Tolerating Diet, Urinating - Review of Systems General: Denies: Fever, Chills HEENT: Denies: Contact Lenses, Headaches Pulmonary: Reports: Shortness of Breath, Cough Cardiovascular: Denies: Chest Pain Gastrointestinal: Denies: Abdominal Pain, Nausea, Vomiting Genitourinary: Denies: Frequency Musculoskeletal: Denies: Joint Pain Skin: Reports: Bruising Neurological: Denies: Confusion Psychiatric: Denies: Confusion, Anxiety - Patient Data Vitals - Most Recent: Last Vital Signs Temp 36.0 C L 08/14/20 04:00 Pulse 75 08/13/20 22:13 Resp 15 08/14/20 04:00 BP 150/81 H 08/14/20 04:00 Pulse Ox 94 L 08/14/20 04:00 Weight - Most Recent: 79.379 kg I&O - Last 24 Hours: Intake & Output 08/13/20 08/14/20 08/14/20 22:59 06:59 14:59 Intake Total 200 200 Output Total 375 470 Balance -175 -270 Martinez Results Last 24 Hours: Microbiology 08/07/20 22:17 Aerobic Blood Culture - Preliminary Blood - Venous - Lab Draw NO GROWTH AFTER 6 DAYS Anaerobic Blood Culture - Preliminary NO GROWTH AFTER 6 DAYS 08/07/20 22:32 Aerobic Blood Culture - Preliminary Blood - Venous NO GROWTH AFTER 6 DAYS Anaerobic Blood Culture - Preliminary NO GROWTH AFTER 6 DAYS Med Orders - Current: Current Medications Acetaminophen (Tylenol) 975 mg PO Q6H PRN PRN Reason: Pain Acetazolamide (Diamox) 250 mg PO BID [facility] Stop: 08/15/20 21:01 Last Admin: 08/13/20 22:13 Dose: 250 mg Documented by: Albuterol (Proventil Neb Soln) 2.5 mg NEB Q2H PRN PRN Reason: Shortness Of Breath/wheezing Albuterol/Ipratropium (Duoneb 3.0-0.5 Mg/3 Ml) 3 ml NEB BID [facility] Aspirin (Aspirin) 81 mg PO DAILY [facility] Benzocaine/Menthol (Cepacol Sore Throat) 1 lozenge MUCMEM Q4H PRN PRN Reason: Sore Throat Carvedilol (Coreg) 12.5 mg PO BID [facility] Last Admin: 08/13/20 22:13 Dose: 12.5 mg Documented by: Enoxaparin Sodium (Lovenox) 40 mg SUBCUT DAILY [facility] Last Admin: 08/13/20 08:17 Dose: 40 mg Documented by: Furosemide (Lasix) 20 mg PO DAILY [facility] Hydralazine HCl (Apresoline) 20 mg IVPUSH Q4H PRN PRN Reason: Hypertension Last Admin: 08/13/20 17:32 Dose: 20 mg Documented by: Methylprednisolone Sodium Succinate (Solu-Medrol) 40 mg IVPUSH Q12H [facility] Last Admin: 08/13/20 22:13 Dose: 40 mg Documented by: Mometasone Furoate/Formoterol Fumar (Dulera 200-5 Mcg) 2 puff IH BID [facility] Last Admin: 08/13/20 22:30 Dose: 2 puff Documented by: Morphine Sulfate (Morphine) 2 mg IVPUSH Q2H PRN PRN Reason: Pain Last Admin: 08/11/20 15:06 Dose: 2 mg Documented by: Non-Formulary Medication (Metformin) 1,000 mg PO DAILY [facility] Nystatin (Nystop) 1 gm TOP QID PRN PRN Reason: Itching Last Admin: 08/10/20 10:12 Dose: 1 applic Documented by: Ondansetron HCl (Zofran) 4 mg IV Q4H PRN PRN Reason: Nausea/Vomiting Last Admin: 08/10/20 08:52 Dose: 4 mg Documented by: Oxycodone HCl (Oxycodone) 10 mg PO Q4H PRN PRN Reason: Pain Last Admin: 08/13/20 22:14 Dose: 10 mg Documented by: Simvastatin (Zocor) 20 mg PO BEDTIME [facility] Sodium Chloride (Saline Flush) 10 ml FLUSH ASDIRECTED PRN PRN Reason: Keep Vein Open Last Admin: 08/07/20 20:35 Dose: 10 ml Documented by: Spironolactone (Aldactone) 25 mg PO DAILY [facility] Last Admin: 08/13/20 08:17 Dose: 25 mg Documented by: Discontinued Medications Acetazolamide (Diamox) 250 mg IVPUSH ONETIME ONE Stop: 08/10/20 16:01 Last Admin: 08/10/20 16:38 Dose: 250 mg Documented by: Acetazolamide (Diamox) 250 mg IVPUSH ONETIME ONE Stop: 08/11/20 04:01 Last Admin: 08/11/20 03:49 Dose: 250 mg Documented by: Acetazolamide (Diamox) 250 mg IVPUSH ONETIME ONE Stop: 08/13/20 10:27 Last Admin: 08/13/20 11:10 Dose: Not Given Documented by: Acetazolamide (Diamox) 250 mg PO ONETIME ONE Stop: 08/13/20 11:09 Last Admin: 08/13/20 11:42 Dose: 250 mg Documented by: Albuterol/Ipratropium (Duoneb 3.0-0.5 Mg/3 Ml) 3 ml NEB Q6HRRT [facility] Last Admin: 08/09/20 02:18 Dose: 3 ml Documented by: Albuterol/Ipratropium (Duoneb 3.0-0.5 Mg/3 Ml) 3 ml NEB BIDRT [facility] Last Admin: 08/13/20 21:13 Dose: 3 ml Documented by: Bisacodyl (Dulcolax) 10 mg RECTAL ONETIME ONE Stop: 08/09/20 10:46 Last Admin: 08/09/20 12:44 Dose: Not Given Documented by: Bisacodyl (Dulcolax) 10 mg RECTAL ONETIME ONE Stop: 08/10/20 09:44 Last Admin: 08/10/20 10:12 Dose: 10 mg Documented by: Furosemide (Lasix) 40 mg IV ONETIME ONE Stop: 08/07/20 21:51 Last Admin: 08/07/20 21:56 Dose: 40 mg Documented by: Furosemide (Lasix) 40 mg IVPUSH BIDDIURETIC [facility] Last Admin: 08/09/20 06:16 Dose: 40 mg Documented by: Furosemide (Lasix) 40 mg IVPUSH BIDDIURETIC [facility]ESSI Last Admin: 08/10/20 13:53 Dose: 40 mg Documented by: Ceftriaxone Sodium 2 gm/ (Sodium Chloride) 100 mls @ 200 mls/hr IV ONETIME ONE Stop: 08/07/20 22:28 Last Admin: 08/07/20 22:39 Dose: 200 mls/hr Documented by: Ceftriaxone Sodium 1 gm/ (Sodium Chloride) 100 mls @ 200 mls/hr IV Q24H [facility] Last Admin: 08/11/20 21:56 Dose: 200 mls/hr Documented by: Magnesium Sulfate 4 gm/ Premix 50 mls @ 12.5 mls/hr IV ONETIME ONE Stop: 08/09/20 11:59 Last Admin: 08/09/20 08:09 Dose: 12.5 mls/hr Documented by: Sodium Chloride (Normal Saline) 100 mls @ 75 mls/hr IV ASDIRECTED [facility] Stop: 08/10/20 16:30 Last Admin: 08/10/20 14:17 Dose: 75 mls/hr Documented by: Potassium Chloride/Sodium Chloride (Normal Saline With 20 Meq Kcl) 1,000 mls @ 75 mls/hr IV ASDIRECTED [facility] Last Admin: 08/11/20 18:51 Dose: 75 mls/hr Documented by: Sodium Chloride (Normal Saline) 250 mls @ 10 mls/hr IV ASDIRECTED [facility] Sodium Chloride (Normal Saline) Confirm Administered Dose 500 mls @ as directed .ROUTE .STK-MED ONE Stop: 08/11/20 13:35 Last Admin: 08/11/20 13:58 Dose: Not Given Documented by: Potassium Chloride 10 meq/ (Premix) 100 mls @ 100 mls/hr IV Q1H [facility] Stop: 08/12/20 14:29 Last Admin: 08/12/20 16:41 Dose: 75 mls/hr Documented by: Ceftriaxone Sodium 1 gm/ (Sodium Chloride) 100 mls @ 200 mls/hr IV Q24H [facility] Last Admin: 08/14/20 02:06 Dose: Not Given Documented by: Influenza Virus Vaccine (Pharmacy To Dose - Influenza Vaccine) 1 each IM ONETIME ONE Stop: 08/08/20 00:15 Influenza Virus Vaccine (Fluzone High-Dose Quad 2019-) 240 mcg IM .ONCE ONE Stop: 08/08/20 10:01 Last Admin: 08/11/20 22:38 Dose: Not Given Documented by: Iopamidol (Isovue-370 (76%)) 100 ml IVPUSH ONETIME ONE Stop: 08/10/20 13:58 Last Admin: 08/10/20 14:17 Dose: 100 ml Documented by: Magnesium Hydroxide (Milk Of Magnesia) 30 ml PO ONETIME ONE Stop: 08/10/20 09:23 Last Admin: 08/10/20 10:58 Dose: Not Given Documented by: Methylprednisolone Sodium Succinate (Solu-Medrol) 125 mg IVPUSH ONETIME ONE Stop: 08/07/20 23:32 Last Admin: 08/07/20 23:54 Dose: 125 mg Documented by: Methylprednisolone Sodium Succinate (Solu-Medrol) 40 mg IVPUSH Q6H [facility] Last Admin: 08/12/20 14:33 Dose: 40 mg Documented by: Metoclopramide HCl (Reglan) 5 mg IVPUSH ONETIME ONE Stop: 08/10/20 09:35 Last Admin: 08/10/20 09:56 Dose: 5 mg Documented by: Morphine Sulfate (Morphine) 2 mg IVPUSH ONETIME ONE Stop: 08/07/20 21:55 Last Admin: 08/07/20 22:02 Dose: 2 mg Documented by: Morphine Sulfate (Morphine) 2 mg IVPUSH Q2H PRN PRN Reason: Pain (severe 7-10) Stop: 08/08/20 23:29 Last Admin: 08/08/20 20:00 Dose: 2 mg Documented by: Non-Formulary Medication (Varenicline Tartrate [Chantix]) 1 mg PO DAILY [facility] Potassium Chloride (Klor-Con M20) 40 meq PO ONETIME ONE Stop: 08/09/20 08:01 Last Admin: 08/09/20 08:08 Dose: 40 meq Documented by: Sodium Chloride (Saline Flush) 10 ml FLUSH ONETIME PRN PRN Reason: IV FLUSH Stop: 08/10/20 16:30 Last Admin: 08/10/20 14:17 Dose: 10 ml Documented by: - Exam Quality Assessment: Supplemental Oxygen General: Alert, Oriented, Cooperative, No Acute Distress HEENT: Pupils Equal, Pupils Reactive, EOMI, Mucous Membr. Moist/[place] Neck: Supple Lungs: Normal Respiratory Effort, Decreased Breath Sounds Cardiovascular: Regular Rate, Regular Rhythm GI/Abdominal Exam: Normal Bowel Sounds, Soft, Non-Tender, No Organomegaly (Female) Exam: Deferred Back Exam: Normal Inspection, Decreased Range of Motion Extremities: Normal Inspection, Normal Range of Motion, Non-Tender, No Pedal Edema Peripheral Pulses: 2+: Dorsalis Pedis (L), Dorsalis Pedis (R) Skin: Warm, Dry, Intact, Ecchymosis, Other (noted multiple body tattoos) Neurological: No New Focal Deficit, Normal Gait Psy/Mental Status: Alert, Normal Affect, Normal Mood Sepsis Event Note - Evaluation Sepsis Screening Result: No Definite Risk - Focused Exam Vital Signs: Vital Signs Temp Pulse Resp BP BP Pulse Ox Pulse Ox 08/14/20 04:00 36.0 C L 15 150/81 H 94 L 08/14/20 00:30 93 L 08/14/20 00:00 36.3 C 17 140/80 91 L 08/13/20 22:31 08/13/20 22:13 75 140/74 08/13/20 21:16 94 L Pulse Ox 08/14/20 04:00 08/14/20 00:30 08/14/20 00:00 08/13/20 22:31 91 L 08/13/20 22:13 08/13/20 21:16 - Problem List Review Problem List Initiated/Reviewed/Updated: Yes - My Orders Last 24 Hours: My Active Orders 08/13/20 10:23 hydrALAZINE [Apresoline] 20 mg IVPUSH Q4H PRN 08/13/20 21:00 Mometasone/Formoterol [Dulera 200-5 MCG] 2 puff IH BID acetaZOLAMIDE [Diamox] 250 mg PO BID carvediloL [Coreg] 12.5 mg PO BID 08/14/20 09:00 Aspirin 81 mg PO DAILY Furosemide [Lasix] 20 mg PO DAILY metFORMIN 1,000 mg PO DAILY 08/14/20 21:00 Simvastatin [Zocor] 20 mg PO BEDTIME - Assessment Assessment:: Assessment 65-year-old female with history of coronary artery disease and congestive heart failure presents to the emergency department with increasing shortness of breath and dyspnea on exertion for 2 days. Exacerbation of CHF and (Advanced) COPD with hypoxic and severe hypercapnia * Patient increased her home O2 from 2 L/min to 3 L/min likely worsening her hypercapnia. * Significant increase in her respiratory rate. * White count 12,000 with left shift. * Chest x-ray with no significant infiltrate or edema, but significant for emphysema with bronchitis. * proBNP of 10,237 with known history of congestive heart failure. * Initial PCO2 above 80 with only slight improvement after starting BiPAP. * Initial pH low at 7.29. * No significant mental status changes. * Started on Rocephin in the emergency department and given Lasix IV. * She is on Advair at home. * Patient continues to improve. Blood gas is significantly better: pH of 7.40, PCO2 of 73, bicarb of 44, and PO2 of 66. She is tolerating BiPAP well. Plan for patient to continue with BiPAP today and assuming that blood gas continues to improve with lowering PCO2 and bicarb she will likely be able to move back to her nasal cannula O2. Decrease Solu-Medrol to 40mg to 12 hours. Last dose of Rocephin tonight. * 08/10/2020: Echocardiogram: Summary: 1. Low ventricular ejection fraction, by visual estimation, is 60 to 65%. 2. Right ventricular size is severely enlarged. 3. Severely reduced right ventricular systolic function. 4. Aortic valve is structurally normal and tricuspid 5. No aortic valve stenosis. 6. Mild aortic valve regurgitation. 7. Mild mitral valve regurgitation. 8. Mild to moderate tricuspid valve regurgitation. 9. The right ventricular systolic pressure is severely elevated at 75.2 mmHg. 10. No regional wall motion abnormalities. 11. "D-shaped" septal flattening consistent with pulmonary hypertension. Consider pulmonary embolism. (CTA ruled out pulmonary embolism) * Hs underlying pulmonary hypertension with severely elevated RVSP of 75.2 mmHg. * She breathes and feels better. * Now back to supplemental O2: She is normally on 2 to 2.5 L continuous use Nondisplaced sacral fracture, stable * Morphine 2 mg IV in the emergency department with good results. * Pain has improved. * Physical therapy consulted. * Will require home health at time of discharge. * Continue PRN pain medication. UTI * UA shows E. Coli. * Patient denies any symptoms of urinary infection, but does have positive nitrites and 20-30 WBCs. * Urine culture sent in the emergency department. * Blood cultures negative. * Rocephin last dose was 2 nights ago. Acute renal injury versus chronic renal insufficiency, resolved * Estimated GFR 45, creatinine of 1.2. * Likely acute on chronic renal insufficiency secondary to intravascular depletion from her congestive heart failure. Tobaccoism * Patient states that occasionally she still has a cigarette. Otherwise she has stopped smoking. * She is on chantix and nicotine gum for home smoking cessation. Mild Leukocytosis * Secondary to steroid use. Hypokalemia * Likely from renal loss due to diuretic. * K is 3.8. * Will replete and monitor. Hyperglycemia, improved * Carries a hx/o per-Diabetes. * She is on Metformin per niece. * BS is fairly controlled. * Will monitor. Mildly Elevated Total Bilirubin * T. Bili of 1.1. * Stable. * Will monitor. Elevated Liver Enzymes, resolved * CTA noted "small amount of fluid around the right lobe of the liver". * Liver enzymes now back to baseline. * Will monitor. Small Bilateral Pleural Effusions and Mild Atelectasis within the Left Lung Base * Likely from underlying CHF. * IS as directed. * Continue heart failure regimen. Acute on chronic Hypercapnea * Has advanced COPD. * Does not follow a lung doctor per niece. * CO2 has been improving. * Renal panel is at baseline. * May benefit with diamox at least for 2 days. Accelerated Hypertension, resolved * Carries a hx/o it per niece. * She used to be on ACEI but was discontinues due to adverse reaction (hyperkalemia). * She is currently on aldactone, carvedilol, and lasix for maintenance medications. * BS 150s-170s systolic and 80s-105s. * PRN Hydralazine Q6H PRN. * Resume home dose lasix. Status Post Fall Prominent Edema within Soft Tissue of the Left Breast: Inflammatory vs Neoplastic * Chest CTA abnormal finding * Patient had a recent fall fracturing her sacrum * Left breast shows no obvious trauma * Can be followed outpatient - Plan Plan:: Plan: 08/07/2020 * Admit to ICU on BiPAP * Monitor ABG as needed * Continue Rocephin * Follow blood cultures and urine culture * Increase Lasix to 40 mg IV twice daily * Echocardiogram in the morning * Solu-Medrol 125 mg x 1 then 40 mg every 6 hours starting the morning * DuoNeb every 6 hours * Albuterol nebulizer every 2 hours as needed * Morphine 2 mg IV every 2 hours as needed for pelvic pain. * Start physical therapy in 1 to 2 days. Improve oxygenation prior to starting physical therapy. * Continue BiPAP and titrate per ABGs. * Repeat labs in the morning and ABG * VTE prophylaxis with Lovenox * CODE STATUS: Full code 08/08/2020 65-year-old female with history of COPD and CHF with no significant change overnight. Patient continues on IV Lasix, Solu-Medrol, DuoNeb, and BiPAP. There was some issue with oxygen saturation inappropriately reading high and repeat blood gases have shown no significant changes except for a increase in her bicarb correcting the acidosis. PCO2 on repeat blood gas is still elevated at 82. Echocardiogram has been performed and pending. Renal function has also improved. Creatinine of 1.0 with estimated GFR greater than 60. Continue on Rocephin and BiPAP overnight. Recheck ABG as needed. 08/09/2020 Patient has had significant improvement. Her ventilation has improved. Her current pH is 7.44 with a PCO2 of 69. PO2 was 67 mmHg. Bicarb continues to be elevated at 45.6 on blood gas and 42 on serum reflecting a delay in the compe nsation from her hypercapnia. Renal function is stable with creatinine at 1.2. Hypomagnesemia and hypokalemia likely secondary to diuresis. Both of those will be corrected today. BNP at last night was increased to 16,000 and today it is 13,000. Overall patient is making significant improvements and should be able to tolerate periods of O2 via nasal cannula. When she sleeps she still needs to be on BiPAP. Continue on Rocephin for her UTI. Gram-negative rods are growing in her urine culture. Blood cultures continue to be negative. Continue Lasix 40 mg IV twice a day. Patient will also be started on spironolactone 25 mg daily. Continue on Solu-Medrol 40 mg every 6 hours today and decrease it to every 8 hours tomorrow. 08/10/2020 Respiratory status has worsened today with her most recent ABG: pH 7.35, PCO2 92.0, PO2 63, bicarb 49.5, on BiPAP settings of 20/12, FiO2 40%. This is an improvement over earlier blood gases that showed a PCO2 of 105. Patient is fully compensated for the respiratory acidosis. She was given 1 dose of acetazolamide 250 mg with minimal improvement in her bicarb. CTA of the chest was performed secondary to worsening hypoxemia, hypercarbia, and elevated D-dimer. Impression showed bilateral pulmonary effusions with moderate emphysema. There was some changes to the left breast noted and may be inflammatory or neoplastic. This will need to be followed up. Echocardiogram: Summary: 1. Low ventricular ejection fraction, by visual estimation, is 60 to 65%. 2. Right ventricular size is severely enlarged. 3. Severely reduced right ventricular systolic function. 4. Aortic valve is structurally normal and tricuspid 5. No aortic valve stenosis. 6. Mild aortic valve regurgitation. 7. Mild mitral valve regurgitation. 8. Mild to moderate tricuspid valve regurgitation. 9. The right ventricular systolic pressure is severely elevated at 75.2 mmHg. 10. No regional wall motion abnormalities. 11. "D-shaped" septal flattening consistent with pulmonary hypertension. Consider pulmonary embolism. (CTA ruled out pulmonary embolism) Plan: Patient will continue on BiPAP titrated to PCO2. Goal will be improved ventilation. Acetazolamide 250 mg IV will be given 1 additional time in the morning. Lasix will be held tomorrow morning to reduce the likelihood of hypotension and metabolic alkalosis. Long discussion with her and her niece today in regards to intubation. Patient only want to be intubated so she could stay alive long enough for her family to see her. Apparently, family is now in town. Patient does want to be intubated still if BiPAP fails. Routine labs in the morning. CODE STATUS remains full code, but she has a very poor prognosis. 08/11/2020 65-year-old female with severe COPD and oxygen dependent stabilized on BiPAP of 20/12. Ventilation has improved and PCO2 is in to the 70s. Second dose of acetazolamide given this morning. Afebrile with white count of 11,000 likely secondary to steroid effect and on Rocephin for UTI. Continue with Rocephin. Solu-Medrol 40 mg IV every 6 hours Hold diuretics at this time secondary to good systolic function and with severely reduced right ventricular systolic function may worsen hypotension. 08/12/2020 65-year-old female with history of coronary artery disease and congestive heart failure presents to the emergency department with increasing shortness of breath and dyspnea on exertion for 2 days there to admission. Exacerbation of CHF and COPD with severe hypercapnia Patient continues to improve. Blood gas is significantly better: pH of 7.40, PCO2 of 73, bicarb of 44, and PO2 of 66. She is tolerating BiPAP well. Plan for patient to continue with BiPAP today and assuming that blood gas continues to improve with lowering PCO2 and bicarb she will likely be able to move back to her nasal cannula O2. Decrease Solu-Medrol to 40mg to 12 hours. Last dose of Rocephin tonight Nondisplaced sacral fracture Pain is improving Physical therapy consulted Will require home health at time of discharge. Face to Face meeting with pt and or family. Pt has Hypercapnia with mixed acid- base disorder, sacral fracture, COPD and CHF. Pt is in need Home Health Care services for; low activity tolerance, functional mobility, standing balance, strength, transfers. Nursing for pain management, vitals, skilled assessment, medication education, disease education and disease management. Physical therapy for pt for gait training, neuromuscular reduction, therapeutic exercises, safety education and transfer training. Occupational therapy for activity tolerance, self-care training, ADLs and t/f training. Pt is currently homebound related to being walker dependent, decreased activity tolerance, and a decreased level of endurance. Pt will be followed by her primary provider, Belkys Quevedo. UTI E. coli pansensitive Last dose of Rocephin tonight. Acute renal injury resolved 08/13/2020 * She appears to be clinically improving * Her serial ABGs has shown significant improvement * Will give a rial of high flow and keep O2 sat at higher than 89% * PRN BIPAP/V60 20/12 * Discontinue Rocephin * Restart home dose lasix fo 20 mg po daily along with aldactone 25 mg po daily * Resume home dose chantix * Echocardiogram in the morning * Solu-Medrol now 40 mg IVP BID * DuoNeb BIDRT * Diamox for 2 days * Albuterol nebulizer every 2 hours as needed * Morphine 2 mg IV every 2 hours as needed for severe pelvic pain * Consider PT/OT in AM * Ambulate as tolerated * Repeat labs in the morning and ABG * VTE prophylaxis with Lovenox * CODE STATUS: DNR/DNI 1206: Patient desaturating while sleeping/resting, O2 sat in the 70s. We will switch back V60 20/12. 08/14/2020 * She is way much better clinically this AM * Transfer to [facility] with Tele * Routine AM Labs * PRN BIPAP/V60 20/12 with 40% FiO2 at night and during nap * Continue home dose lasix fo 20 mg po daily along with aldactone 25 mg po daily * Solu-Medrol now 40 mg IVP BID * DuoNeb BIDRT * Diamox for 2 days * Albuterol nebulizer every 2 hours as needed * Morphine 2 mg IV every 2 hours as needed for severe pelvic pain * PT/OT today * Ambulate as tolerated * Will qualify her for BIPAP home use * Repeat labs in the morning and ABG as indicated * VTE prophylaxis with Lovenox * CODE STATUS: DNR/DNI * Possible discharge in AM with [facility]
[2020-08-14] MEDS: Furosemide 20 MG Tab PO SCH (08:24)
[2020-08-14] MEDS: Enoxaparin 40 MG/0.4 ML Syringe SUBCUT SCH (08:24)
[2020-08-14] MEDS: Carvedilol 12.5 MG Tab PO SCH ×2 (08:24→20:28)
[2020-08-14] MEDS: Spironolactone 25 MG Tab PO SCH (08:24)
[2020-08-14] MEDS: Aspirin 81 MG Tab.Chew PO SCH (08:25)
[2020-08-14] MEDS: acetaZOLAMIDE 250 MG Tab PO SCH ×2 (08:25→20:29)
[2020-08-14] MEDS: methylPREDNISolone Sodium Succinate 40 MG/1 ML SDV IVPUSH SCH ×2 (08:25→20:30)
[2020-08-14] MEDS: Formoterol/Mometasone 200-5 MCG 8.8 GM Inhaler IH SCH ×2 (08:56→20:08)
[2020-08-14] MEDS: Albuterol/Ipratropium 3.0-0.5 MG/3 ML Neb Soln NEB SCH ×2 (08:57→20:06)
[2020-08-14] MEDS ORDERED: Non-Formulary Medication 1 Each (Varenicline Tartrate [Chantix] 1 MG) PO SCH (09:00)
[2020-08-14] MEDS: oxyCODONE 5 MG Tab PO PRN ×2 (15:21→20:30)
[2020-08-14] MEDS: metFORMIN 500 MG Tab PO SCH (17:40)
[2020-08-14] MEDS ORDERED: Simvastatin 20 MG Tab PO SCH (21:00)
[2020-08-15] MEDS ORDERED: Magnesium Hydroxide 400 MG/5 ML Susp 30 ML Cup PO ONE (06:00)
[2020-08-15] MEDS: metFORMIN 500 MG Tab PO SCH (06:06)
[2020-08-15] MEDS: Albuterol/Ipratropium 3.0-0.5 MG/3 ML Neb Soln NEB SCH (07:59)
[2020-08-15] MEDS: Formoterol/Mometasone 200-5 MCG 8.8 GM Inhaler IH SCH (07:59)
--- NOTE | 2020-08-15 08:20 | PCM.DCSUM1 ---
Discharge Summary - Hospital Course Brief History: This is a 65 yo white female with past medical hx/o Advanced COPD, Hx/o Smoking Abuse, HTN, HLD, HF with Unknown EF, Impaired Vision and Obesity who was admited for worsening shortness of bretah associated with dyspnea on exertion as well as wet cough adn was diagnosed primarily with COPD Exacerbation. - Discharge Data Discharge Date: 08/15/20 Discharge Disposition: Home, W Home Health Agency 06 Condition: Stable - Referral to Home Health Date of Face to Face Encounter: 08/15/20 Reason for Homebound Status: Pt has Hypercapnia with mixed acid-base disorder, sacral fracture, COPD and CHF. Pt is in need Home Health Care services for; low activity tolerance, functional mobility, standing balance, strength, transfers. Nursing for pain management, vitals, skilled assessment, medication education, disease education and disease management. Physical therapy for pt for gait training, neuromuscular reduction, therapeutic exercises, safety education and transfer training. Occupational therapy for activity tolerance, self-care training, ADLs and t/f training. Pt is currently homebound related to being walker dependent, decreased activity tolerance, and a decreased level of endurance. Pt will be followed by her primary provider, Belkys Quevedo. Primary Care Physician: SCOT Rodriguez Skilled Need: Nursing, PT and OT - Patient Summary/Data Operative Procedure(s) Performed: None Complications: None Consults: Consultations 08/09/20 14:24 PT Evaluation and Treatment [CONS] Routine 08/09/20 14:25 OT Evaluation and Treatment [CONS] Routine Labs Pending at D/C: Vitamin D level Recommended Follow-up Testing/Procedures: Dexan scan if not already done Hospital Course: Patient was admitted primarily for for treatment of COPD Exacerbation. She received intravenous steroids/antibiotic as well as bronchodilators and she improved on this regimen. Her hypercapnea eventually improved with the use of diamox and non-invasive ventilation. Her hospital course was moderately complicated by mild acute congestive heart failure likely from her underlying pulmonary disease (pulmonary hypertension), urinary tract infection as well an abnormal findings of non surgical sacral fracture after a recent fall. She did however improve with treatment provided to include intravenous antibiotic, heart failure regimen, and narcotics for pain control. The rest of her chronic medical illness remained stable during this admission. On discharge, additional measures for smoking cessation was offered but patient refused it. She still got chantix and nicotine gum for home use. She was strongly advised to quit smoking permanently and will be going home on BIPAP. We recommend Vit D level as well as Dexa scan if not already done and a follow up with ortho in 1-2 weeks after discharge if she continues to have sacral pain. - Patient Instructions Diet: Usual Diet as Tolerated Activity: As Tolerated Driving: Do Not Drive Showering/Bathing: May Shower Notify Provider of: Fever, Increased Pain, Swelling and Redness - Discharge Plan *PRESCRIPTION DRUG MONITORING PROGRAM REVIEWED*: Not Applicable *COPY OF PRESCRIPTION DRUG MONITORING REPORT IN PATIENT MONIQUE: Not Applicable Prescriptions/Med Rec: methylPREDNISolone [Medrol Dose Pack] 4 mg PO ASDIRECTED #1 dospk Azithromycin [Zithromax] 250 mg PO ASDIRECTED #5 tab Tobacco Cessation Medication: Prescription Refused Home Medications: Home Meds Albuterol [Ventolin HFA] 2 puff INH Q4H PRN 08/07/20 [History] Fluticasone Propion/Salmeterol [Advair Hfa 230-21 Mcg Inhaler] 1 puff IH BID 08/07/20 [History] Furosemide [Lasix] 20 mg PO DAILY 08/07/20 [History] Aspirin 81 mg PO DAILY 08/13/20 [History] Varenicline Tartrate [Chantix] 1 mg PO DAILY 08/13/20 [History] atorvaSTATin [Lipitor] 20 mg PO DAILY 08/13/20 [History] carvediloL [Carvedilol] 12.5 mg PO BID 08/13/20 [History] metFORMIN [Glucophage XR] 1,000 mg PO DAILY 08/13/20 [History] Azithromycin [Zithromax] 250 mg PO ASDIRECTED #5 tab 08/15/20 [Rx] methylPREDNISolone [Medrol Dose Pack] 4 mg PO ASDIRECTED #1 dospk 08/15/20 [Rx] Oxygen Therapy Mode: BiPAP (23/07 with 4.5L NC) Patient Handouts: Chronic Obstructive Pulmonary Disease Exacerbation, Eas y-to-Read, Heart-Healthy Eating Plan, Nwpo-lj-[id number], Heart Failure Action Plan, Urinary Tract Infection, Adult, Heart Failure, Diagnosis, Steps to Quit Smoking, Hypertension, Adult Referrals: Belkys Quevedo PA-C [Primary Care Provider] - 08/23/20 11:15 am (Hospital follow-up appointment.) - Discharge Summary/Plan Comment DC Time >30 min.: Yes Discharge Summary/Plan Comment: Discharge to Home with [facility]. She refused smoking cessation. She already has chantix as well as nicotine gum for treatment. - General Info Date of Service: 08/15/20 Admission Dx/Problem (Free Text: Admission Diagnosis/Problem Admission Diagnosis/Problem Hypercapnia with mixed acid-base disorder Subjective Update: No significant overnight or acute issues. Sh estates she feels great this morning and ready to go home. Functional Status: Reports: Pain Controlled, Tolerating Diet, Ambulating, Urinating. Denies: New Symptoms - Review of Systems General: Denies: Fever, Chills HEENT: Denies: Headaches, Sore Throat Pulmonary: Reports: Shortness of Breath, Cough Cardiovascular: Denies: Chest Pain, Edema, Lightheadedness Gastrointestinal: Denies: Abdominal Pain, Nausea, Vomiting Genitourinary: Denies: Incontinence Musculoskeletal: Denies: Joint Pain Skin: Reports: Bruising. Denies: Jaundice Neurological: Denies: Confusion Psychiatric: Denies: Depression, Anxiety - Patient Data Vitals - Most Recent: Last Vital Signs Temp 36.4 C 08/15/20 07:52 Pulse 83 08/15/20 07:55 Resp 14 08/15/20 07:52 BP 104/56 L 08/15/20 07:52 Pulse Ox 91 L 08/15/20 07:59 Weight - Most Recent: 78.426 kg I&O - Last 24 hours: Intake & Output 08/14/20 08/15/20 08/15/20 22:59 06:59 14:59 Intake Total 200 Output Total 625 Balance -425 Lab Results - Last 24 hrs: Laboratory Results - last 24 hr 08/14/20 08/14/20 08/14/20 Range/Units 09:51 09:51 14:58 WBC 10.30 H (3.98-10.04) K/mm3 RBC 5.35 H (3.98-5.22) M/mm3 Hgb 12.9 (11.2-15.7) gm/dl Hct 47.1 H (34.1-44.9) % MCV 88.0 (79.4-94.8) fl MCH 24.1 L (25.6-32.2) pg MCHC 27.4 L (32.2-35.5) g/dl RDW Std Deviation 66.4 H (36.4-46.3) fL Plt Count 108 L (182-369) K/mm3 MPV 10.9 (9.4-12.3) fl Neut % (Auto) 95.4 H (34.0-71.1) % Lymph % (Auto) 1.1 L (19.3-51.7) % [place] % (Auto) 3.2 L (4.7-12.5) % Eos % (Auto) 0 L (0.7-5.8) Baso % (Auto) 0.0 L (0.1-1.2) % Neut # (Auto) 9.83 H (1.56-6.13) K/mm3 Lymph # (Auto) 0.11 L (1.18-3.74) K/mm3 [place] # (Auto) 0.33 (0.24-0.36) K/mm3 Eos # (Auto) 0.00 L (0.04-0.36) K/mm3 Baso # (Auto) 0.00 L (0.01-0.08) K/mm3 Manual Slide Review Abnormal smear Puncture Site Rt radial ABG pH 7.40 (7.35-7.45) ABG pCO2 67.3 H (35.0-45.0) mmHg ABG pO2 55.0 L (80.0-100.0) mmHg ABG HCO3 40.9 H (22.0-26.0) meq/L ABG O2 Saturation 85.9 L (96.0-97.0) % ABG Base Excess 13.6 H (-2-2.0) Anil Test Positive A-a Gradient 89 mmHg O2 Delivery Device Nasal cannula Oxygen Flow Rate 3.0 FiO2 32.00 (21.00-100.00) % Sodium 142 (136-145) mEq/L Potassium 3.7 (3.5-5.1) mEq/L Chloride 97 L (98-107) mEq/L Carbon Dioxide 39 H (21-32) mEq/L Anion Gap 9.7 (5-15) BUN 32 H (7-18) mg/dL Creatinine 0.8 (0.55-1.02) mg/dL Est Cr Clr Drug Dosing 55.45 mL/min Estimated GFR (MDRD) > 60 (>60) mL/min BUN/Creatinine Ratio 40.0 H (14-18) Glucose 150 H (80-115) mg/dL POC Glucose (80-115) mg/dL Calcium 9.2 (8.5-10.1) mg/dL Magnesium 2.2 (1.8-2.4) mg/dl 08/15/20 Range/Units 06:10 WBC (3.98-10.04) K/mm3 RBC (3.98-5.22) M/mm3 Hgb (11.2-15.7) gm/dl Hct (34.1-44.9) % MCV (79.4-94.8) fl MCH (25.6-32.2) pg MCHC (32.2-35.5) g/dl RDW Std Deviation (36.4-46.3) fL Plt Count (182-369) K/mm3 MPV (9.4-12.3) fl Neut % (Auto) (34.0-71.1) % Lymph % (Auto) (19.3-51.7) % [place] % (Auto) (4.7-12.5) % Eos % (Auto) (0.7-5.8) Baso % (Auto) (0.1-1.2) % Neut # (Auto) (1.56-6.13) K/mm3 Lymph # (Auto) (1.18-3.74) K/mm3 [place] # (Auto) (0.24-0.36) K/mm3 Eos # (Auto) (0.04-0.36) K/mm3 Baso # (Auto) (0.01-0.08) K/mm3 Manual Slide Review Puncture Site ABG pH (7.35-7.45) ABG pCO2 (35.0-45.0) mmHg ABG pO2 (80.0-100.0) mmHg ABG HCO3 (22.0-26.0) meq/L ABG O2 Saturation (96.0-97.0) % ABG Base Excess (-2-2.0) Anil Test A-a Gradient mmHg O2 Delivery Device Oxygen Flow Rate FiO2 (21.00-100.00) % Sodium (136-145) mEq/L Potassium (3.5-5.1) mEq/L Chloride (98-107) mEq/L Carbon Dioxide (21-32) mEq/L Anion Gap (5-15) BUN (7-18) mg/dL Creatinine (0.55-1.02) mg/dL Est Cr Clr Drug Dosing mL/min Estimated GFR (MDRD) (>60) mL/min BUN/Creatinine Ratio (14-18) Glucose (80-115) mg/dL POC Glucose 130 H (80-115) mg/dL Calcium (8.5-10.1) mg/dL Magnesium (1.8-2.4) mg/dl MARITZA Results - Last 24 hrs: Microbiology 08/07/20 22:17 Aerobic Blood Culture - Final Blood - Venous - Lab Draw NO GROWTH AFTER 7 DAYS Anaerobic Blood Culture - Final NO GROWTH AFTER 7 DAYS 08/07/20 22:32 Aerobic Blood Culture - Final Blood - Venous NO GROWTH AFTER 7 DAYS Anaerobic Blood Culture - Final NO GROWTH AFTER 7 DAYS Med Orders - Current: Current Medications Acetaminophen (Tylenol) 975 mg PO Q6H PRN PRN Reason: Pain Acetazolamide (Diamox) 250 mg PO BID [facility] Stop: 08/15/20 21:01 Last Admin: 08/14/20 20:29 Dose: 250 mg Documented by: Albuterol (Proventil Neb Soln) 2.5 mg NEB Q2H PRN PRN Reason: Shortness Of Breath/wheezing Albuterol/Ipratropium (Duoneb 3.0-0.5 Mg/3 Ml) 3 ml NEB BID [facility] Last Admin: 08/15/20 07:59 Dose: 3 ml Documented by: Aspirin (Aspirin) 81 mg PO DAILY [facility] Last Admin: 08/14/20 08:25 Dose: 81 mg Documented by: Benzocaine/Menthol (Cepacol Sore Throat) 1 lozenge MUCMEM Q4H PRN PRN Reason: Sore Throat Carvedilol (Coreg) 12.5 mg PO BID [facility] Last Admin: 08/14/20 20:28 Dose: 12.5 mg Documented by: Enoxaparin Sodium (Lovenox) 40 mg SUBCUT DAILY [facility] Last Admin: 08/14/20 08:24 Dose: 40 mg Documented by: Furosemide (Lasix) 20 mg PO DAILY [facility] Last Admin: 08/14/20 08:24 Dose: 20 mg Documented by: Hydralazine HCl (Apresoline) 20 mg IVPUSH Q4H PRN PRN Reason: Hypertension Last Admin: 08/13/20 17:32 Dose: 20 mg Documented by: Metformin HCl (Glucophage) 500 mg PO BIDMEALS [facility] Last Admin: 08/15/20 06:06 Dose: 500 mg Documented by: Methylprednisolone Sodium Succinate (Solu-Medrol) 40 mg IVPUSH Q12H [facility] Last Admin: 08/14/20 20:30 Dose: 40 mg Documented by: Mometasone Furoate/Formoterol Fumar (Dulera 200-5 Mcg) 2 puff IH BID [facility] Last Admin: 08/15/20 07:59 Dose: 2 puff Documented by: Morphine Sulfate (Morphine) 2 mg IVPUSH Q2H PRN PRN Reason: Pain Last Admin: 08/11/20 15:06 Dose: 2 mg Documented by: Nystatin (Nystop) 1 gm TOP QID PRN PRN Reason: Itching Last Admin: 08/10/20 10:12 Dose: 1 applic Documented by: Ondansetron HCl (Zofran) 4 mg IV Q4H PRN PRN Reason: Nausea/Vomiting Last Admin: 08/10/20 08:52 Dose: 4 mg Documented by: Oxycodone HCl (Oxycodone) 10 mg PO Q4H PRN PRN Reason: Pain Last Admin: 08/14/20 20:30 Dose: 10 mg Documented by: Simvastatin (Zocor) 20 mg PO BEDTIME [facility] Last Admin: 08/14/20 20:29 Dose: 20 mg Documented by: Sodium Chloride (Saline Flush) 10 ml FLUSH ASDIRECTED PRN PRN Reason: Keep Vein Open Last Admin: 08/07/20 20:35 Dose: 10 ml Documented by: Spironolactone (Aldactone) 25 mg PO DAILY [facility] Last Admin: 08/14/20 08:24 Dose: 25 mg Documented by: Discontinued Medications Acetazolamide (Diamox) 250 mg IVPUSH ONETIME ONE Stop: 08/10/20 16:01 Last Admin: 08/10/20 16:38 Dose: 250 mg Documented by: Acetazolamide (Diamox) 250 mg IVPUSH ONETIME ONE Stop: 08/11/20 04:01 Last Admin: 08/11/20 03:49 Dose: 250 mg Documented by: Acetazolamide (Diamox) 250 mg IVPUSH ONETIME ONE Stop: 08/13/20 10:27 Last Admin: 08/13/20 11:10 Dose: Not Given Documented by: Acetazolamide (Diamox) 250 mg PO ONETIME ONE Stop: 08/13/20 11:09 Last Admin: 08/13/20 11:42 Dose: 250 mg Documented by: Albuterol/Ipratropium (Duoneb 3.0-0.5 Mg/3 Ml) 3 ml NEB Q6HRRT MESSI Last Admin: 08/09/20 02:18 Dose: 3 ml Documented by: Albuterol/Ipratropium (Duoneb 3.0-0.5 Mg/3 Ml) 3 ml NEB BIDRT MESSI Last Admin: 08/13/20 21:13 Dose: 3 ml Documented by: Bisacodyl (Dulcolax) 10 mg RECTAL ONETIME ONE Stop: 08/09/20 10:46 Last Admin: 08/09/20 12:44 Dose: Not Given Documented by: Bisacodyl (Dulcolax) 10 mg RECTAL ONETIME ONE Stop: 08/10/20 09:44 Last Admin: 08/10/20 10:12 Dose: 10 mg Documented by: Furosemide (Lasix) 40 mg IV ONETIME ONE Stop: 08/07/20 21:51 Last Admin: 08/07/20 21:56 Dose: 40 mg Documented by: Furosemide (Lasix) 40 mg IVPUSH BIDDIURETIC [facility] Last Admin: 08/09/20 06:16 Dose: 40 mg Documented by: Furosemide (Lasix) 40 mg IVPUSH BIDDIURETIC [facility] Last Admin: 08/10/20 13:53 Dose: 40 mg Documented by: Ceftriaxone Sodium 2 gm/ (Sodium Chloride) 100 mls @ 200 mls/hr IV ONETIME ONE Stop: 08/07/20 22:28 Last Admin: 08/07/20 22:39 Dose: 200 mls/hr Documented by: Ceftriaxone Sodium 1 gm/ (Sodium Chloride) 100 mls @ 200 mls/hr IV Q24H [facility] Last Admin: 08/11/20 21:56 Dose: 200 mls/hr Documented by: Magnesium Sulfate 4 gm/ Premix 50 mls @ 12.5 mls/hr IV ONETIME ONE Stop: 08/09/20 11:59 Last Admin: 08/09/20 08:09 Dose: 12.5 mls/hr Documented by: Sodium Chloride (Normal Saline) 100 mls @ 75 mls/hr IV ASDIRECTED [facility] Stop: 08/10/20 16:30 Last Admin: 08/10/20 14:17 Dose: 75 mls/hr Documented by: Potassium Chloride/Sodium Chloride (Normal Saline With 20 Meq Kcl) 1,000 mls @ 75 mls/hr IV ASDIRECTED [facility] Last Admin: 08/11/20 18:51 Dose: 75 mls/hr Documented by: Sodium Chloride (Normal Saline) 250 mls @ 10 mls/hr IV ASDIRECTED [facility] Sodium Chloride (Normal Saline) Confirm Administered Dose 500 mls @ as directed .ROUTE .STK-MED ONE Stop: 08/11/20 13:35 Last Admin: 08/11/20 13:58 Dose: Not Given Documented by: Potassium Chloride 10 meq/ (Premix) 100 mls @ 100 mls/hr IV Q1H [facility] Stop: 08/12/20 14:29 Last Admin: 08/12/20 16:41 Dose: 75 mls/hr Documented by: Ceftriaxone Sodium 1 gm/ (Sodium Chloride) 100 mls @ 200 mls/hr IV Q24H [facility] Last Admin: 08/14/20 02:06 Dose: Not Given Documented by: Influenza Virus Vaccine (Pharmacy To Dose - Influenza Vaccine) 1 each IM ONETIME ONE Stop: 08/08/20 00:15 Influenza Virus Vaccine (Fluzone High-Dose Quad 2020-21) 240 mcg IM .ONCE ONE Stop: 08/08/20 10:01 Last Admin: 08/11/20 22:38 Dose: Not Given Documented by: Iopamidol (Isovue-370 (76%)) 100 ml IVPUSH ONETIME ONE Stop: 08/10/20 13:58 Last Admin: 08/10/20 14:17 Dose: 100 ml Documented by: Magnesium Hydroxide (Milk Of Magnesia) 30 ml PO ONETIME ONE Stop: 08/10/20 09:23 Last Admin: 08/10/20 10:58 Dose: Not Given Documented by: Magnesium Hydroxide (Milk Of Magnesia) 30 ml PO ONETIME ONE Stop: 08/15/20 06:01 Last Admin: 08/15/20 06:06 Dose: 30 ml Documented by: Methylprednisolone Sodium Succinate (Solu-Medrol) 125 mg IVPUSH ONETIME ONE Stop: 08/07/20 23:32 Last Admin: 08/07/20 23:54 Dose: 125 mg Documented by: Methylprednisolone Sodium Succinate (Solu-Medrol) 40 mg IVPUSH Q6H MESSI Last Admin: 08/12/20 14:33 Dose: 40 mg Documented by: Metoclopramide HCl (Reglan) 5 mg IVPUSH ONETIME ONE Stop: 08/10/20 09:35 Last Admin: 08/10/20 09:56 Dose: 5 mg Documented by: Morphine Sulfate (Morphine) 2 mg IVPUSH ONETIME ONE Stop: 08/07/20 21:55 Last Admin: 08/07/20 22:02 Dose: 2 mg Documented by: Morphine Sulfate (Morphine) 2 mg IVPUSH Q2H PRN PRN Reason: Pain (severe 7-10) Stop: 08/08/20 23:29 Last Admin: 08/08/20 20:00 Dose: 2 mg Documented by: Non-Formulary Medication (Varenicline Tartrate [Chantix]) 1 mg PO DAILY [facility] Potassium Chloride (Klor-Con M20) 40 meq PO ONETIME ONE Stop: 08/09/20 08:01 Last Admin: 08/09/20 08:08 Dose: 40 meq Documented by: Sodium Chloride (Saline Flush) 10 ml FLUSH ONETIME PRN PRN Reason: IV FLUSH Stop: 08/10/20 16:30 Last Admin: 08/10/20 14:17 Dose: 10 ml Documented by: - Exam Quality Assessment: Reports: Supplemental Oxygen General: Reports: Alert, Oriented, Cooperative, No Acute Distress HEENT: Reports: Pupils Equal, Pupils Reactive, EOMI, Mucous Membr. Moist/[place] Neck: Reports: Supple Lungs: Reports: Normal Respiratory Effort, Decreased Breath Sounds Cardiovascular: Reports: Regular Rate, Regular Rhythm GI/Abdominal Exam: Normal Bowel Sounds, Soft, Non-Tender, No Distention, No Abnormal Bruit (Female) Exam: Deferred Rectal (Female) Exam: Deferred Back Exam: Reports: Normal Inspection, Full Range of Motion Extremities: Normal Inspection, Normal Range of Motion, Non-Tender, No Pedal Edema, Normal Capillary Refill Skin: Reports: Warm, Dry, Intact, Ecchymosis (all over) Neurological: Reports: No New Focal Deficit Psy/Mental Status: Reports: Alert, Normal Affect, Normal Mood
[2020-08-15] MEDS: methylPREDNISolone Sodium Succinate 40 MG/1 ML SDV IVPUSH SCH (08:29)
[2020-08-15] MEDS: Carvedilol 12.5 MG Tab PO SCH (08:29)
[2020-08-15] MEDS: Enoxaparin 40 MG/0.4 ML Syringe SUBCUT SCH (08:29)
[2020-08-15] MEDS: Spironolactone 25 MG Tab PO SCH (08:29)
[2020-08-15] MEDS: acetaZOLAMIDE 250 MG Tab PO SCH (08:30)
[2020-08-15] MEDS: Furosemide 20 MG Tab PO SCH (08:30)
[2020-08-15] MEDS: Aspirin 81 MG Tab.Chew PO SCH (08:30)
[2020-08-15] MEDS: oxyCODONE 5 MG Tab PO PRN (11:13)
[2020-08-15] MEDS: FLU Vacc QV2020-21(65YR UP)/PF 240 MCG/0.7 ML Syringe IM ONE (11:56)
== END 2020-08-15 12:00 | disposition home health service (06) | DRG 291 ==
LOC: JD.ED 20:14 → JD.ICU 22:58 → JD.MS 08-14 14:41
PROVIDERS: ADMIT Family Medicine; ATTEND Family Medicine
PROC: 5A09457 Assistance with Respiratory Ventilation, 24-96 Consecutive Hours, Continuous Positive Airway Pressure (ICD-10-PCS; principal; 2020-08-07)
PROC: 3E02340 Introduction of Influenza Vaccine into Muscle, Percutaneous Approach (ICD-10-PCS; 2020-08-15)
DX: J44.1 Chronic obstructive pulmonary disease with (acute) exacerbation (principal); I11.0 Hypertensive heart disease with heart failure; I13.0 Hypertensive heart and chronic kidney disease with heart failure and stage 1 through stage 4 chronic kidney disease, or unspecified chronic kidney disease; I50.33 Acute on chronic diastolic (congestive) heart failure; S32.10XA Unspecified fracture of sacrum, initial encounter for closed fracture; N39.0 Urinary tract infection, site not specified; N17.9 Acute kidney failure, unspecified; E87.4 Mixed disorder of acid-base balance; E87.2 Acidosis; Z87.891 Personal history of nicotine dependence; J43.9 Emphysema, unspecified; I50.9 Heart failure, unspecified; I25.10 Atherosclerotic heart disease of native coronary artery without angina pectoris; Z66 Do not resuscitate; Z20.822 Contact with and (suspected) exposure to COVID-19; N18.9 Chronic kidney disease, unspecified; F17.210 Nicotine dependence, cigarettes, uncomplicated; E78.00 Pure hypercholesterolemia, unspecified; H54.7 Unspecified visual loss; B96.20 Unspecified Escherichia coli [E. coli] as the cause of diseases classified elsewhere; D72.829 Elevated white blood cell count, unspecified; T38.0X5A Adverse effect of glucocorticoids and synthetic analogues, initial encounter; E87.6 Hypokalemia; R06.89 Other abnormalities of breathing; R73.9 Hyperglycemia, unspecified; E83.42 Hypomagnesemia; I08.3 Combined rheumatic disorders of mitral, aortic and tricuspid valves; I95.9 Hypotension, unspecified; Z23 Encounter for immunization; Z79.899 Other long term (current) drug therapy; W18.39XA Other fall on same level, initial encounter
CPT/HCPCS: 36415; 36600 ×2; 70450; 71046; 72100; 72220; 80053; 81001; 82803; 83605; 83880; 84484; 85025; 86140; 87040 ×2; 87086; 87088; 87186; 93005; 94660; 96374; 96375; 99285; J0696; J1940; J2270; U0002; 71045; 71045-26; 71275; 71275-26; 80048; 82962; 83735; 84100; 85379; 90662; 93010; 93306; 94640; 94761; 94762; 97110-GP; 97116-GP; 97162-GP; 97530-GP; 99222; 99232; 99233; 99239; A9270-GY; G0008; J0360; J1120; J1650; J2405; J2765; J2920; J2930; J3475; J3480; J7620-GY; Q9967

== ENCOUNTER 2024-09-02 11:47 | Emergency (ER) | payer MEDICARE, MEDICAID ==
[2024-09-02] MEDS: Albuterol/Ipratropium 3.0-0.5 MG/3 ML Neb Soln NEB ONE (12:24)
[2024-09-02 12:35] LABS: BASOPHILS PERCENT AUTO 0.2 % (0.0-1.0); EOSINOPHILS PERCENT AUTO 0.1 % (0.0-6.0); HEMATOCRIT 29.5 % (37.0-47.0); HEMOGLOBIN 8.5 gm/dl (12.0-16.0); IMMATURE GRAN ABSOLUTE AUTO 0.08 K/mm3 (0.00-0.05); IMMATURE GRAN PERCENT AUTO 0.6 % (0.0-0.4); LYMPHOCYTES ABSOLUTE AUTO 0.3 K/mm3 (1.0-4.8); LYMPHOCYTES PERCENT AUTO 2.2 % (24.0-44.0); MEAN CORPUSCULAR HEMOGLOBIN 25.3 pg (28.0-32.0); MEAN CORPUSCULAR HGB CONC 28.8 g/dl (32.0-36.0); MEAN CORPUSCULAR VOLUME 87.8 fl (83.0-99.0); MEAN PLATELET VOLUME 9.6 fl (9.4-12.3); MONOCYTES ABSOLUTE AUTO 1.4 K/mm3 (0.0-0.8); NEUTROPHILS PERCENT AUTO 86.9 % (41.0-71.0); PLATELET COUNT,PLT 227 K/mm3 (150-400); RED BLOOD CELL COUNT 3.36 M/mm3 (4.10-5.30); WHITE BLOOD CELL COUNT,WBC 13.75 K/mm3 (3.9-11.3)
[2024-09-02] MEDS: methylPREDNISolone Sodium Succinate 125 MG/2 ML SDV IVPUSH ONE (12:40)
[2024-09-02] MEDS: Sodium Chloride 0.9% 10 ML Syringe FLUSH PRN (12:44)
[2024-09-02 12:59] LABS: A/G RATIO 0.9 (1-2); ALBUMIN 3.7 g/dl (3.4-5.0); ANION GAP 4.2 (5-15); BILIRUBIN TOTAL 0.4 mg/dL (0.2-1.0); BUN/CREATININE RATIO 10.8 (14-18); C-REACTIVE PROTEIN 1.11 mg/dL (<0.30); CALCIUM 8.8 mg/dL (8.5-10.1); CREATININE 1.2 mg/dL (0.55-1.02); EST CRCL DRUG DOSING (CG) 34.99 mL/min; POTASSIUM,K 4.2 mEq/L (3.5-5.1); PROTEIN TOTAL,TP 7.8 g/dl (6.4-8.2)
[2024-09-02 13:34] LABS: LACTIC ACID 1.1 mmol/L (0.4-2.0)
[2024-09-02] MEDS: Piperacillin/Tazobactam 4.5 GM in Sodium Chloride 0.9% 100 ML IV ONE (14:00)
[2024-09-02 14:07] LABS: SLIDE REVIEW ABNORMAL SMEAR
[2024-09-02] MEDS: Oseltamivir 75 MG Cap PO ONE (16:34)
== END 2024-09-02 16:45 | disposition home or self-care (01) ==
LOC: SUPCPDRO 11:47 → JD.ED 11:47
DX: J96.11 Chronic respiratory failure with hypoxia (principal); J44.1 Chronic obstructive pulmonary disease with (acute) exacerbation; E87.20 Acidosis, unspecified; J11.00 Influenza due to unidentified influenza virus with unspecified type of pneumonia; I11.0 Hypertensive heart disease with heart failure; I50.9 Heart failure, unspecified; E78.00 Pure hypercholesterolemia, unspecified; Z91.018 Allergy to other foods; Z79.82 Long term (current) use of aspirin; Z79.51 Long term (current) use of inhaled steroids; Z79.899 Other long term (current) drug therapy; Z79.84 Long term (current) use of oral hypoglycemic drugs; Z87.891 Personal history of nicotine dependence; Z99.81 Dependence on supplemental oxygen
CPT/HCPCS: 36415; 71046; 80053; 83605; 83880; 84484; 85025; 86140; 87040; 87428; 93005; 94640; 96365; 96375; 99285; A9270; J2543; J2919; 93010; J7620-GY

== ENCOUNTER 2025-05-20 13:18 | Emergency (ER) | payer MEDICARE, MEDICAID ==
[2025-05-20 13:50] LABS: BASOPHILS ABSOLUTE AUTO 0.1 K/mm3 (0.0-0.2); BASOPHILS PERCENT AUTO 0.5 % (0.0-1.0); EOSINOPHILS ABSOLUTE AUTO 0.4 K/mm3 (0.0-0.4); EOSINOPHILS PERCENT AUTO 2.8 % (0.0-6.0); IMMATURE GRAN ABSOLUTE AUTO 0.05 K/mm3 (0.00-0.05); IMMATURE GRAN PERCENT AUTO 0.4 % (0.0-0.4); LYMPHOCYTES ABSOLUTE AUTO 0.8 K/mm3 (1.0-4.8); LYMPHOCYTES PERCENT AUTO 5.9 % (24.0-44.0); MEAN PLATELET VOLUME 8.9 fl (9.4-12.3); MONOCYTES ABSOLUTE AUTO 0.8 K/mm3 (0.0-0.8); MONOCYTES PERCENT AUTO 6.1 % (0.0-8.0); NEUTROPHILS ABSOLUTE AUTO 10.9 K/mm3 (1.8-7.7); NEUTROPHILS PERCENT AUTO 84.3 % (41.0-71.0); NRBC ABSOLUTE 0.00 (0.00-0.02); NRBC PERCENT 0.0 % (0.0-0.2); RED BLOOD CELL COUNT 3.46 M/mm3 (4.10-5.30); WHITE BLOOD CELL COUNT,WBC 12.92 K/mm3 (3.9-11.3)
[2025-05-20 13:53] LABS: PLATELET COUNT,PLT 345 K/mm3 (150-400)
[2025-05-20 14:14] LABS: A/G RATIO 0.8 (1-2); ALANINE AMINOTRANSFERASE,ALT 16.0 U/L (14-59); ASPARTATE AMNIOTRANSFERASE,AST 23.0 U/L (15-37); BILIRUBIN TOTAL 0.4 mg/dL (0.2-1.0); BLOOD UREA NITROGEN,BUN 13.0 mg/dL (7-18); CARBON DIOXIDE,CO2 32.0 mEq/L (21-32); CHLORIDE,CL 101.0 mEq/L (98-107); CREATININE 1.2 mg/dL (0.55-1.02); EST CRCL DRUG DOSING (CG) 34.5 mL/min; ESTIMATED GFR 49.0 mL/min (>60); GLUCOSE RANDOM 106.0 mg/dL (70-99); POTASSIUM,K 4.2 mEq/L (3.5-5.1); PROTEIN TOTAL,TP 7.6 g/dl (6.4-8.2); SODIUM,NA 141.0 mEq/L (136-145)
[2025-05-20] MEDS ORDERED: Sodium Chloride 0.9% 10 ML Syringe FLUSH ONE (14:24)
[2025-05-20] MEDS: Iopamidol 755 Mg/ML 100 ML Bottle IVPUSH ONE (14:37)
[2025-05-20] MEDS: Sodium Chloride 0.9% 10 ML Syringe FLUSH PRN (14:37)
[2025-05-20 15:20] LABS: TSH 0.526 uIU/mL (0.358-3.74)
== END 2025-05-20 17:35 | disposition home or self-care (01) ==
LOC: JD.ED 13:18
DX: R22.1 Localized swelling, mass and lump, neck (principal); J44.9 Chronic obstructive pulmonary disease, unspecified; I11.0 Hypertensive heart disease with heart failure; I50.9 Heart failure, unspecified; E11.9 Type 2 diabetes mellitus without complications; E78.00 Pure hypercholesterolemia, unspecified; D72.829 Elevated white blood cell count, unspecified; R79.89 Other specified abnormal findings of blood chemistry; Z91.018 Allergy to other foods; Z79.899 Other long term (current) drug therapy; Z79.82 Long term (current) use of aspirin; Z79.84 Long term (current) use of oral hypoglycemic drugs; Z79.51 Long term (current) use of inhaled steroids; Z79.52 Long term (current) use of systemic steroids
CPT/HCPCS: 36415; 70491; 80053; 84443; 85025; 86140; 86850; 86900; 86901; 99283; Q9967

== ENCOUNTER 2025-05-24 14:00 | Emergency (ER) | payer MEDICARE, MEDICAID ==
[2025-05-24 14:43] LABS: BASOPHILS ABSOLUTE AUTO 0.1 K/mm3 (0.0-0.2); BASOPHILS PERCENT AUTO 0.5 % (0.0-1.0); EOSINOPHILS ABSOLUTE AUTO 0.5 K/mm3 (0.0-0.4); EOSINOPHILS PERCENT AUTO 4.3 % (0.0-6.0); IMMATURE GRAN ABSOLUTE AUTO 0.06 K/mm3 (0.00-0.05); IMMATURE GRAN PERCENT AUTO 0.5 % (0.0-0.4); LYMPHOCYTES ABSOLUTE AUTO 0.7 K/mm3 (1.0-4.8); LYMPHOCYTES PERCENT AUTO 6.5 % (24.0-44.0); MEAN PLATELET VOLUME 9.4 fl (9.4-12.3); MONOCYTES ABSOLUTE AUTO 0.9 K/mm3 (0.0-0.8); MONOCYTES PERCENT AUTO 8.1 % (0.0-8.0); NEUTROPHILS ABSOLUTE AUTO 8.9 K/mm3 (1.8-7.7); NEUTROPHILS PERCENT AUTO 80.1 % (41.0-71.0); NRBC ABSOLUTE 0.00 (0.00-0.02); NRBC PERCENT 0.0 % (0.0-0.2); PLATELET COUNT,PLT 342 K/mm3 (150-400); RED BLOOD CELL COUNT 3.30 M/mm3 (4.10-5.30); WHITE BLOOD CELL COUNT,WBC 11.10 K/mm3 (3.9-11.3)
[2025-05-24 15:17] LABS: A/G RATIO 0.8 (1-2); ALANINE AMINOTRANSFERASE,ALT 14.0 U/L (14-59); ASPARTATE AMNIOTRANSFERASE,AST 23.0 U/L (15-37); BILIRUBIN TOTAL 0.3 mg/dL (0.2-1.0); BLOOD UREA NITROGEN,BUN 11.0 mg/dL (7-18); CARBON DIOXIDE,CO2 31.0 mEq/L (21-32); CHLORIDE,CL 99.0 mEq/L (98-107); CREATINE KINASE,CK 47.0 U/L (26-192); CREATININE 1.3 mg/dL (0.55-1.02); EST CRCL DRUG DOSING (CG) 31.85 mL/min; ESTIMATED GFR 44.0 mL/min (>60); GLUCOSE RANDOM 115.0 mg/dL (70-99); POTASSIUM,K 4.0 mEq/L (3.5-5.1); PROTEIN TOTAL,TP 6.9 g/dl (6.4-8.2); SODIUM,NA 138.0 mEq/L (136-145); TROPONIN I HIGH SENSITIVITY 8.0 pg/mL (<=51)
[2025-05-24] MEDS ORDERED: Naloxone 0.4 MG/ML SDV IVPUSH PRN (16:13)
[2025-05-24] MEDS: Magnesium Sulf/Wat 4 GM/50 mL 4 GM in Premix Bag 1 BAG IV ONE (16:24)
[2025-05-24] MEDS: Ondansetron 4 MG/2 ML SDV IVPUSH ONE ×2 (16:24→17:28)
== END 2025-05-24 17:40 | disposition home or self-care (01) ==
LOC: JD.ED 14:00
DX: J44.9 Chronic obstructive pulmonary disease, unspecified (principal); D64.89 Other specified anemias; R21 Rash and other nonspecific skin eruption; E83.42 Hypomagnesemia; C76.0 Malignant neoplasm of head, face and neck; Z99.81 Dependence on supplemental oxygen; Z66 Do not resuscitate; I11.0 Hypertensive heart disease with heart failure; I50.9 Heart failure, unspecified; E78.00 Pure hypercholesterolemia, unspecified; Z91.018 Allergy to other foods; E86.0 Dehydration; Z79.82 Long term (current) use of aspirin; Z79.84 Long term (current) use of oral hypoglycemic drugs; Z79.899 Other long term (current) drug therapy
CPT/HCPCS: 36415; 71045; 80053; 82550; 83735; 83880; 84484; 85025; 96365; 96375; 96376; 99284; J2405; J3475; J1171